=== PATIENT | female | born 1965 ===

== ENCOUNTER 2016-11-16 22:43 | Inpatient (IN) | payer OTHER ==
[2016-11-16 23:54] LABS: VENOUS BLOOD GAS BASE EXCESS -1.5 mmol/L (0.0-2.0); VENOUS BLOOD GAS PCO2 37 mmHg (40-60)
[2016-11-16 23:55] LABS: INR 1.4
[2016-11-16 23:57] LABS: CHLORIDE 93 mmol/L (98-107); POTASSIUM 3.7 mmol/L (3.6-5.2); SODIUM 127 mmol/L (132-148)
[2016-11-17] LABS: ALB/GLOB RATIO 0.8 (1.0-2.1); ALKALINE PHOSPHATASE 114 U/L (38-126); ALT/SGPT 117 U/L (9-52); AST/SGOT 178 U/L (14-36); BILIRUBIN,TOTAL 1.2 mg/dL (0.2-1.3); BLOOD UREA NITROGEN 22 mg/dL (7-17); CARBON DIOXIDE 22 mmol/L (22-30); GFR AFRICAN-AMERICAN > 60; GLUCOSE,RANDOM 195 mg/dL (65-105); TOTAL PROTEIN 6.8 g/dL (6.3-8.3)
[2016-11-17 00:01] LABS: BASO % 1.4 % (0.0-2.0); CALCIUM 7.9 mg/dl (8.6-10.4); EOS % 0.2 % (0.0-4.0); HEMATOCRIT 24.9 % (34.0-47.0); LYMPH # 1.5 K/uL (1.0-4.3); LYMPH % 53.3 % (20.0-40.0); MEAN CELL VOLUME 80.4 fL (81.0-99.0); MEAN CORPUSCULAR HEMOGLOBIN 26.8 pg (27.0-31.0); MEAN CORPUSCULAR HGB CONC 33.3 g/dL (33.0-37.0); MEAN PLATELET VOLUME 9.7 fL (7.2-11.7); MONO # 0.4 K/uL (0.0-0.8); MONO % 12.8 % (0.0-10.0); NRBC % 0.2 % (0.0-2.0); RED CELL DISTRIBUTION WIDTH 20.4 % (11.5-14.5); WHITE BLOOD COUNT 2.9 K/uL (4.8-10.8)
[2016-11-17 00:11] LABS: PLATELET COUNT 46 K/uL (130-400)
[2016-11-17 01:04] LABS: RBC URINE 4 /hpf (0-3); URINE BILIRUBIN NEGATIVE (NEGATIVE); URINE BLOOD 2+ (NEGATIVE); URINE COLOR Straw (YELLOW); URINE GLUCOSE (UA) NORMAL (Normal); URINE KETONE NEGATIVE (NEGATIVE); URINE LEUKOCYTE ESTERASE NEG Leu/uL (Negative); URINE PROTEIN NEGATIVE (NEGATIVE); URINE UROBILINOGEN NORMAL mg/dL (0.2-1.0); WBC URINE 1 /hpf (0-5)
[2016-11-17] MEDS ORDERED: Sodium Chloride 0.9% 1,000 ML IV ONE ×2 (02:33→03:16)
--- NOTE | 2016-11-17 02:43 | C.PDOC ---
History Of Present Illness Patient presents to the emergency room with for complaints of generalized weakness and poor appetite for 2 weeks. reports patient was last seen in [facility] (Former[facility]) 2 weeks ago. says patient was told that she had a UTI and was discharged home with Cipro. notes patient used Cipro for a few days and developed abdominal pain. Patient contacted her PMD and was told to stop using those meds. states that patient continued to experience poor appetite and weakness. Patient denies any fever, chills, diarrhea, cough, shortness of breath, or any other complaints. Time Seen by Provider: 11/16/16 23:16 Chief Complaint (Nursing): Weakness/Neurological Deficit History Per: Patient, Family () History/Exam Limitations: no limitations Onset/Duration Of Symptoms: Other (2 weeks) Current Symptoms Are (Timing): Still Present Associated Symptoms Preceding Syncopal Episode: No Predromal Symptoms (Sudden Onset) Seizure Or Post-ictal Symptoms: None Possible Causative Factor(s): New Medications (Used Cipro a few weeks ago. ) Fall Associated With With Symptoms: No Past Medical History Reviewed: Historical Data, Nursing Documentation, Vital Signs Vital Signs: Last Vital Signs Temp 97.1 F L 11/19/16 15:46 Pulse 67 11/19/16 15:46 Resp 20 11/19/16 15:46 BP 117/76 11/19/16 15:46 Pulse Ox 98 11/19/16 15:46 - Medical History PMH: No Chronic Diseases Surgical History: No Surg Hx Family History: States: Unknown Family Hx - Social History Hx Tobacco Use: No Hx Alcohol Use: No Hx Substance Use: No Review Of Systems Constitutional: Positive for: Weakness (Generalized weakness), Other (Poor appetite). Negative for: Fever, Chills Respiratory: Negative for: Cough, Shortness of Breath Gastrointestinal: Negative for: Diarrhea Physical Exam - Physical Exam Appears: Well, Non-toxic Skin: Normal Color, Warm, Dry Head: Atraumatic, Normacephalic Chest: Symmetrical Cardiovascular: Rhythm Regular, No Murmur Respiratory: Normal Breath Sounds, No Rales, No Rhonchi, No Wheezing Gastrointestinal/Abdominal: Soft, No Tenderness, No Guarding, No Rebound Extremity: Normal ROM, No Pedal Edema Neurological/Psych: Oriented x3, Normal Speech, Normal Cognition ED Course And Treatment - Laboratory Results Result Diagrams: 11/19/16 07:49 11/19/16 07:49 O2 Sat by Pulse Oximetry: 99 Medical Decision Making Medical Decision Making: Plan: -- Head CT -- CXR -- EKG -- Labs Pt stable in the ED however, labs markedly abnormal Pt will need admission for further evaluation and treatment Case discussed with dr Zhong agrees with plan Disposition - Disposition Disposition: HOSPITALIZED Disposition Time: 00:00 Condition: SERIOUS - Clinical Impression Clinical Impression: Pancytopenia, Weakness generalized, Coagulopathy - Scribe Statement The provider has reviewed the documentation as recorded by the Erinnibe Carlos Garcia All medical record entries made by the Erinnibe were at my direction and personally dictated by me. I have reviewed the chart and agree that the record accurately reflects my personal performance of the history, physical exam, medical decision making, and the department course for this patient. I have also personally directed, reviewed, and agree with the discharge instructions and disposition. Decision To Admit - Pt Status Changed To: Hospital Disposition Of: Inpatient - Admit Certification Admit to Inpatient:: After my assessment, the patient will require hospitalization for at least two midnights. This is because of the severity of symptoms shown, intensity of services needed, and/or the medical risk in this patient being treated as an outpatient. - InPatient: Physician Admission Certification: I certify that this patient requires 2 or more midnights of care for the following reason:: see note - . Bed Request Type: Regular Admitting Physician: Ross Ramos Patient Diagnosis: Pancytopenia, Weakness generalized, Coagulopathy
[2016-11-17 04:26] LABS: CHLORIDE 101 mmol/L (98-107); POTASSIUM 3.4 mmol/L (3.6-5.2); SODIUM 133 mmol/L (132-148)
[2016-11-17 04:28] LABS: BILIRUBIN,TOTAL 0.8 mg/dL (0.2-1.3); CARBON DIOXIDE 21 mmol/L (22-30); GFR AFRICAN-AMERICAN > 60
--- NOTE | 2016-11-17 04:28 | CP.PCM.HP ---
<Jennifer Glass - Last Filed: 11/17/16 04:35> History of Present Illness - History of Present Illness History of Present Illness: Internal medicine H & P for Dr. Farheen Glass, PGY-1 Pt S & E at bedside. 51 yo Green[place]ic speaking only F w/PMH sig for constipation admitted to hospital for weakness x 2-3 weeks. Per family- patient went to [facility] approx 3 wks ago- dx w/UTI, d/c'd on Cipro- took a few days of medication, then discontinued it due to abdominal pain per PMD recommendation. Patient has been very weak, talking and moving slower, talking lower than usual, very tired, has been in bed the majority of the days, sleeping a lot, not acting like herself Admits to nausea, fevers Q2 days (Tmax 101.5), chills/whole body shaking, feels cold, dysuria, urinary urgency, suprapubic abdominal pain, cough, dry throat, blurry vision, poor appetite, generalized weakness, fatigue, lethargy, constipation (chronic- last BM 2 days [employer]- eats fiber), cramping of feet, dizziness. Denies emesis, SOB, CP, headache, rhinorrhea, hematuria, urinary frequency, sick contacts, hematochezia, numbness or tingling of extremities. PMH: Constipation PSH: All: NKA SH: Admits to 1/2ppd x 20 yrs tobacco use, denies ETOH or illicit drug use. Is a home school teacher, usually very energetic. FH: Denies Present on Admission - Present on Admission Any Indicators Present on Admission: No History of DVT/PE: No History of Uncontrolled Diabetes: No Urinary Catheter: No Decubitus Ulcer Present: No Review of Systems - Review of Systems All systems: reviewed and no additional remarkable complaints except - Constitutional Constitutional: Chills, Fatigue, Fever, Lethargy, Malaise, Weakness. absent: Headache - EENT Eyes: Blurred Vision. absent: Diplopia Ears: Dizziness Nose/Mouth/Throat: Dry Mouth. absent: Nasal Congestion, Odynophagia, Sore Throat - Cardiovascular Cardiovascular: absent: Chest Pain, Leg Edema, Palpitations - Respiratory Respiratory: Cough. absent: Wheezing - Gastrointestinal Gastrointestinal: Abdominal Pain, Constipation, Nausea. absent: Diarrhea, Hematemesis, Hematochezia, Vomiting - Genitourinary Genitourinary: Dysuria, Urinary Urgency. absent: Hematuria, Urinary Frequency - Musculoskeletal Musculoskeletal: Muscle Cramps (feet). absent: Numbness, Tingling - Integumentary Integumentary: absent: Rash - Neurological Neurological: Dizziness, Weakness. absent: Headaches, Tingling - Psychiatric Psychiatric: Abnormal Sleep Pattern (increased), Change in Appetite (decreased) - Endocrine Endocrine: Polydipsia Past Patient History - Past Social History Smoking Status: Heavy Smoker > 10 Cigarettes Daily - PSYCHIATRIC Hx Substance Use: No - SURGICAL HISTORY Hx Surgeries: No Meds Allergies/Adverse Reactions: Allergies Allergy/AdvReac Type Severity Reaction Status Date / Time No Known Allergies Allergy Unverified 11/16/16 23:03 Physical Exam - Constitutional Appears: No Acute Distress, Other (tired) - Head Exam Head Exam: ATRAUMATIC, NORMAL INSPECTION, NORMOCEPHALIC - Eye Exam Eye Exam: EOMI, Normal appearance, PERRL Pupil Exam: NORMAL ACCOMODATION, PERRL - ENT Exam ENT Exam: Mucous Membranes Moist, Normal Exam Additional comments: lips appear dry - Neck Exam Neck exam: Positive for: Full Rom, Normal Inspection. Negative for: Lymphadenopathy, Tenderness - Respiratory Exam Respiratory Exam: Clear to Auscultation Bilateral, NORMAL BREATHING PATTERN. absent: Rales, Rhonchi, Wheezes - Cardiovascular Exam Cardiovascular Exam: REGULAR RHYTHM, +S1, +S2 - GI/Abdominal Exam GI & Abdominal Exam: Normal Bowel Sounds, Soft, Tenderness (suprapubic). absent : Distended, Firm, Guarding - Extremities Exam Extremities exam: Positive for: normal inspection. Negative for: pedal edema, tenderness - Neurological Exam Neurological exam: Alert, CN II-XII Intact, Oriented x3 Additional comments: speaks slowly, movements are slow - Psychiatric Exam Psychiatric exam: Normal Affect, Normal Mood - Skin Skin Exam: Dry, Intact, Normal Color, Warm Results - Vital Signs Recent Vital Signs: Last Vital Signs Temp 94.7 F L 11/16/16 22:56 Pulse 67 11/16/16 22:56 Resp 17 11/16/16 22:56 BP 115/61 11/16/16 22:56 Pulse Ox 99 11/17/16 02:43 - Labs Result Diagrams: 11/17/16 04:15 11/17/16 04:15 Assessment & Plan - Assessment and Plan (Free Text) Assessment: Weakness Admit to med-surg Fall precautions FU CT brain Abdominal pain U/A neg for leukocyte esterase, ketones, glucose, or nitrates, 2+ blood Morphine Colace Zofran Pancytopenia WBC 2.9 Hgb 8.3, repeat was 7.3 Type and cross FU FOB test Plts 46 FU procalcitonin Monitor for bleeding Heme consult 2/2 pancytopenia- M [place] Hyponatremia Na 127 Monitor Hypokalemia K 3.4 Replaced 20mEq K-Dur Monitor GI/DVT ppx SCDs Contraindications for VTE 2/2 thrombocytopenia Holding GI ppx at this time, avoiding agents that cause thrombocytopenia Dispo Vitals Q4H HHD Consider blood transfusion Consent patient for blood DW attending - Date & Time Date: 11/17/16 Time: 03:45 <Bryant Zhong - Last Filed: 11/17/16 06:33> Results - Vital Signs Recent Vital Signs: Last Vital Signs Temp 94.7 F L 11/16/16 22:56 Pulse 66 11/17/16 04:35 Resp 19 11/17/16 04:35 BP 99/59 L 11/17/16 04:35 Pulse Ox 100 11/17/16 04:35 - Labs Result Diagrams: 11/17/16 04:15 11/17/16 04:15 Labs: Laboratory Results - last 24 hr 11/17/16 04:15 WBC 3.0 L RBC 2.63 L Hgb 7.3 L Hct 21.3 L MCV 80.9 L MCH 27.8 MCHC 34.4 RDW 19.9 H Plt Count 45 L MPV 9.4 Neut % (Auto) 49.2 L Lymph % (Auto) 10.6 L [place] % (Auto) 38.4 H Eos % (Auto) 1.4 Baso % (Auto) 0.4 Neut # 1.5 L Lymph # 0.3 L [place] # 1.2 H Eos # 0.0 Baso # 0.0 Sodium 133 Potassium 3.4 L Chloride 101 Carbon Dioxide 21 L Anion Gap 14 BUN 18 H Creatinine 0.8 Est GFR ( Amer) > 60 Est GFR (Non-Af Amer) > 60 Random Glucose 110 H Calcium 7.6 L Total Bilirubin 0.8 AST 142 H D ALT 103 H Alkaline Phosphatase 105 Total Protein 6.3 Albumin 2.8 L Globulin 3.5 Albumin/Globulin Ratio 0.8 L Assessment & Plan - Date & Time Date: 11/17/16 (I have seen and examined the patient. I agree with the findings and plan of care as documented by Dr. Glass. Patient with hyponatremia. IVF with NS. Recheck in AM. If further decreased, will fluid restrict. For pancytopenia, consult to heme/onc. Denies any alcohol abuse. Check CT abdomen for for abdominal pain. Monitor for acute changes.) Time: 06:31 Attending/Attestation - Attestation I have personally seen and examined this patient.: Yes I have fully participated in the care of the patient.: Yes I have reviewed all pertinent clinical information: Yes
[2016-11-17 04:29] LABS: ALB/GLOB RATIO 0.8 (1.0-2.1); ALKALINE PHOSPHATASE 105 U/L (38-126); ALT/SGPT 103 U/L (9-52); BASO % 0.4 % (0.0-2.0); BLOOD UREA NITROGEN 18 mg/dL (7-17); CALCIUM 7.6 mg/dl (8.6-10.4); EOS % 1.4 % (0.0-4.0); GLUCOSE,RANDOM 110 mg/dL (65-105); HEMATOCRIT 21.3 % (34.0-47.0); LYMPH # 0.3 K/uL (1.0-4.3); LYMPH % 10.6 % (20.0-40.0); MEAN CELL VOLUME 80.9 fL (81.0-99.0); MEAN CORPUSCULAR HEMOGLOBIN 27.8 pg (27.0-31.0); MEAN CORPUSCULAR HGB CONC 34.4 g/dL (33.0-37.0); MEAN PLATELET VOLUME 9.4 fL (7.2-11.7); MONO # 1.2 K/uL (0.0-0.8); MONO % 38.4 % (0.0-10.0); NRBC % 0.2 % (0.0-2.0); RED CELL DISTRIBUTION WIDTH 19.9 % (11.5-14.5); TOTAL PROTEIN 6.3 g/dL (6.3-8.3)
[2016-11-17 04:31] LABS: PLATELET COUNT 45 K/uL (130-400)
[2016-11-17 04:36] LABS: EOSINOPHIL 1 % (0-4); NEUTROPHIL 51 % (50-75); NUCLEATED RED BLOOD CELL 2 % (0-0); REACTIVE LYMPHOCYTES 20 % (0-0); TOTAL CELLS COUNTED 100
[2016-11-17 04:37] LABS: LARGE PLATELETS PRESENT
[2016-11-17 04:58] LABS: AST/SGOT 142 U/L (14-36)
[2016-11-17] MEDS ORDERED: Potassium Chloride 20 mEq ER Tab PO ONE ×3 (05:00→09:45)
[2016-11-17 09:11] LABS: EOSINOPHIL 1 % (0-4); REACTIVE LYMPHOCYTES 1 % (0-0); TOTAL CELLS COUNTED 100
[2016-11-17 09:12] LABS: NEUTROPHIL 57 % (50-75)
[2016-11-17 09:14] LABS: SPHEROCYTES SLIGHT
[2016-11-17 09:15] LABS: LARGE PLATELETS PRESENT
--- NOTE | 2016-11-17 09:28 | CT ---
PROCEDURE: CT HEAD WITHOUT CONTRAST. HISTORY: Weakness COMPARISON: None available. TECHNIQUE: Axial computed tomography images were obtained through the head/brain without intravenous contrast. Radiation dose: Total exam DLP = 747.41 mGy-cm. FINDINGS: HEMORRHAGE: No intracranial hemorrhage. BRAIN: . No evidence large infarct. Mild generalized volume loss. Minor vascular calcifications are present. VENTRICLES: Unremarkable. No hydrocephalus. CALVARIUM: Unremarkable. PARANASAL SINUSES: Frontal sinuses are hypoplastic. The remaining visualized paranasal sinuses are well-developed. . No significant inflammatory changes. MASTOID AIR CELLS: Unremarkable as visualized. No inflammatory changes. OTHER FINDINGS: None. IMPRESSION: No acute intracranial hemorrhage.
--- NOTE | 2016-11-17 10:21 | CT ---
PROCEDURE: CT Abdomen and Pelvis dated 11/17/2016. HISTORY: abdominal pain COMPARISON: None. TECHNIQUE: Contiguous axial images of the abdomen and pelvis performed in standard fashion without oral or intravenous contrast material. . Coronal and Sagittal reformats generated. Radiation dose: Total exam DLP = 266.83 mGy-cm. FINDINGS: LOWER THORAX: Lung bases are clear. No infiltrate effusion or basilar pneumothorax. Small hiatal hernia. Heart size within range of normal. The cardiac chambers exhibit slight low attenuation suggesting anemia. Clinical correlation recommended. LIVER: Liver exhibits normal size measuring approximately 14.7 cm in CC dimension. There is a well-circumscribed round/elliptical the shaped low-attenuation focus left lobe liver bordering anterior margin and measures 22.5 x 16.6 mm most likely representing a hepatic cyst with Hounsfield units in the low single digits. GALLBLADDER AND BILE DUCTS: Gallbladder is physiologically distended. No evidence of intraluminal gallbladder calculi. PANCREAS: The pancreatic head is the poorly delineated with what appears to represent infiltration changes in the adjacent peripancreatic fat. In addition, infiltration changes extend at along the retroperitoneum with multiple on small to medium size retroperitoneal lymph nodes however due to the lack of circulating intravenous contrast material on the study is somewhat limited. . This finding nonspecific. Findings could represent pancreatitis however malignancy or retroperitoneal fibrosis not excluded. . Correlation with serum amylase and lipase recommended SPLEEN: Spleen is upper limits of normal/borderline enlarged measuring approximately 12.5 cm. No splenic mass collection or calcification. ADRENALS: Right adrenal gland appears unremarkable. What appears represent left adrenal gland is also normal however given the aforementioned retroperitoneal adenopathy evaluation of the left adrenal gland is somewhat limited KIDNEYS AND URETERS: Kidneys demonstrate relatively symmetric size. No evidence of nephrolithiasis or hydronephrosis. BLADDER: The urinary bladder is physiologically distended. No evidence of intraluminal urinary bladder calculi. REPRODUCTIVE: The uterus is enlarged and somewhat bulky in appearance suggesting uterine fibroids. Pelvic ultrasound could confirm APPENDIX: Unremarkable. BOWEL: Evaluation of the bowel is limited due to the lack of oral contrast material. The stomach is incompletely distended which presumably accounts for slight thick-walled appearance. Possibility of a gastritis not excluded. Visualized loops of small bowel exhibit normal contour and caliber. No evidence acute mechanical small bowel obstruction. Moderate amount of stool seen within the cecum, ascending and to a lesser degree transverse colon. PERITONEUM: Unremarkable. No fluid collection. No free air. LYMPH NODES: As above. VASCULATURE: No evidence of abdominal aortic aneurysm. BONES: The osseous structures intact. OTHER FINDINGS: None. IMPRESSION: Limited study as above. The pancreatic head is poorly delineated though appears slightly increased in size with infiltration changes in the adjacent peripancreatic fat and infiltration also noted along most a good portion of the retroperitoneum. Mi in addition, there also appears to be large retroperitoneal lymph nodes. Findings could represent pancreatitis and therefore followup serum lipase and amylase suggested. Malignant adenopathy not excluded; rule out lymphoma and/or leukemia. Rule out retroperitoneal fibrosis. . Enlarged bulky uterus likely due to uterine fibroids however nonemergent pelvic ultrasound could confirm. Small hepatic cyst.
--- NOTE | 2016-11-17 10:53 | RAD ---
HISTORY: weakness COMPARISON: No prior. FINDINGS: LUNGS: No active pulmonary disease. PLEURA: No significant pleural effusion identified, no pneumothorax apparent. CARDIOVASCULAR: Normal. OSSEOUS STRUCTURES: No significant abnormalities. VISUALIZED UPPER ABDOMEN: Normal. OTHER FINDINGS: None. IMPRESSION: No active disease.
[2016-11-17] MEDS ORDERED: Sodium Chloride 0.9% 1,000 ML IV SCH (11:45)
[2016-11-17] MEDS: Sodium Chloride 0.9% 1,000 ML IV SCH (12:23)
--- NOTE | 2016-11-17 12:26 | CP.PCM.PN ---
Subjective - Date & Time of Evaluation Date of Evaluation: 11/17/16 Time of Evaluation: 11:30 - Subjective Subjective: Medical Attending Note Follow-up: Weakness, Pancytopenia, Transaminitis, Lack of Appetite, Unintentional weight loss, Abnormal CT Abdomen Patient seen and examined in Bed [facility]. Patient reports she has been feeling weakness over the past month. Patient reports unintentional weight loss of 13 lbs. Patient reports lack of appetite. Denies dysphagia, denies odonophagia. Patient reports visited [place] about a month ago, completed Ciprofloxin for about one week for urinary tract infection. Patient denies black stools. Denies BPBPR. Patient denies cough. Patient reports she has had mammography about 2 years ago which she reports was normal. Denies history of HIV. Patient at bedside has barely touched her food. Patient denies nausea, denies vomitting. Spoke with heme-onc (Dr. Kenyon chavarria covering Dr Shasha Chavarria) will come by and see the patient. Recommending for CT chest given smoking history and patient may need bone marrow but will assess the patient first. Objective - Vital Signs/Intake and Output Vital Signs (last 24 hours): Temp Pulse Resp BP Pulse Ox 97.4 F L 76 16 98/70 L 100 11/17/16 11:05 11/17/16 12:05 11/17/16 12:05 11/17/16 12:05 11/17/16 12:05 - Medications Medications: Current Medications Docusate Sodium (Colace) 100 mg PO DAILY [facility] Last Admin: 11/17/16 12:05 Dose: 100 mg Sodium Chloride (Sodium Chloride 0.9%) 1,000 mls @ 100 mls/hr IV .Q10H [facility] Ceftriaxone Sodium (Rocephin Iv 1 Gm Duplex) 50 mls @ 50 mls/30 min IVPB DAILY [facility] Ondansetron HCl (Zofran Inj) 4 mg IVP Q6H PRN PRN Reason: Nausea/Vomiting - Labs Labs: 11/17/16 04:15 11/17/16 04:15 PT 16.0 SECONDS (9.7-12.2) H 11/16/16 23:44 INR 1.4 11/16/16 23:44 APTT 29 SECONDS (21-34) 11/16/16 23:44 - Constitutional Appears: Non-toxic, No Acute Distress, Chronically Ill - Head Exam Head Exam: NORMAL INSPECTION - Eye Exam Eye Exam: EOMI Pupil Exam: PERRL - ENT Exam ENT Exam: Mucous Membranes Dry - Respiratory Exam Respiratory Exam: Clear to Ausculation Bilateral, NORMAL BREATHING PATTERN. absent: Rales, Rhonchi, Wheezes - Cardiovascular Exam Cardiovascular Exam: REGULAR RHYTHM, +S1, +S2. absent: Tachycardia, RRR - GI/Abdominal Exam GI & Abdominal Exam: Soft, Normal Bowel Sounds. absent: Distended, Firm, Guarding, Rigid, Tenderness, Rebound - Extremities Exam Extremities Exam: Normal Capillary Refill. absent: Pedal Edema, Tenderness - Back Exam Back Exam: absent: CVA tenderness (L), CVA tenderness (R), rash noted - Neurological Exam Neurological Exam: Alert, Awake, Oriented x3 Neuro motor strength exam: Left Upper Extremity: 4, Right Upper Extremity: 4, Left Lower Extremity: 4, Right Lower Extremity: 4 - Psychiatric Exam Psychiatric exam: Normal Affect, Normal Mood - Skin Skin Exam: Dry, Intact, Pallor, Warm. absent: Erythema, Mottled, Petechiae, Rash, Vesicles Assessment and Plan (1) Sepsis Assessment & Plan: High suspicion for sepsis Criteria: T<96.8 (94.7), WBC< 4 on admission; hypotension (on IV fluids), pancytopenia, transaminitis Procalcitonin: 0.57 Unknown source Blood cultures collected Urine culture collected Started on Rocephin 1 gram IV q daily heme-onc (Dr. Shasha Chavarria): pancytopenia, unknown origin-->recommended for CT Chest , and possible bone marrow ICU consult given possible sepsis Status: Acute (2) Pancytopenia Assessment & Plan: Heme-onc (Dr. Shasha Chavarria): Dr. Kenyon Chavarria covering; will come and see the patient today; may need bone marrow Ordered for iron studies, B12, folate, haptoglobin, occult blood, reticulocyte count, HIV, hepatitis panel, uds Ct abdomen (w/o contrast): pancreatic head is poorly delienated though appears slightly increased in size and infiltration changes in the adjacent peripancreatic fat and infiltration aslo noted most good portion of retroperitoneal lymph nodes. Could repeats pancreatitis, serum lipase and amylase. malignant adenopathy not excluded, rule out lymphona, and /or leukemia. rule retroperitoneal fibriosis. enalrged bulky uterus likely due to uterine fibroids. small hepatitic cysts Status: Acute (3) Weakness generalized Assessment & Plan: see sepsis and pancytopenia workup also ordered for CPK, TSH, UDS Status: Acute (4) Transaminitis Assessment & Plan: hepatitis panel Abdominal US possible sign of sepsis Status: Acute (5) Prophylactic measure Assessment & Plan: VTE contraindication secondary to anemia GI ppx contraindication secondary to thrombocytopenia Status: Acute
[2016-11-17 12:44] LABS: DRAW SITE RBA
[2016-11-17 13:41] LABS: RETIC% 0.4 % (0.5-1.5)
[2016-11-17 14:20] LABS: THYROID STIMULATING HORMONE 1.09 mIU/L (0.46-4.68)
--- NOTE | 2016-11-17 14:45 | CP.PCM.CON ---
History of Present Illness - History of Present Illness History of Present Illness: 51-year-old female with the only significant past medical history of long-time smoking, 3-4 cigarettes a day for most of her lifetime. presents with several weeks of weakness and difficulty ambulating. Patient also states that she has had several months with lack of appetite, with unintentional 13 pound weight loss. Patient denies any significant family history, parents are still alive. Review of Systems - Review of Systems All systems: reviewed and no additional remarkable complaints except - Constitutional Constitutional: Weight Loss, Weakness Past Patient History - Past Social History Smoking Status: Light Smoker < 10 Cigarettes Daily - PSYCHIATRIC Hx Substance Use: No - SURGICAL HISTORY Hx Surgeries: No Meds Allergies/Adverse Reactions: Allergies Allergy/AdvReac Type Severity Reaction Status Date / Time No Known Allergies Allergy Unverified 11/16/16 23:03 - Medications Medications: Current Medications Docusate Sodium (Colace) 100 mg PO DAILY [facility] Last Admin: 11/17/16 12:05 Dose: 100 mg Sodium Chloride (Sodium Chloride 0.9%) 1,000 mls @ 100 mls/hr IV .Q10H [facility] Last Admin: 11/17/16 12:23 Dose: 100 mls/hr Ceftriaxone Sodium (Rocephin Iv 1 Gm Duplex) 50 mls @ 50 mls/30 min IVPB DAILY [facility] Ondansetron HCl (Zofran Inj) 4 mg IVP Q6H PRN PRN Reason: Nausea/Vomiting Physical Exam - Constitutional Appears: Chronically Ill - Head Exam Head Exam: ATRAUMATIC, NORMAL INSPECTION, NORMOCEPHALIC - Eye Exam Eye Exam: EOMI, Normal appearance, PERRL - ENT Exam ENT Exam: Mucous Membranes Moist, Normal Exam - Respiratory Exam Respiratory Exam: Clear to Auscultation Bilateral, NORMAL BREATHING PATTERN - Cardiovascular Exam Cardiovascular Exam: REGULAR RHYTHM - GI/Abdominal Exam GI & Abdominal Exam: Normal Bowel Sounds, Soft. absent: Tenderness - Extremities Exam Extremities exam: Positive for: normal inspection - Neurological Exam Neurological exam: Alert, CN II-XII Intact, Oriented x3, Reflexes Normal - Psychiatric Exam Psychiatric exam: Depressed Results - Vital Signs Recent Vital Signs: Last Vital Signs Temp 97.4 F L 11/17/16 11:05 Pulse 75 11/17/16 14:21 Resp 16 11/17/16 14:21 BP 107/71 11/17/16 14:21 Pulse Ox 100 11/17/16 14:21 - Labs Result Diagrams: 11/17/16 04:15 11/17/16 04:15 Labs: Laboratory Results - last 24 hr 11/17/16 11/17/16 11/17/16 04:15 05:21 12:35 WBC 3.0 L RBC 2.63 L Hgb 7.3 L Hct 21.3 L MCV 80.9 L MCH 27.8 MCHC 34.4 RDW 19.9 H Plt Count 45 L MPV 9.4 Neut % (Auto) 49.2 L Lymph % (Auto) 10.6 L [place] % (Auto) 38.4 H Eos % (Auto) 1.4 Baso % (Auto) 0.4 Neut # 1.5 L Lymph # 0.3 L [place] # 1.2 H Eos # 0.0 Baso # 0.0 Neutrophils % (Manual) 57 Band Neutrophils % 2 Lymphocytes % (Manual) 17 L Reactive Lymphs % 1 H Monocytes % (Manual) 22 H Eosinophils % (Manual) 1 Platelet Estimate Markedly decreased L Large Platelets Present Hypochromasia (manual) Slight Poikilocytosis (manual Slight Anisocytosis (manual) Slight Microcytosis (manual) Slight Macrocytosis (manual) Slight Spherocytes Slight Target Cells Slight Tear Drop Cells Slight Ovalocytes Slight Retic Count Puncture Site Rba pCO2 29 L pO2 101 H HCO3 22.9 ABG pH 7.45 ABG Total CO2 21.1 L ABG O2 Saturation 100.3 H ABG Base Excess -2.6 L Sravan Test N/a ABG Potassium 4.0 Glucose 118 H Lactate 0.6 L Sodium 133 136.0 Potassium 3.4 L Chloride 101 113.0 H Carbon Dioxide 21 L Anion Gap 14 BUN 18 H Creatinine 0.8 Est GFR ( Amer) > 60 Est GFR (Non-Af Amer) > 60 Random Glucose 110 H Calcium 7.6 L TIBC % Saturation Total Bilirubin 0.8 GGT AST 142 H D ALT 103 H Alkaline Phosphatase 105 Lactate Dehydrogenase Total Creatine Kinase C-React Prot High Sens Total Protein 6.3 Albumin 2.8 L Globulin 3.5 Albumin/Globulin Ratio 0.8 L Procalcitonin 0.57 H TSH 3rd Generation Arterial Blood Potassium 4.0 Urine HCG, Qual Stool Occult Blood Blood Type A POSITIVE Antibody Screen Negative 11/17/16 11/17/16 13:07 13:29 WBC RBC Hgb Hct MCV MCH MCHC RDW Plt Count MPV Neut % (Auto) Lymph % (Auto) [place] % (Auto) Eos % (Auto) Baso % (Auto) Neut # Lymph # [place] # Eos # Baso # Neutrophils % (Manual) Band Neutrophils % Lymphocytes % (Manual) Reactive Lymphs % Monocytes % (Manual) Eosinophils % (Manual) Platelet Estimate Large Platelets Hypochromasia (manual) Poikilocytosis (manual Anisocytosis (manual) Microcytosis (manual) Macrocytosis (manual) Spherocytes Target Cells Tear Drop Cells Ovalocytes Retic Count 0.4 L Puncture Site pCO2 pO2 HCO3 ABG pH ABG Total CO2 ABG O2 Saturation ABG Base Excess Sravan Test ABG Potassium Glucose Lactate Sodium Potassium Chloride Carbon Dioxide Anion Gap BUN Creatinine Est GFR ( Amer) Est GFR (Non-Af Amer) Random Glucose Calcium TIBC 201 L % Saturation 45 Total Bilirubin GGT 65 AST ALT Alkaline Phosphatase Lactate Dehydrogenase 772 H Total Creatine Kinase 60 C-React Prot High Sens > 15.00 H Total Protein Albumin Globulin Albumin/Globulin Ratio Procalcitonin TSH 3rd Generation 1.09 Arterial Blood Potassium Urine HCG, Qual Negative Stool Occult Blood Positive H Blood Type Antibody Screen Assessment & Plan (1) Pancytopenia Assessment and Plan: 51-year-old female with significant history of smoking. Presents with generalized weakness, lack of appetite, difficulty ambulating. Neuro: Alert and oriented 3, no focal neurologic deficits. Pulm: No acute issues, breathing spontaneously on room air. CV: Mildly hypotensive, patient does not know her home baseline blood pressure. Continue fluid resuscitation. Hem: Pancytopenia, etiology uncertain. I suspicion for underlying carcinoma. Patient is guaiac positive with retroperitoneal lymph nodes on CT abdomen, we' ll have to rule out colon cancer or ovarian cancer. Will obtain CT chest abdomen and pelvis with contrast. Renal: Would continue normal saline at 125. Endo: No acute issues GI: Regular diet, transaminitis, can obtain hepatitis panel, CT abdomen with contrast to rule out Hepatic metastasis. ID: No obvious source of infection, lactate is within normal range, pancytopenia could be secondary to sepsis versus underlying malignancy. Follow- up blood cultures, can start empiric broad-spectrum antibiotics but necessity is questionable currently. DVT proph - Lovenox GI proph - not currently indicated Code status - full code Patient appears ill and weak. Patient should be hospitalized, but no indication to admit to ICU currently. Can continue current management on the floors on the hospitalist care, please reconsult ICU if patient's clinical status changes. Crtical Care Time spent 35 minutes The documented time is cumulative and includes review of patient data/exams/labs /chart review and examination of the patient on rounds and throughout the day; time is exclusive of any procedures or teaching time. Status: Acute
[2016-11-17 14:54] LABS: FOLATE 14.2 ng/mL
[2016-11-17] MEDS: cefTRIAXone IV 1 gm in Dextros 50 ML IVPB SCH (18:04)
--- NOTE | 2016-11-17 18:07 | US ---
Pelvic ultrasound dated 11/17/2016. History: Assess pelvic mass. Sonographic evaluation of the pelvis performed. Findings: The uterus is anteverted measuring approximately 8.6 x 6.7 x 8.0 cm. . Multiple large fibroids are present the largest measuring 6.5 x 5.6 x 5.3 cm and the next largest 3.0 x2.7 x 2.8 Endometrial stripe measures approximately 1.0 cm. This could be due to oil painter phase of the endometrial cycle if this patient is still undergoing menstruation however this would be abnormally thickened in a postmenopausal patient. Consider followup ultrasound in 6 weeks to assess for catholic of normal endometrial thickness however consider additional endometrial studies to exclude other endometrial pathology including endometrial hyperplasia, polyps or endometrial carcinoma. . Small amount of fluid is also felt to be present within the endometrial cavity. Neither adnexa visualized. Impression: . Uterine fibroids. Endometrial stripe measures approximate 1 cm which could be due to oil painter phase of the endometrial cycle if this patient is still undergoing menstruation however of this would be abnormally thickened in a postmenopausal patient. Clinic correlation recommended. Small amount of fluid in the endometrial canal is also present. Recommend repeat ultrasound 6 weeks to assess for catholic of normal endometrial thickness however consider additional studies if this patient is postmenopausal to exclude endometrial pathology vented above Neither adnexa visualized.
[2016-11-17] MEDS ORDERED: cefTRIAXone IV 1 gm in Dextros 50 ML IVPB ONE (18:08)
--- NOTE | 2016-11-17 19:54 | US ---
Abdominal ultrasound dated 11/17/2016 Sonographic evaluation of the abdomen performed. Comparison made with prior CT scan abdomen pelvis earlier same day Liver exhibits normal size measuring nearly 14 cm in CC dimension. Liver did demonstrates smooth contour and normal echotexture. Again seen is a hepatic cyst left lobe liver measuring 2.4 x 2.2 x 2.8 cm. Gallbladder is physiologically distended. No evidence of intraluminal gallbladder calculi. No pericholecystic fluid collections or sonographic Garcia sign. Common bile duct measures 4.2 mm. Spleen exhibits normal size and attenuation pattern without mass collection or calcification. Pancreas exhibits normal appearance as well with no mass collection or calcification. Both kidneys exhibit symmetric size. No evidence of nephrolithiasis or hydronephrosis Impression: Small hepatic cyst left lobe liver. No other abnormalities. .
--- NOTE | 2016-11-17 21:18 | CP.PCM.CON ---
History of Present Illness - History of Present Illness History of Present Illness: 51 year old female with no past medical history, admitted with subjective fevers , weightloss, and failure to thrive, found to be pancytopenic. The patient reports to being treated for a UTI at [facility] about 2 weeks ago. Her symptoms have not resolved and she sought care here. She denies abnormal bleeding and bruising. She is unaware of ever having blood problems in the past but has not seen a doctor for several years. Past medical history: None Past surgical history: None Family history: Denies hematologic and oncologic problems Social history: Smokes 1 pack - 2 cigs daily x 20 yeras, denies alcohol, and illicit drug use. Allergies: NKA Review of systems: All remaining review of systems including HEENT, cardiovascular, respiratory, gastrointestinal, genitourinary, musculoskeletal, dermatologic, neurologic, and psychiatric are negative unless mentioned in the HPI. Past Patient History - Past Social History Smoking Status: Light Smoker < 10 Cigarettes Daily - PSYCHIATRIC Hx Substance Use: No - SURGICAL HISTORY Hx Surgeries: No Meds Allergies/Adverse Reactions: Allergies Allergy/AdvReac Type Severity Reaction Status Date / Time No Known Allergies Allergy Unverified 11/16/16 23:03 - Medications Medications: Current Medications Docusate Sodium (Colace) 100 mg PO DAILY [facility] Last Admin: 11/17/16 12:05 Dose: 100 mg Sodium Chloride (Sodium Chloride 0.9%) 1,000 mls @ 100 mls/hr IV .Q10H [facility] Last Admin: 11/17/16 12:23 Dose: 100 mls/hr Ceftriaxone Sodium (Rocephin Iv 1 Gm Duplex) 50 mls @ 50 mls/30 min IVPB DAILY [facility] Last Admin: 11/17/16 18:04 Dose: 50 mls/30 min Ondansetron HCl (Zofran Inj) 4 mg IVP Q6H PRN PRN Reason: Nausea/Vomiting Physical Exam - Head Exam Head Exam: ATRAUMATIC - Eye Exam Eye Exam: Normal appearance - ENT Exam ENT Exam: Mucous Membranes Dry - Respiratory Exam Respiratory Exam: NORMAL BREATHING PATTERN - Cardiovascular Exam Cardiovascular Exam: +S1, +S2 - GI/Abdominal Exam GI & Abdominal Exam: Normal Bowel Sounds - Extremities Exam Extremities exam: Positive for: normal inspection - Neurological Exam Neurological exam: Oriented x3 - Psychiatric Exam Psychiatric exam: Normal Affect, Normal Mood - Skin Skin Exam: Warm Results - Vital Signs Recent Vital Signs: Last Vital Signs Temp 97.3 F L 11/17/16 20:01 Pulse 71 11/17/16 20:01 Resp 18 11/17/16 20:01 BP 98/64 L 11/17/16 20:01 Pulse Ox 99 11/17/16 20:01 - Labs Result Diagrams: 11/17/16 04:15 11/17/16 04:15 Labs: Laboratory Results - last 24 hr 11/17/16 11/17/16 11/17/16 04:15 05:21 12:35 WBC 3.0 L RBC 2.63 L Hgb 7.3 L Hct 21.3 L MCV 80.9 L MCH 27.8 MCHC 34.4 RDW 19.9 H Plt Count 45 L MPV 9.4 Neut % (Auto) 49.2 L Lymph % (Auto) 10.6 L [place] % (Auto) 38.4 H Eos % (Auto) 1.4 Baso % (Auto) 0.4 Neut # 1.5 L Lymph # 0.3 L [place] # 1.2 H Eos # 0.0 Baso # 0.0 Neutrophils % (Manual) 57 Band Neutrophils % 2 Lymphocytes % (Manual) 17 L Reactive Lymphs % 1 H Monocytes % (Manual) 22 H Eosinophils % (Manual) 1 Platelet Estimate Markedly decreased L Large Platelets Present Hypochromasia (manual) Slight Poikilocytosis (manual Slight Anisocytosis (manual) Slight Microcytosis (manual) Slight Macrocytosis (manual) Slight Spherocytes Slight Target Cells Slight Tear Drop Cells Slight Ovalocytes Slight ESR Retic Count Puncture Site Rba pCO2 29 L pO2 101 H HCO3 22.9 ABG pH 7.45 ABG Total CO2 21.1 L ABG O2 Saturation 100.3 H ABG Base Excess -2.6 L Sravan Test N/a ABG Potassium 4.0 Glucose 118 H Lactate 0.6 L Sodium 133 136.0 Potassium 3.4 L Chloride 101 113.0 H Carbon Dioxide 21 L Anion Gap 14 BUN 18 H Creatinine 0.8 Est GFR ( Amer) > 60 Est GFR (Non-Af Amer) > 60 Random Glucose 110 H Calcium 7.6 L TIBC % Saturation Ferritin Total Bilirubin 0.8 GGT AST 142 H D ALT 103 H Alkaline Phosphatase 105 Lactate Dehydrogenase Total Creatine Kinase C-React Prot High Sens Total Protein 6.3 Albumin 2.8 L Globulin 3.5 Albumin/Globulin Ratio 0.8 L Vitamin B12 Folate Procalcitonin 0.57 H TSH 3rd Generation Arterial Blood Potassium 4.0 Urine HCG, Qual Stool Occult Blood Urine Opiates Screen Urine Methadone Screen Ur Barbiturates Screen Ur Phencyclidine Scrn Ur Amphetamines Screen U Benzodiazepines Scrn U Oth Cocaine Metabols U Cannabinoids Screen Blood Type A POSITIVE Antibody Screen Negative 11/17/16 11/17/16 11/17/16 13:07 13:29 19:15 WBC RBC Hgb Hct MCV MCH MCHC RDW Plt Count MPV Neut % (Auto) Lymph % (Auto) [place] % (Auto) Eos % (Auto) Baso % (Auto) Neut # Lymph # [place] # Eos # Baso # Neutrophils % (Manual) Band Neutrophils % Lymphocytes % (Manual) Reactive Lymphs % Monocytes % (Manual) Eosinophils % (Manual) Platelet Estimate Large Platelets Hypochromasia (manual) Poikilocytosis (manual Anisocytosis (manual) Microcytosis (manual) Macrocytosis (manual) Spherocytes Target Cells Tear Drop Cells Ovalocytes ESR 103 H Retic Count 0.4 L Puncture Site pCO2 pO2 HCO3 ABG pH ABG Total CO2 ABG O2 Saturation ABG Base Excess Sravan Test ABG Potassium Glucose Lactate Sodium Potassium Chloride Carbon Dioxide Anion Gap BUN Creatinine Est GFR ( Amer) Est GFR (Non-Af Amer) Random Glucose Calcium TIBC 201 L % Saturation 45 Ferritin 8420.0 Total Bilirubin GGT 65 AST ALT Alkaline Phosphatase Lactate Dehydrogenase 772 H Total Creatine Kinase 60 C-React Prot High Sens > 15.00 H Total Protein Albumin Globulin Albumin/Globulin Ratio Vitamin B12 > 1000 H Folate 14.2 Procalcitonin TSH 3rd Generation 1.09 Arterial Blood Potassium Urine HCG, Qual Negative Stool Occult Blood Positive H Urine Opiates Screen Negative Urine Methadone Screen Negative Ur Barbiturates Screen Negative Ur Phencyclidine Scrn Negative Ur Amphetamines Screen Negative U Benzodiazepines Scrn Negative U Oth Cocaine Metabols Negative U Cannabinoids Screen Negative Blood Type Antibody Screen Assessment & Plan (1) Pancytopenia Assessment and Plan: will need a bone marrow biopsy - pt wants to think about it anemia work up consistent with chronic disease, FOBT positive transfusion support PRN Status: Acute (2) Pancreatic abnormality Assessment and Plan: CT suggests pancreatic head abnormality GI evaluation Status: Acute (3) Coagulopathy Assessment and Plan: likely nutritional add fibrinogen to AM labs Thank you for this interesting consult. Status: Acute
[2016-11-18] MEDS: Sodium Chloride 0.9% 1,000 ML IV SCH ×2 (05:17→17:46)
[2016-11-18 08:22] LABS: CHLORIDE 108 mmol/L (98-107); SODIUM 139 mmol/L (132-148)
[2016-11-18 08:23] LABS: POTASSIUM 4.3 mmol/L (3.6-5.2)
[2016-11-18 08:24] LABS: BILIRUBIN,TOTAL 0.2 mg/dL (0.2-1.3); GFR AFRICAN-AMERICAN > 60
[2016-11-18 08:25] LABS: ALB/GLOB RATIO 0.8 (1.0-2.1); ALKALINE PHOSPHATASE 83 U/L (38-126); ALT/SGPT 67 U/L (9-52); AST/SGOT 68 U/L (14-36); BLOOD UREA NITROGEN 10 mg/dL (7-17); CALCIUM 7.5 mg/dl (8.6-10.4); CARBON DIOXIDE 19 mmol/L (22-30); GLUCOSE,RANDOM 97 mg/dL (65-105); PHOSPHOROUS 3.5 mg/dL (2.5-4.5); TOTAL PROTEIN 5.1 g/dL (6.3-8.3)
[2016-11-18 08:26] LABS: MAGNESIUM 1.9 mg/dL (1.6-2.3)
[2016-11-18 08:34] LABS: MEAN CELL VOLUME 82.4 fL (81.0-99.0); MEAN CORPUSCULAR HEMOGLOBIN 27.1 pg (27.0-31.0); MEAN CORPUSCULAR HGB CONC 32.8 g/dL (33.0-37.0); MEAN PLATELET VOLUME 10.6 fL (7.2-11.7); RED CELL DISTRIBUTION WIDTH 20.5 % (11.5-14.5); WHITE BLOOD COUNT 2.6 K/uL (4.8-10.8)
[2016-11-18] MEDS ORDERED: Iohexol 240 (50 ml) PO ONE (08:45)
[2016-11-18] MEDS: cefTRIAXone IV 1 gm in Dextros 50 ML IVPB SCH (09:23)
[2016-11-18 10:50] LABS: MONO # 0.2 K/uL (0.0-0.8)
[2016-11-18] MEDS ORDERED: Iodixanol 320 MG/ML 100 ML BOTTLE IV ONE (12:46)
--- NOTE | 2016-11-18 14:24 | CP.PCM.PN ---
<Jennifer Glass - Last Filed: 11/18/16 14:21> Subjective - Date & Time of Evaluation Date of Evaluation: 11/18/16 Time of Evaluation: 14:21 - Subjective Subjective: Internal medicine progress note for Dr. Jones-Jennifer Glass, PGY-1 Pt S & E at bedside. Pt reports suprapubic abdominal pain, still with weakness. Denies N/V/F/C, SOB , CP. Is not interested in eating/appetite poor. Objective - Vital Signs/Intake and Output Vital Signs (last 24 hours): Temp Pulse Resp BP Pulse Ox 97.7 F 58 L 18 97/62 L 98 11/18/16 07:50 11/18/16 14:00 11/18/16 07:50 11/18/16 07:50 11/18/16 07:50 Intake and Output: 11/18/16 11/18/16 06:59 18:59 Intake Total 900 Balance 900 - Medications Medications: Current Medications Docusate Sodium (Colace) 100 mg PO DAILY [facility] Last Admin: 11/18/16 09:22 Dose: 100 mg Sodium Chloride (Sodium Chloride 0.9%) 1,000 mls @ 100 mls/hr IV .Q10H [facility] Last Admin: 11/18/16 05:17 Dose: 100 mls/hr Ceftriaxone Sodium (Rocephin Iv 1 Gm Duplex) 50 mls @ 50 mls/30 min IVPB DAILY [facility] Last Admin: 11/18/16 09:23 Dose: 50 mls/30 min Ondansetron HCl (Zofran Inj) 4 mg IVP Q6H PRN PRN Reason: Nausea/Vomiting - Labs Labs: 11/18/16 07:52 11/18/16 07:52 PT 16.0 SECONDS (9.7-12.2) H 11/16/16 23:44 INR 1.4 11/16/16 23:44 APTT 29 SECONDS (21-34) 11/16/16 23:44 - Constitutional Appears: Non-toxic, No Acute Distress, Other (ill appearing) - Head Exam Head Exam: ATRAUMATIC, NORMAL INSPECTION, NORMOCEPHALIC - Eye Exam Eye Exam: EOMI, Normal appearance, PERRL Pupil Exam: NORMAL ACCOMODATION, PERRL - ENT Exam ENT Exam: Mucous Membranes Moist, Normal Exam - Neck Exam Neck Exam: Full ROM, Normal Inspection - Respiratory Exam Respiratory Exam: Clear to Ausculation Bilateral, NORMAL BREATHING PATTERN. absent: Accessory Muscle Use, Rales, Rhonchi, Wheezes - Cardiovascular Exam Cardiovascular Exam: REGULAR RHYTHM, +S1, +S2 - GI/Abdominal Exam GI & Abdominal Exam: Soft, Tenderness (suprapubic- mild), Normal Bowel Sounds. absent: Distended, Firm, Guarding - Extremities Exam Extremities Exam: Normal Inspection. absent: Tenderness - Neurological Exam Neurological Exam: Alert, Awake, CN II-XII Intact, Oriented x3 - Psychiatric Exam Psychiatric exam: Normal Affect, Normal Mood - Skin Skin Exam: Dry, Intact, Normal Color, Warm Assessment and Plan - Assessment and Plan (Free Text) Assessment: Weakness Fall precautions CT brain neg for intracranial bleed UDS neg Sepsis WBC 2.6 from 2.9 Afebrile over last 24H Blood cxr neg x 24H FU urine cx Cont Rocephin 1gm IV daily Abdominal pain U/A neg for leukocyte esterase, ketones, glucose, or nitrates, 2+ blood Morphine Colace Zofran CT ab w/o cont w/findings of pancreatic head poorly delineated -appears slightly increased in size w/infiltration changes in adj peripancreatic fat & infiltration also noted along most a good portion of the retroperitoneum. Also appears to be large retroperitoneal lymph nodes. Findings could rep pancreatitis - rec serum lipase, amylase. Malignant adenopathy not excluded; R/O lymphoma and/or leukemia. R/O retroperitoneal fibrosis. Enlarged bulky uterus likely due to uterine fibroids however nonemergent pelvic U/S rec Pelvis U/S + for uterine fibroids Ab U/S - Small hepatic cyst left lobe liver. No other abnormalities FU CT ab/pelvis w/Cont GI consulted - FU recs Pancytopenia WBC 2.6 from 2.9 Hgb 7.2 Transfuse 2 units pRBCs FOB pos for blood Plts 76 from 45 Procalcitonin 0.57 CRP >[address] 0[address]4 LDH 722 HIV neg Monitor for bleeding Heme recs- Bone marrow bw- pt states she will consent to have it done Hypokalemia -resolved K 4.3 Monitor Hyponatremia- resolved Na 139 Monitor GI/DVT ppx SCDs Contraindications for VTE 2/2 thrombocytopenia Holding GI ppx at this time, avoiding agents that cause thrombocytopenia Dispo FU GI recs Bone marrow bx as per Heme/onc Will transfuse blood Consented patient for blood DW attending <Deny Jones - Last Filed: 11/18/16 16:35> Objective - Vital Signs/Intake and Output Vital Signs (last 24 hours): Temp Pulse Resp BP Pulse Ox 97.7 F 58 L 18 97/62 L 98 11/18/16 07:50 11/18/16 14:00 11/18/16 07:50 11/18/16 07:50 11/18/16 07:50 Intake and Output: 11/18/16 11/18/16 06:59 18:59 Intake Total 900 Balance 900 - Medications Medications: Current Medications Docusate Sodium (Colace) 100 mg PO DAILY [facility] Last Admin: 11/18/16 09:22 Dose: 100 mg Sodium Chloride (Sodium Chloride 0.9%) 1,000 mls @ 100 mls/hr IV .Q10H [facility] Last Admin: 11/18/16 05:17 Dose: 100 mls/hr Ceftriaxone Sodium (Rocephin Iv 1 Gm Duplex) 50 mls @ 50 mls/30 min IVPB DAILY [facility] Last Admin: 11/18/16 09:23 Dose: 50 mls/30 min Ondansetron HCl (Zofran Inj) 4 mg IVP Q6H PRN PRN Reason: Nausea/Vomiting - Labs Labs: 11/18/16 07:52 11/18/16 07:52 PT 16.0 SECONDS (9.7-12.2) H 11/16/16 23:44 INR 1.4 11/16/16 23:44 APTT 29 SECONDS (21-34) 11/16/16 23:44 Attending/Attestation - Attestation I have personally seen and examined this patient.: Yes I have fully participated in the care of the patient.: Yes I have reviewed all pertinent clinical information, including history, physical exam and plan: Yes Notes (Text): Medical attending: Patient was seen and examined by me, agree with the above note by the resident. The patient appears to be very very depressed when we saw her today. We had a bottom polisher help as well. Her Hgb continued to decrease - and she does appear to have a pancytopenia. Will give PRBCs today. Patient, with the help of bottom polisher, also agreed to have a bone marror biopsy as had been suggested by Hematology. GI evaluation as well, there is a heme positive stool thank you Deny Jones
--- NOTE | 2016-11-18 16:19 | CT ---
PROCEDURE: CT Chest, Abdomen and Pelvis with intravenous contrast HISTORY: abnormal CT abdomen/pelvis COMPARISON: 11/15/16. TECHNIQUE: IV dose administered: Radiation dose: Total exam DLP = mGy-cm. FINDINGS: CT CHEST WITH CONTRAST: LUNGS: Clear. No nodule, mass or consolidation. MEDIASTINUM: Unremarkable. Normal caliber aorta and pulmonary arterial trunk. No aortic dissection. Normal size heart. LYMPH NODES: Unremarkable. PLEURA: Small left pleural effusion. BONES: Unremarkable. OTHER FINDINGS: None. CT ABDOMEN AND PELVIS: LIVER: Scattered hepatic cysts as well as numerous hypodense masses most likely representing metastatic disease. The largest is in the medial segment measuring 18 millimeters. GALLBLADDER AND BILE DUCTS: Unremarkable. PANCREAS: Unremarkable. No gross lesion or ductal dilatation. SPLEEN: Unremarkable. ADRENALS: Unremarkable. No mass. KIDNEYS AND URETERS: Unremarkable. No hydronephrosis. No solid mass. VASCULATURE: Unremarkable. No aortic aneurysm. BOWEL: Unremarkable. No obstruction. No gross mural thickening. APPENDIX: Normal appendix. PERITONEUM: Unremarkable. No free fluid. No free air. LYMPH NODES: Extensive retroperitoneal lymphadenopathy with the largest lymph node measuring roughly 1 centimeter in the periaortic region. Extensive retroperitoneal fat infiltration. BLADDER: Unremarkable. REPRODUCTIVE: Enlarged presumably leiomyomatous uterus.. BONES: No acute fracture. OTHER FINDINGS: None. IMPRESSION: Numerous hepatic hypodense lesions compatible with metastatic disease. Multiple retroperitoneal lymph nodes with retroperitoneal fat infiltration; correlate clinically for a primary malignancy.
--- NOTE | 2016-11-18 16:46 | CP.PCM.CON ---
<Lae Lino - Last Filed: 11/18/16 16:41> History of Present Illness - History of Present Illness History of Present Illness: Gastroenterology Fellow/PGY4 Consult Note 51 year old female with no prior medical history presenting with weakness. Patient describes loss of energy with associated loss of appetite for one month. She notes eighteen pound weight loss over the last three months. Associated bloating and indigestion. Denies nausea, vomiting, hematemesis, hematochezia, melena, abdominal pain, diarrhea, constipation, acid reflux, heartburn, fever, chills, sweats, shortness of breath, chest pain, dysphagia, odynophagia, or globus sensation. Rare use of NSAIDs and denies alcohol use. No prior EGD or colonoscopy. Family-denies colon cancer Social-2 cigarettes/day x 20 years, denies alcohol or illicit drug use [id number] Review of Systems - Review of Systems Review of Systems: A 12-point review of systems negative except for as above Past Patient History - Past Medical History & Family History Past Medical History?: Yes - Past Social History Smoking Status: Light Smoker < 10 Cigarettes Daily - CARDIAC Hx Cardiac Disorders: No - PULMONARY Hx Respiratory Disorders: No - NEUROLOGICAL Hx Neurological Disorder: No - HEENT Hx HEENT Problems: No - RENAL Hx Chronic Kidney Disease: No - ENDOCRINE/METABOLIC Hx Endocrine Disorders: Yes Hx Diabetes Mellitus Type 2: Yes (UNSURE WHEN DIAGNOSED, NO PRESCRPIT.) - HEMATOLOGICAL/ONCOLOGICAL Hx Blood Disorders: No - INTEGUMENTARY Hx Dermatological Problems: No - MUSCULOSKELETAL/RHEUMATOLOGICAL Hx Musculoskeletal Disorders: No Hx Falls: No - GASTROINTESTINAL Hx Gastrointestinal Disorders: No - GENITOURINARY/GYNECOLOGICAL Hx Genitourinary Disorders: No - PSYCHIATRIC Hx Substance Use: No - SURGICAL HISTORY Hx Surgeries: No - ANESTHESIA Hx Anesthesia: No Meds Allergies/Adverse Reactions: Allergies Allergy/AdvReac Type Severity Reaction Status Date / Time No Known Allergies Allergy Unverified 11/16/16 23:03 - Medications Medications: Current Medications Docusate Sodium (Colace) 100 mg PO DAILY [facility] Last Admin: 11/18/16 09:22 Dose: 100 mg Sodium Chloride (Sodium Chloride 0.9%) 1,000 mls @ 100 mls/hr IV .Q10H [facility] Last Admin: 11/18/16 05:17 Dose: 100 mls/hr Ceftriaxone Sodium (Rocephin Iv 1 Gm Duplex) 50 mls @ 50 mls/30 min IVPB DAILY [facility] Last Admin: 11/18/16 09:23 Dose: 50 mls/30 min Ondansetron HCl (Zofran Inj) 4 mg IVP Q6H PRN PRN Reason: Nausea/Vomiting Physical Exam - Constitutional Appears: Non-toxic, No Acute Distress - Head Exam Head Exam: ATRAUMATIC, NORMOCEPHALIC - Eye Exam Eye Exam: EOMI, PERRL Pupil Exam: PERRL. absent: Miosis, Mydriatic - ENT Exam ENT Exam: Mucous Membranes Moist, Normal Oropharynx - Neck Exam Neck exam: Positive for: Full Rom, Normal Inspection - Respiratory Exam Respiratory Exam: Clear to Auscultation Bilateral. absent: Rales, Rhonchi, Wheezes - Cardiovascular Exam Cardiovascular Exam: RRR, +S1, +S2. absent: Gallop, Rubs - GI/Abdominal Exam GI & Abdominal Exam: Normal Bowel Sounds, Soft. absent: Distended, Firm, Guarding, Organomegaly, Rebound, Rigid, Tenderness - Extremities Exam Extremities exam: Positive for: full ROM. Negative for: pedal edema - Neurological Exam Neurological exam: Alert - Psychiatric Exam Psychiatric exam: Normal Affect, Normal Mood - Skin Skin Exam: Dry, Intact, Normal Color, Warm Results - Vital Signs Recent Vital Signs: Last Vital Signs Temp 97.1 F L 11/18/16 16:00 Pulse 69 11/18/16 16:00 Resp 20 11/18/16 16:00 BP 101/67 11/18/16 16:00 Pulse Ox 99 11/18/16 16:00 - Labs Result Diagrams: 11/18/16 07:52 11/18/16 07:52 Labs: Laboratory Results - last 24 hr 11/17/16 11/17/16 11/17/16 13:29 19:15 21:47 WBC RBC Hgb Hct MCV MCH MCHC RDW Plt Count MPV Neut % (Auto) Lymph % (Auto) Quay % (Auto) Eos % (Auto) Baso % (Auto) Neut # Lymph # Quay # Eos # Baso # Sodium Potassium Chloride Carbon Dioxide Anion Gap BUN Creatinine Est GFR ( Amer) Est GFR (Non-Af Amer) POC Glucose (mg/dL) 130 H Random Glucose Calcium Phosphorus Magnesium Total Bilirubin AST ALT Alkaline Phosphatase Total Protein Albumin Globulin Albumin/Globulin Ratio Urine Opiates Screen Negative Urine Methadone Screen Negative Ur Barbiturates Screen Negative Ur Phencyclidine Scrn Negative Ur Amphetamines Screen Negative U Benzodiazepines Scrn Negative U Oth Cocaine Metabols Negative U Cannabinoids Screen Negative Hepatitis A IgM Ab Negative Hep Bs Antigen Negative Hep B Core IgM Ab Negative Hepatitis C Antibody Negative HIV 1&2 Antibody Screen Negative 11/18/16 11/18/16 11/18/16 06:17 07:52 11:49 WBC 2.6 L RBC 2.67 L Hgb 7.2 L Hct 22.0 L MCV 82.4 MCH 27.1 MCHC 32.8 L RDW 20.5 H Plt Count 76 L D MPV 10.6 Neut % (Auto) 50.0 Lymph % (Auto) 38.0 Quay % (Auto) 9.0 Eos % (Auto) 3.0 Baso % (Auto) 0.0 Neut # 1.3 L Lymph # 1.0 Quay # 0.2 Eos # 0.0 Baso # 0.0 Sodium 139 Potassium 4.3 Chloride 108 H Carbon Dioxide 19 L Anion Gap 16 BUN 10 Creatinine 0.6 L Est GFR ( Amer) > 60 Est GFR (Non-Af Amer) > 60 POC Glucose (mg/dL) 108 196 H Random Glucose 97 Calcium 7.5 L Phosphorus 3.5 Magnesium 1.9 Total Bilirubin 0.2 AST 68 H D ALT 67 H D Alkaline Phosphatase 83 Total Protein 5.1 L Albumin 2.3 L Globulin 2.8 Albumin/Globulin Ratio 0.8 L Urine Opiates Screen Urine Methadone Screen Ur Barbiturates Screen Ur Phencyclidine Scrn Ur Amphetamines Screen U Benzodiazepines Scrn U Oth Cocaine Metabols U Cannabinoids Screen Hepatitis A IgM Ab Hep Bs Antigen Hep B Core IgM Ab Hepatitis C Antibody HIV 1&2 Antibody Screen Assessment & Plan - Assessment and Plan (Free Text) Assessment: 51 year old female with no prior medical history presenting with weakness. CT A/ P without contrast showing infiltrative changes of pancreatic head with lymphadenopathy. Ultrasound showed 2.6x2.2x2.8cm left hepatic cyst. No prior EGD or colonoscopy. Plan: >pending CT Chest/Abdomen/pelvis with contrast >follow up results and renal function prior to likely need for CT pancreas protocol >Hematology managing- recommend bone marrow biopsy, patient to think and decide if to proceed >receiving 1 unit pRBC >will coordinate with Hematology timing for bowel prep for inpatient EGD/ colonoscopy evaluation after bone marrow biopsy <Albert Lockhart MD - Last Filed: 11/18/16 19:55> Meds - Medications Medications: Current Medications Docusate Sodium (Colace) 100 mg PO DAILY [facility] Last Admin: 11/18/16 09:22 Dose: 100 mg Sodium Chloride (Sodium Chloride 0.9%) 1,000 mls @ 100 mls/hr IV .Q10H [facility] Last Admin: 11/18/16 17:46 Dose: 100 mls/hr Ceftriaxone Sodium (Rocephin Iv 1 Gm Duplex) 50 mls @ 50 mls/30 min IVPB DAILY [facility] Last Admin: 11/18/16 09:23 Dose: 50 mls/30 min Ondansetron HCl (Zofran Inj) 4 mg IVP Q6H PRN PRN Reason: Nausea/Vomiting Results - Vital Signs Recent Vital Signs: Last Vital Signs Temp 97.0 F L 11/18/16 19:27 Pulse 71 11/18/16 19:27 Resp 20 11/18/16 19:27 BP 104/67 11/18/16 19:27 Pulse Ox 99 11/18/16 16:00 - Labs Result Diagrams: 11/18/16 07:52 11/18/16 07:52 Labs: Laboratory Results - last 24 hr 11/17/16 11/17/16 11/17/16 05:21 13:29 21:47 WBC RBC Hgb Hct MCV MCH MCHC RDW Plt Count MPV Neut % (Auto) Lymph % (Auto) Quay % (Auto) Eos % (Auto) Baso % (Auto) Neut # Lymph # Quay # Eos # Baso # Sodium Potassium Chloride Carbon Dioxide Anion Gap BUN Creatinine Est GFR ( Amer) Est GFR (Non-Af Amer) POC Glucose (mg/dL) 130 H Random Glucose Calcium Phosphorus Magnesium Total Bilirubin AST ALT Alkaline Phosphatase Total Protein Albumin Globulin Albumin/Globulin Ratio Hepatitis A IgM Ab Negative Hep Bs Antigen Negative Hep B Core IgM Ab Negative Hepatitis C Antibody Negative HIV 1&2 Antibody Screen Negative Blood Type A POSITIVE Antibody Screen Negative 11/18/16 11/18/16 11/18/16 06:17 07:52 11:49 WBC 2.6 L RBC 2.67 L Hgb 7.2 L Hct 22.0 L MCV 82.4 MCH 27.1 MCHC 32.8 L RDW 20.5 H Plt Count 76 L D MPV 10.6 Neut % (Auto) 50.0 Lymph % (Auto) 38.0 Quay % (Auto) 9.0 Eos % (Auto) 3.0 Baso % (Auto) 0.0 Neut # 1.3 L Lymph # 1.0 Quay # 0.2 Eos # 0.0 Baso # 0.0 Sodium 139 Potassium 4.3 Chloride 108 H Carbon Dioxide 19 L Anion Gap 16 BUN 10 Creatinine 0.6 L Est GFR ( Amer) > 60 Est GFR (Non-Af Amer) > 60 POC Glucose (mg/dL) 108 196 H Random Glucose 97 Calcium 7.5 L Phosphorus 3.5 Magnesium 1.9 Total Bilirubin 0.2 AST 68 H D ALT 67 H D Alkaline Phosphatase 83 Total Protein 5.1 L Albumin 2.3 L Globulin 2.8 Albumin/Globulin Ratio 0.8 L Hepatitis A IgM Ab Hep Bs Antigen Hep B Core IgM Ab Hepatitis C Antibody HIV 1&2 Antibody Screen Blood Type Antibody Screen 11/18/16 16:59 WBC RBC Hgb Hct MCV MCH MCHC RDW Plt Count MPV Neut % (Auto) Lymph % (Auto) Quay % (Auto) Eos % (Auto) Baso % (Auto) Neut # Lymph # Quay # Eos # Baso # Sodium Potassium Chloride Carbon Dioxide Anion Gap BUN Creatinine Est GFR ( Amer) Est GFR (Non-Af Amer) POC Glucose (mg/dL) 96 Random Glucose Calcium Phosphorus Magnesium Total Bilirubin AST ALT Alkaline Phosphatase Total Protein Albumin Globulin Albumin/Globulin Ratio Hepatitis A IgM Ab Hep Bs Antigen Hep B Core IgM Ab Hepatitis C Antibody HIV 1&2 Antibody Screen Blood Type Antibody Screen Attending/Attestation - Attestation I have personally seen and examined this patient.: Yes I have fully participated in the care of the patient.: Yes I have reviewed all pertinent clinical information: Yes Notes (Text): 11/18/16 19:53 Patient seen and examined with GI fellow on rounds this am. This is a 51 year old female with no prior medical history presenting with weakness. CT A/P without contrast showing infiltrative changes of pancreatic head with lymphadenopathy and 2.6 cm left hepatic cyst. Concern for pancytopenia. TV sonogram with fibroids. Pending CT chest/ abdomen/ pelvis with IV contrast. Will benefit from BM biopsy. Will coordinate and schedule EGD/ colonoscopy with hematology
[2016-11-19 04:59] LABS: HEMATOCRIT 24.9 % (35.0-45.0); HEMOGLOBIN 8.1 g/dL (11.7-15.5); RDW 21.9 % (11.0-15.0)
[2016-11-19] MEDS: Sodium Chloride 0.9% 1,000 ML IV SCH ×2 (05:11→08:35)
[2016-11-19 08:02] LABS: EOS # 0.1 K/uL (0.0-0.7); MONO # 0.5 K/uL (0.0-0.8)
[2016-11-19 08:14] LABS: EOS % 2.2 % (0.0-4.0); HEMATOCRIT 27.9 % (34.0-47.0); LYMPH # 1.4 K/uL (1.0-4.3); LYMPH % 41.6 % (20.0-40.0); MEAN CELL VOLUME 81.9 fL (81.0-99.0); MEAN CORPUSCULAR HEMOGLOBIN 27.5 pg (27.0-31.0); MEAN CORPUSCULAR HGB CONC 33.6 g/dL (33.0-37.0); MEAN PLATELET VOLUME 9.7 fL (7.2-11.7); MONO % 13.7 % (0.0-10.0); NRBC % 0.1 % (0.0-2.0); RED CELL DISTRIBUTION WIDTH 18.2 % (11.5-14.5); WHITE BLOOD COUNT 3.4 K/uL (4.8-10.8)
[2016-11-19 08:36] LABS: CHLORIDE 108 mmol/L (98-107)
[2016-11-19 08:37] LABS: POTASSIUM 4.3 mmol/L (3.6-5.2); SODIUM 142 mmol/L (132-148)
[2016-11-19 08:39] LABS: ALB/GLOB RATIO 0.9 (1.0-2.1); ALKALINE PHOSPHATASE 79 U/L (38-126); AST/SGOT 57 U/L (14-36); BILIRUBIN,TOTAL 0.5 mg/dL (0.2-1.3); BLOOD UREA NITROGEN 4 mg/dL (7-17); CARBON DIOXIDE 23 mmol/L (22-30); GFR AFRICAN-AMERICAN > 60; GLUCOSE,RANDOM 85 mg/dL (65-105); TOTAL PROTEIN 5.3 g/dL (6.3-8.3)
[2016-11-19 08:40] LABS: ALT/SGPT 64 U/L (9-52); CALCIUM 7.9 mg/dl (8.6-10.4); MAGNESIUM 1.7 mg/dL (1.6-2.3); PHOSPHOROUS 4.3 mg/dL (2.5-4.5)
[2016-11-19] MEDS: cefTRIAXone IV 1 gm in Dextros 50 ML IVPB SCH (09:11)
--- NOTE | 2016-11-19 09:36 | CP.PCM.PN ---
<Lea Lino - Last Filed: 11/19/16 09:33> Subjective - Date & Time of Evaluation Date of Evaluation: 11/19/16 Time of Evaluation: 09:34 - Subjective Subjective: Gastroenterology Fellow/PGY4 Progress Note Patient continues to feel weak. She admits to nausea today. Tolerating clear liquids without vomiting. Denies bowel movement. A 12-point review of systems negative except for as above. Objective - Vital Signs/Intake and Output Vital Signs (last 24 hours): Temp Pulse Resp BP Pulse Ox 98.1 F 71 20 110/72 98 11/19/16 07:20 11/19/16 08:01 11/19/16 07:20 11/19/16 07:20 11/19/16 07:20 Intake and Output: 11/19/16 11/19/16 06:59 18:59 Intake Total 2009 Output Total 650 Balance 1360 - Medications Medications: Current Medications Docusate Sodium (Colace) 100 mg PO DAILY [facility] Last Admin: 11/19/16 09:12 Dose: 100 mg Sodium Chloride (Sodium Chloride 0.9%) 1,000 mls @ 100 mls/hr IV .Q10H [facility] Last Admin: 11/19/16 08:35 Dose: 100 mls/hr Ceftriaxone Sodium (Rocephin Iv 1 Gm Duplex) 50 mls @ 50 mls/30 min IVPB DAILY [facility] Last Admin: 11/19/16 09:11 Dose: 50 mls/30 min Ondansetron HCl (Zofran Inj) 4 mg IVP Q6H PRN PRN Reason: Nausea/Vomiting Last Admin: 11/19/16 07:30 Dose: 4 mg - Labs Labs: 11/19/16 07:49 11/19/16 07:49 PT 16.0 SECONDS (9.7-12.2) H 11/16/16 23:44 INR 1.4 11/16/16 23:44 APTT 29 SECONDS (21-34) 11/16/16 23:44 - Constitutional Appears: Non-toxic, No Acute Distress - Head Exam Head Exam: ATRAUMATIC, NORMOCEPHALIC - Eye Exam Eye Exam: EOMI, PERRL Pupil Exam: PERRL. absent: Miosis, Mydriatic - ENT Exam ENT Exam: Mucous Membranes Moist, Normal Oropharynx - Neck Exam Neck Exam: Full ROM, Normal Inspection - Respiratory Exam Respiratory Exam: Clear to Ausculation Bilateral. absent: Rales, Rhonchi, Wheezes, Stridor - Cardiovascular Exam Cardiovascular Exam: RRR, +S1, +S2. absent: Gallop, Rubs - GI/Abdominal Exam GI & Abdominal Exam: Soft, Tenderness, Normal Bowel Sounds. absent: Distended, Firm, Guarding, Rigid, Organomegaly, Rebound Additional comments: LLQ tenderness to palpation - Neurological Exam Neurological Exam: Alert, Awake - Psychiatric Exam Psychiatric exam: Normal Affect, Normal Mood - Skin Skin Exam: Dry, Intact, Normal Color, Warm Assessment and Plan - Assessment and Plan (Free Text) Assessment: 51 year old female with no prior medical history presenting with weakness. CT A/ P without contrast showing infiltrative changes of pancreatic head with lymphadenopathy. Ultrasound showed 2.6x2.2x2.8cm left hepatic cyst. No prior EGD or colonoscopy. Plan: >CT Chest/Abdomen/pelvis with contrast shows hepatic lesions concerning for metastatic disease and fibroids >discussed with Hematology- Dr. Chavarria, plan for bone marrow biopsy today >received 1 unit pRBC yesterday >GoLytely bowel prep today >clear liquid diet, NPO after midnight >EGD and colonoscopy Friday for further evaluation of mass lesion with underlying pancytopenia and concern for hepatic metastases <Darren Jasmine - Last Filed: 11/19/16 10:50> Objective - Vital Signs/Intake and Output Vital Signs (last 24 hours): Temp Pulse Resp BP Pulse Ox 98.1 F 71 20 110/72 98 11/19/16 07:20 11/19/16 08:01 11/19/16 07:20 11/19/16 07:20 11/19/16 07:20 Intake and Output: 11/19/16 11/19/16 06:59 18:59 Intake Total 2009 Output Total 650 Balance 1360 - Medications Medications: Current Medications Bisacodyl (Dulcolax) 5 mg PO ONCE ONE Stop: 11/19/16 19:01 Docusate Sodium (Colace) 100 mg PO DAILY [facility] Last Admin: 11/19/16 09:12 Dose: 100 mg Sodium Chloride (Sodium Chloride 0.9%) 1,000 mls @ 100 mls/hr IV .Q10H [facility] Last Admin: 11/19/16 08:35 Dose: 100 mls/hr Ceftriaxone Sodium (Rocephin Iv 1 Gm Duplex) 50 mls @ 50 mls/30 min IVPB DAILY [facility] Last Admin: 11/19/16 09:11 Dose: 50 mls/30 min Ondansetron HCl (Zofran Inj) 4 mg IVP Q6H PRN PRN Reason: Nausea/Vomiting Last Admin: 11/19/16 07:30 Dose: 4 mg Polyethylene Glycol/Electrolytes (Golytely) 4,000 ml PO ONCE ONE Stop: 11/19/16 14:01 - Labs Labs: 11/19/16 07:49 11/19/16 07:49 PT 16.0 SECONDS (9.7-12.2) H 11/16/16 23:44 INR 1.4 11/16/16 23:44 APTT 29 SECONDS (21-34) 11/16/16 23:44 Attending/Attestation - Attestation I have personally seen and examined this patient.: Yes I have fully participated in the care of the patient.: Yes I have reviewed all pertinent clinical information, including history, physical exam and plan: Yes Notes (Text): 11/19/16 10:46 I have seen and examined patient with GI fellow. No acute events overnight. She continues to endorse fatigue though denies nausea, vomiting, diarrhea, fever /chills. Tolerating liquid diet without difficulty. Anemia, pancytopenia Weakness Unexplained weight loss CT imaging reviewed by me showing hypodense liver lesions concerning for metastatic disease - H/H stable s/p PRBC transfusion, continue to monitor - Hematology planning bone marrow biopsy today for further evaluation, follow up results - Given appearance of liver lesions along with unexplained weight loss, would plan for EGD/colonoscopy evaluation tomorrow to rule out malignant lesion. Clear liquid diet and bowel preparation today. NPO after midnight.
--- NOTE | 2016-11-19 13:18 | CP.PCM.PN ---
<Jennifer Glass - Last Filed: 11/19/16 15:10> Subjective - Date & Time of Evaluation Date of Evaluation: 11/19/16 Time of Evaluation: 09:45 - Subjective Subjective: Internal Medicine Progress note for Dr. Jones- Jennifer Glass, PGY-1 Pt S & E at bedside. Pt continues to report weakness/fatigue, has nausea, poor appetite. Is sleeping ok, urinating ok. Reports her scalp is a little itchy. Denies emesis, F/C, SOB, CP, VIEIRA, abdominal pain. Objective - Vital Signs/Intake and Output Vital Signs (last 24 hours): Temp Pulse Resp BP Pulse Ox 98.1 F 83 20 110/72 99 11/19/16 07:20 11/19/16 12:30 11/19/16 07:20 11/19/16 07:20 11/19/16 12:30 Intake and Output: 11/19/16 11/19/16 06:59 18:59 Intake Total 2010 Output Total 650 Balance 1360 - Medications Medications: Current Medications Bisacodyl (Dulcolax) 5 mg PO ONCE ONE Stop: 11/19/16 19:01 Docusate Sodium (Colace) 100 mg PO DAILY [facility] Last Admin: 11/19/16 09:12 Dose: 100 mg Sodium Chloride (Sodium Chloride 0.9%) 1,000 mls @ 100 mls/hr IV .Q10H [facility] Last Admin: 11/19/16 08:35 Dose: 100 mls/hr Ceftriaxone Sodium (Rocephin Iv 1 Gm Duplex) 50 mls @ 50 mls/30 min IVPB DAILY [facility] Last Admin: 11/19/16 09:11 Dose: 50 mls/30 min Ondansetron HCl (Zofran Inj) 4 mg IVP Q6H PRN PRN Reason: Nausea/Vomiting Last Admin: 11/19/16 07:30 Dose: 4 mg Polyethylene Glycol/Electrolytes (Golytely) 4,000 ml PO ONCE ONE Stop: 11/19/16 14:01 - Labs Labs: 11/19/16 07:49 11/19/16 07:49 PT 16.0 SECONDS (9.7-12.2) H 11/16/16 23:44 INR 1.4 11/16/16 23:44 APTT 29 SECONDS (21-34) 11/16/16 23:44 - Constitutional Appears: Non-toxic, No Acute Distress, Other (appears tired) - Head Exam Head Exam: ATRAUMATIC, NORMAL INSPECTION, NORMOCEPHALIC - Eye Exam Eye Exam: EOMI, Normal appearance, PERRL Pupil Exam: NORMAL ACCOMODATION, PERRL - ENT Exam ENT Exam: Mucous Membranes Moist, Normal Exam - Neck Exam Neck Exam: Full ROM, Normal Inspection - Respiratory Exam Respiratory Exam: Clear to Ausculation Bilateral, NORMAL BREATHING PATTERN. absent: Rales, Rhonchi, Wheezes, Stridor - Cardiovascular Exam Cardiovascular Exam: REGULAR RHYTHM, +S1, +S2 - GI/Abdominal Exam GI & Abdominal Exam: Soft, Normal Bowel Sounds. absent: Distended, Firm, Guarding, Rigid, Tenderness - Extremities Exam Extremities Exam: Full ROM, Normal Inspection - Neurological Exam Neurological Exam: Alert, Awake, CN II-XII Intact, Oriented x3 - Psychiatric Exam Psychiatric exam: Normal Affect, Normal Mood - Skin Skin Exam: Dry, Intact, Normal Color, Warm Assessment and Plan - Assessment and Plan (Free Text) Assessment: Weakness Fall precautions CT brain neg for intracranial bleed UDS neg Sepsis WBC 2.6 from 2.9 Afebrile over last 24H Blood cxr neg x 248H Urine cx neg Cont Rocephin 1gm IV daily Abdominal pain U/A neg for leukocyte esterase, ketones, glucose, or nitrates, 2+ blood Morphine Colace Zofran CT ab w/o cont w/findings of pancreatic head poorly delineated -appears slightly increased in size w/infiltration changes in adj peripancreatic fat & infiltration also noted along most a good portion of the retroperitoneum. Also appears to be large retroperitoneal lymph nodes. Findings could rep pancreatitis - rec serum lipase, amylase. Malignant adenopathy not excluded; R/O lymphoma and/or leukemia. R/O retroperitoneal fibrosis. Enlarged bulky uterus likely due to uterine fibroids however nonemergent pelvic U/S rec Pelvis U/S + for uterine fibroids Ab U/S - Small hepatic cyst left lobe liver. No other abnormalities CT ab/pelvis w/Cont- Numerous hepatic hypodense lesions compatible with metastatic disease. Multiple retroperitoneal lymph nodes with retroperitoneal fat infiltration; correlate clinically for a primary malignancy. GI recs- EGD/Colonoscopy 11/20, CLD until MN, then NPO. Bowel prep today. Pancytopenia WBC 3.4 from 2.6 Hgb 9.4 from 7.2 FOB pos for blood Plts 118 from 76 Procalcitonin 0.57 CRP >[address] 0[address]4 LDH 722 HIV neg Monitor for bleeding Heme recs- Bone marrow bx - planned for today GI/DVT ppx SCDs Contraindications for VTE 2/2 thrombocytopenia Holding GI ppx at this time, avoiding agents that cause thrombocytopenia Dispo For EGD/Colonoscopy 11/20 w/GI Bone marrow bx as per Heme/onc OOB to chair with assistance PT/OT DW attending <Deny Jones - Last Filed: 11/19/16 16:00> Objective - Vital Signs/Intake and Output Vital Signs (last 24 hours): Temp Pulse Resp BP Pulse Ox 98.1 F 83 20 110/72 99 11/19/16 07:20 11/19/16 14:23 11/19/16 07:20 11/19/16 07:20 11/19/16 12:30 Intake and Output: 11/19/16 11/19/16 06:59 18:59 Intake Total 2009 Output Total 650 Balance 1360 - Medications Medications: Current Medications Bisacodyl (Dulcolax) 5 mg PO ONCE ONE Stop: 11/19/16 19:01 Docusate Sodium (Colace) 100 mg PO DAILY [facility] Last Admin: 11/19/16 09:12 Dose: 100 mg Sodium Chloride (Sodium Chloride 0.9%) 1,000 mls @ 100 mls/hr IV .Q10H [facility] Last Admin: 11/19/16 08:35 Dose: 100 mls/hr Ceftriaxone Sodium (Rocephin Iv 1 Gm Duplex) 50 mls @ 50 mls/30 min IVPB DAILY [facility] Last Admin: 11/19/16 09:11 Dose: 50 mls/30 min Ondansetron HCl (Zofran Inj) 4 mg IVP Q6H PRN PRN Reason: Nausea/Vomiting Last Admin: 11/19/16 07:30 Dose: 4 mg - Labs Labs: 11/19/16 07:49 11/19/16 07:49 PT 16.0 SECONDS (9.7-12.2) H 11/16/16 23:44 INR 1.4 11/16/16 23:44 APTT 29 SECONDS (21-34) 11/16/16 23:44 Attending/Attestation - Attestation I have personally seen and examined this patient.: Yes I have fully participated in the care of the patient.: Yes I have reviewed all pertinent clinical information, including history, physical exam and plan: Yes Notes (Text): Medical Attending: Patient was seen and examined by me. Agree with the above note by the resident. The patient The patient had family members present today at bedside. We had translation service with us as well. We explained to the patient the need for further testing since the CT scan of the abd and pelvis was very concerning for potential malignancy - this is probably why she has pancytopenia. She had a blood transfusion yesterday as well. We also encouraged the patient to be out of bed as much as possible as well. thank you Deny Jones
[2016-11-19] MEDS ORDERED: Peg-Electrolyte Oral Soln 4L (Golytely) PO ONE (14:00)
[2016-11-19 15:01] LABS: HEMOGLOBIN F <1.0 Percent (<2.0)
[2016-11-19] MEDS ORDERED: Bisacodyl 5mg EC Tab PO ONE (19:00)
--- NOTE | 2016-11-20 02:31 | CP.PCM.PN ---
Subjective - Date & Time of Evaluation Date of Evaluation: 11/19/16 Time of Evaluation: 15:35 - Subjective Subjective: Feeling better Objective - Vital Signs/Intake and Output Vital Signs (last 24 hours): Temp Pulse Resp BP Pulse Ox 97.2 F L 64 20 120/80 99 11/19/16 23:50 11/19/16 23:50 11/19/16 23:50 11/19/16 23:50 11/19/16 23:50 Intake and Output: 11/19/16 11/20/16 18:59 06:59 Intake Total 4800 Output Total 800 Balance 4000 - Medications Medications: Current Medications Docusate Sodium (Colace) 100 mg PO DAILY [facility] Last Admin: 11/19/16 09:12 Dose: 100 mg Sodium Chloride (Sodium Chloride 0.9%) 1,000 mls @ 100 mls/hr IV .Q10H [facility] Last Admin: 11/19/16 08:35 Dose: 100 mls/hr Ceftriaxone Sodium (Rocephin Iv 1 Gm Duplex) 50 mls @ 50 mls/30 min IVPB DAILY [facility] Last Admin: 11/19/16 09:11 Dose: 50 mls/30 min Ondansetron HCl (Zofran Inj) 4 mg IVP Q6H PRN PRN Reason: Nausea/Vomiting Last Admin: 11/19/16 07:30 Dose: 4 mg - Labs Labs: 11/19/16 07:49 11/19/16 07:49 PT 16.0 SECONDS (9.7-12.2) H 11/16/16 23:44 INR 1.4 11/16/16 23:44 APTT 29 SECONDS (21-34) 11/16/16 23:44 - Head Exam Head Exam: ATRAUMATIC - Eye Exam Eye Exam: Normal appearance - ENT Exam ENT Exam: Mucous Membranes Dry - Respiratory Exam Respiratory Exam: NORMAL BREATHING PATTERN - Cardiovascular Exam Cardiovascular Exam: +S1, +S2 - GI/Abdominal Exam GI & Abdominal Exam: Normal Bowel Sounds - Extremities Exam Extremities Exam: Normal Inspection Assessment and Plan (1) Pancytopenia Assessment & Plan: counts improving - will hold off on bone marrow evaluation s/p PRBC transfusion; anemia of chronic disease plt improved Status: Acute (2) Pancreatic abnormality Status: Acute (3) Coagulopathy Status: Acute
[2016-11-20 06:27] LABS: BASO % 0.5 % (0.0-2.0); EOS # 0.1 K/uL (0.0-0.7); EOS % 2.6 % (0.0-4.0); HEMATOCRIT 26.4 % (34.0-47.0); LYMPH # 1.6 K/uL (1.0-4.3); LYMPH % 45.3 % (20.0-40.0); MEAN CELL VOLUME 82.3 fL (81.0-99.0); MEAN CORPUSCULAR HEMOGLOBIN 27.6 pg (27.0-31.0); MEAN CORPUSCULAR HGB CONC 33.6 g/dL (33.0-37.0); MEAN PLATELET VOLUME 8.4 fL (7.2-11.7); MONO # 0.4 K/uL (0.0-0.8); MONO % 11.4 % (0.0-10.0); NRBC % 0.2 % (0.0-2.0); RED CELL DISTRIBUTION WIDTH 18.5 % (11.5-14.5); WHITE BLOOD COUNT 3.6 K/uL (4.8-10.8)
[2016-11-20 06:32] LABS: CHLORIDE 111 mmol/L (98-107); POTASSIUM 3.6 mmol/L (3.6-5.2); SODIUM 144 mmol/L (132-148)
[2016-11-20 06:34] LABS: GFR AFRICAN-AMERICAN > 60
[2016-11-20 06:35] LABS: ALB/GLOB RATIO 0.9 (1.0-2.1); ALKALINE PHOSPHATASE 81 U/L (38-126); ALT/SGPT 61 U/L (9-52); AST/SGOT 75 U/L (14-36); BILIRUBIN,TOTAL 0.3 mg/dL (0.2-1.3); CARBON DIOXIDE 21 mmol/L (22-30); GLUCOSE,RANDOM 91 mg/dL (65-105); INR 1.3; PHOSPHOROUS 3.6 mg/dL (2.5-4.5); TOTAL PROTEIN 5.1 g/dL (6.3-8.3)
[2016-11-20 06:36] LABS: CALCIUM 7.6 mg/dl (8.6-10.4); MAGNESIUM 1.6 mg/dL (1.6-2.3)
[2016-11-20 06:41] LABS: BLOOD UREA NITROGEN < 2 mg/dL (7-17)
--- NOTE | 2016-11-20 08:07 | CARD ---
APPROVED REPORT EKG Measurement Heart [id number] <Conclusion> Normal sinus rhythm Normal ECG
--- NOTE | 2016-11-20 09:37 | CP.PCM.PN ---
<Jennifer Glass - Last Filed: 11/20/16 11:45> Subjective - Date & Time of Evaluation Date of Evaluation: 11/20/16 Time of Evaluation: 07:00 - Subjective Subjective: Internal Medicine Progress note for Dr. Jones- Jennifer Glass, PGY-1 Pt S & E at bedside. Pt w/diarrhea today- has been doing bowel prep for colonoscopy. Admits to nausea, tolerating liquid bowel prep, no appetite, a little emesis. Denies F/C , SOB, CP, abdominal pain, headache. Sleeping ok. Objective - Vital Signs/Intake and Output Vital Signs (last 24 hours): Temp Pulse Resp BP Pulse Ox 97.1 F L 68 18 109/67 96 11/20/16 07:52 11/20/16 07:52 11/20/16 07:52 11/20/16 07:52 11/20/16 07:52 Intake and Output: 11/20/16 11/20/16 06:59 18:59 Intake Total 5600 Output Total 800 Balance 4800 - Medications Medications: Current Medications Docusate Sodium (Colace) 100 mg PO DAILY [facility] Last Admin: 11/19/16 09:12 Dose: 100 mg Sodium Chloride (Sodium Chloride 0.9%) 1,000 mls @ 100 mls/hr IV .Q10H [facility] Last Admin: 11/19/16 08:35 Dose: 100 mls/hr Ceftriaxone Sodium (Rocephin Iv 1 Gm Duplex) 50 mls @ 50 mls/30 min IVPB DAILY [facility] Last Admin: 11/19/16 09:11 Dose: 50 mls/30 min Ondansetron HCl (Zofran Inj) 4 mg IVP Q6H PRN PRN Reason: Nausea/Vomiting Last Admin: 11/20/16 05:16 Dose: 4 mg - Labs Labs: 11/20/16 06:00 11/20/16 06:00 PT 14.1 SECONDS (9.7-12.2) H 11/20/16 06:00 INR 1.3 11/20/16 06:00 APTT 29 SECONDS (21-34) 11/16/16 23:44 - Constitutional Appears: Non-toxic, No Acute Distress, Other (Tired appearing) - Head Exam Head Exam: ATRAUMATIC, NORMAL INSPECTION, NORMOCEPHALIC - Eye Exam Eye Exam: EOMI, Normal appearance, PERRL Pupil Exam: NORMAL ACCOMODATION, PERRL - ENT Exam ENT Exam: Mucous Membranes Moist, Normal Exam - Neck Exam Neck Exam: Full ROM, Normal Inspection - Respiratory Exam Respiratory Exam: Clear to Ausculation Bilateral, NORMAL BREATHING PATTERN. absent: Rales, Rhonchi, Wheezes - Cardiovascular Exam Cardiovascular Exam: REGULAR RHYTHM, +S1, +S2 - GI/Abdominal Exam GI & Abdominal Exam: Soft, Normal Bowel Sounds. absent: Distended, Firm, Guarding, Rigid, Tenderness - Extremities Exam Extremities Exam: Normal Inspection. absent: Pedal Edema - Neurological Exam Neurological Exam: Alert, Awake, Oriented x3 - Psychiatric Exam Psychiatric exam: Normal Affect, Normal Mood - Skin Skin Exam: Dry, Intact, Normal Color, Warm Assessment and Plan - Assessment and Plan (Free Text) Assessment: Weakness Fall precautions CT brain neg for intracranial bleed UDS neg Sepsis WBC 3.6 from 2.6 Afebrile over last 24H Blood cxr neg x 3D Urine cx neg Cont Rocephin 1gm IV daily Abdominal pain U/A neg for leukocyte esterase, ketones, glucose, or nitrates, 2+ blood Morphine Colace Zofran PRN CT ab w/o cont w/findings of pancreatic head poorly delineated -appears slightly increased in size w/infiltration changes in adj peripancreatic fat & infiltration also noted along most a good portion of the retroperitoneum. Also appears to be large retroperitoneal lymph nodes. Findings could rep pancreatitis - rec serum lipase, amylase. Malignant adenopathy not excluded; R/O lymphoma and/or leukemia. R/O retroperitoneal fibrosis. Enlarged bulky uterus likely due to uterine fibroids however nonemergent pelvic U/S rec Pelvis U/S + for uterine fibroids Ab U/S - Small hepatic cyst left lobe liver. No other abnormalities CT ab/pelvis w/Cont- Numerous hepatic hypodense lesions compatible with metastatic disease. Multiple retroperitoneal lymph nodes with retroperitoneal fat infiltration; correlate clinically for a primary malignancy. GI recs- EGD/Colonoscopy 11/20 Pancytopenia WBC 3.6 from 3.4- improving Hgb 8.9 from 9.4 FOB pos for blood Plts 154 from 118- improving Procalcitonin 0.57 CRP >[address] 0[address]4 Haptoglobin 496 LDH 722 HIV neg Monitor for bleeding Heme recs- Holding off on bone marrow bx at this time GI/DVT ppx SCDs Contraindications for VTE 2/2 thrombocytopenia Holding GI ppx at this time, avoiding agents that cause thrombocytopenia Dispo FU EGD/Colonoscopy 11/20 w/GI Recs as per Heme/onc OOB to chair with assistance PT/OT DW attending <Deny Jones - Last Filed: 11/20/16 15:58> Objective - Vital Signs/Intake and Output Vital Signs (last 24 hours): Temp Pulse Resp BP Pulse Ox 96.8 F L 57 L 18 131/73 100 11/20/16 14:10 11/20/16 14:10 11/20/16 14:10 11/20/16 14:10 11/20/16 14:10 Intake and Output: 11/20/16 11/20/16 06:59 18:59 Intake Total 5600 400 Output Total 800 Balance 4800 400 - Medications Medications: Current Medications Docusate Sodium (Colace) 100 mg PO DAILY [facility] Last Admin: 11/20/16 09:50 Dose: Not Given Sodium Chloride (Sodium Chloride 0.9%) 1,000 mls @ 100 mls/hr IV .Q10H [facility] Last Admin: 11/20/16 10:00 Dose: Not Given Ceftriaxone Sodium (Rocephin Iv 1 Gm Duplex) 50 mls @ 50 mls/30 min IVPB DAILY [facility] Last Admin: 11/20/16 09:54 Dose: 50 mls/30 min Lactated Ringer's (Lactated Ringer's) 1,000 mls @ 100 mls/hr IV .Q10H [facility] Ondansetron HCl (Zofran Inj) 4 mg IVP Q6H PRN PRN Reason: Nausea/Vomiting Last Admin: 11/20/16 05:16 Dose: 4 mg - Labs Labs: 11/20/16 06:00 11/20/16 06:00 PT 14.1 SECONDS (9.7-12.2) H 11/20/16 06:00 INR 1.3 11/20/16 06:00 APTT 29 SECONDS (21-34) 11/16/16 23:44 Attending/Attestation - Attestation I have personally seen and examined this patient.: Yes I have fully participated in the care of the patient.: Yes I have reviewed all pertinent clinical information, including history, physical exam and plan: Yes Notes (Text): 11/20/16 15:56 Medical Attending: Patient was seen and examined by me. Agree with the above note by the resident The patient looked and felt very depressed. When we saw her in the morning was waiting for colonscopy/EGD. Per review of her labwork she had a recent PRBCs and Hgb was better, platelets were higher as well thank you Deny Jones
[2016-11-20] MEDS: Sodium Chloride 0.9% 1,000 ML IV SCH ×3 (09:53→21:00)
[2016-11-20] MEDS: cefTRIAXone IV 1 gm in Dextros 50 ML IVPB SCH (09:54)
[2016-11-20] MEDS ORDERED: Propofol 10 mg/ml Inj (20 ML) ONE ×2 (12:56→12:57)
[2016-11-20] MEDS ORDERED: Lactated Ringer's 1,000 ML IV SCH (13:15)
--- NOTE | 2016-11-20 13:44 | CP.PCM.PN ---
Subjective - Date & Time of Evaluation Date of Evaluation: 11/20/16 Time of Evaluation: 13:42 - Subjective Subjective: Patient s/p EGD and colonoscopy today showing 2 descending colon polyps, gastritis, duodenitis. Objective - Vital Signs/Intake and Output Vital Signs (last 24 hours): Temp Pulse Resp BP Pulse Ox 97.1 F L 68 18 125/76 99 11/20/16 12:57 11/20/16 12:57 11/20/16 12:57 11/20/16 12:57 11/20/16 12:57 Intake and Output: 11/20/16 11/20/16 06:59 18:59 Intake Total 5600 350 Output Total 800 Balance 4800 350 - Medications Medications: Current Medications Docusate Sodium (Colace) 100 mg PO DAILY [facility] Last Admin: 11/20/16 09:50 Dose: Not Given Sodium Chloride (Sodium Chloride 0.9%) 1,000 mls @ 100 mls/hr IV .Q10H [facility] Last Admin: 11/20/16 09:53 Dose: 100 mls/hr Ceftriaxone Sodium (Rocephin Iv 1 Gm Duplex) 50 mls @ 50 mls/30 min IVPB DAILY [facility] Last Admin: 11/20/16 09:54 Dose: 50 mls/30 min Lactated Ringer's (Lactated Ringer's) 1,000 mls @ 100 mls/hr IV .Q10H [facility] Ondansetron HCl (Zofran Inj) 4 mg IVP Q6H PRN PRN Reason: Nausea/Vomiting Last Admin: 11/20/16 05:16 Dose: 4 mg - Labs Labs: 11/20/16 06:00 11/20/16 06:00 PT 14.1 SECONDS (9.7-12.2) H 11/20/16 06:00 INR 1.3 11/20/16 06:00 APTT 29 SECONDS (21-34) 11/16/16 23:44 Assessment and Plan - Assessment and Plan (Free Text) Assessment: Iron deficiency anemia Weakness, unexplained weight loss CT imaging showing liver lesions concerning for metastatic disease s/p EGD and colonoscopy today showing no stigmata of bleeding or worrisome lesions Plan: - Advance diet as tolerated - Follow up EGD/colonoscopy biopsy results - Further workup as per oncology team - No ongoing GI issues, will sign off case. Please reconsult as necessary, thank you.
[2016-11-21] MEDS: Sodium Chloride 0.9% 1,000 ML IV SCH (06:25)
[2016-11-21 07:27] LABS: BASO % 0.4 % (0.0-2.0); EOS # 0.1 K/uL (0.0-0.7); EOS % 2.8 % (0.0-4.0); LYMPH # 1.3 K/uL (1.0-4.3); LYMPH % 35.1 % (20.0-40.0); MEAN CELL VOLUME 82.9 fL (81.0-99.0); MEAN CORPUSCULAR HEMOGLOBIN 27.6 pg (27.0-31.0); MEAN CORPUSCULAR HGB CONC 33.3 g/dL (33.0-37.0); MONO # 0.4 K/uL (0.0-0.8); MONO % 10.3 % (0.0-10.0); NRBC % 0.2 % (0.0-2.0); RED CELL DISTRIBUTION WIDTH 18.9 % (11.5-14.5); WHITE BLOOD COUNT 3.8 K/uL (4.8-10.8)
[2016-11-21 07:41] LABS: CHLORIDE 106 mmol/L (98-107); SODIUM 141 mmol/L (132-148)
[2016-11-21 07:43] LABS: ALB/GLOB RATIO 0.9 (1.0-2.1); ALKALINE PHOSPHATASE 90 U/L (38-126); ALT/SGPT 68 U/L (9-52); AST/SGOT 84 U/L (14-36); BILIRUBIN,TOTAL 0.3 mg/dL (0.2-1.3); BLOOD UREA NITROGEN 4 mg/dL (7-17); CARBON DIOXIDE 26 mmol/L (22-30); GFR AFRICAN-AMERICAN > 60; TOTAL PROTEIN 4.9 g/dL (6.3-8.3)
[2016-11-21 07:44] LABS: CALCIUM 7.8 mg/dl (8.6-10.4); GLUCOSE,RANDOM 86 mg/dL (65-105); MAGNESIUM 1.6 mg/dL (1.6-2.3); PHOSPHOROUS 3.4 mg/dL (2.5-4.5)
[2016-11-21 08:31] VITALS: BP 115/72; PULSE 59; RESP 18; TEMP 97.4; O2SAT 98
--- NOTE | 2016-11-21 08:43 | CP.PCM.PN ---
Subjective - Date & Time of Evaluation Date of Evaluation: 11/21/16 Time of Evaluation: 07:30 - Subjective Subjective: Internal Medicine Progress note for Dr. Damari Glass, PGY-1 Pt S & E at bedside Pt resting comfortably in bed at time of evaluation. Denies N/V/F/C, SOB, CP, Ab pain, no longer having diarrhea. No complaints. Objective - Vital Signs/Intake and Output Vital Signs (last 24 hours): Temp Pulse Resp BP Pulse Ox 97.4 F L 59 L 18 115/72 98 11/21/16 08:30 11/21/16 08:30 11/21/16 08:30 11/21/16 08:30 11/21/16 08:30 Intake and Output: 11/21/16 11/21/16 06:59 18:59 Intake Total 1840 Output Total 600 Balance 1240 - Medications Medications: Current Medications Docusate Sodium (Colace) 100 mg PO DAILY [facility] Last Admin: 11/20/16 09:50 Dose: Not Given Sodium Chloride (Sodium Chloride 0.9%) 1,000 mls @ 100 mls/hr IV .Q10H [facility] Last Admin: 11/21/16 06:25 Dose: Not Given Ceftriaxone Sodium (Rocephin Iv 1 Gm Duplex) 50 mls @ 50 mls/30 min IVPB DAILY [facility] Last Admin: 11/20/16 09:54 Dose: 50 mls/30 min Lactated Ringer's (Lactated Ringer's) 1,000 mls @ 100 mls/hr IV .Q10H [facility] Last Admin: 11/21/16 00:18 Dose: 100 mls/hr Ondansetron HCl (Zofran Inj) 4 mg IVP Q6H PRN PRN Reason: Nausea/Vomiting Last Admin: 11/20/16 05:16 Dose: 4 mg - Labs Labs: 11/21/16 07:09 11/21/16 07:09 PT 14.1 SECONDS (9.7-12.2) H 11/20/16 06:00 INR 1.3 11/20/16 06:00 APTT 29 SECONDS (21-34) 11/16/16 23:44 - Constitutional Appears: Non-toxic, No Acute Distress, Other (Tired appearing) - Head Exam Head Exam: ATRAUMATIC, NORMAL INSPECTION, NORMOCEPHALIC - Eye Exam Eye Exam: EOMI, Normal appearance, PERRL Pupil Exam: NORMAL ACCOMODATION, PERRL - ENT Exam ENT Exam: Mucous Membranes Moist, Normal Exam - Neck Exam Neck Exam: Full ROM, Normal Inspection - Respiratory Exam Respiratory Exam: Clear to Ausculation Bilateral, NORMAL BREATHING PATTERN. absent: Rales, Rhonchi, Wheezes - Cardiovascular Exam Cardiovascular Exam: REGULAR RHYTHM, +S1, +S2 - GI/Abdominal Exam GI & Abdominal Exam: Soft, Normal Bowel Sounds. absent: Tenderness - Extremities Exam Extremities Exam: Full ROM, Normal Inspection - Neurological Exam Neurological Exam: Alert, Awake - Psychiatric Exam Psychiatric exam: Normal Affect, Normal Mood - Skin Skin Exam: Dry, Intact, Normal Color, Warm Assessment and Plan - Assessment and Plan (Free Text) Assessment: Weakness Fall precautions CT brain neg for intracranial bleed UDS neg Sepsis - resolving WBC 3.6 from 2.6 Afebrile over last 24H Blood cxr neg x 3D Urine cx neg Cont Rocephin 1gm IV daily Abdominal pain U/A neg for leukocyte esterase, ketones, glucose, or nitrates, 2+ blood Morphine Colace Zofran PRN CT ab w/o cont w/findings of pancreatic head poorly delineated -appears slightly increased in size w/infiltration changes in adj peripancreatic fat & infiltration also noted along most a good portion of the retroperitoneum. Also appears to be large retroperitoneal lymph nodes. Findings could rep pancreatitis - rec serum lipase, amylase. Malignant adenopathy not excluded; R/O lymphoma and/or leukemia. R/O retroperitoneal fibrosis. Enlarged bulky uterus likely due to uterine fibroids however nonemergent pelvic U/S rec Pelvis U/S + for uterine fibroids Ab U/S - Small hepatic cyst left lobe liver. No other abnormalities CT ab/pelvis w/Cont- Numerous hepatic hypodense lesions compatible with metastatic disease. Multiple retroperitoneal lymph nodes with retroperitoneal fat infiltration; correlate clinically for a primary malignancy. Colonoscopy w/findings of 2 descending colon polyps - awaiting path, internal hemorrhoids EG w/findings of gastritis, duodenitis, gastric ulcer GI - signed off Pancytopenia WBC 3.8 from 3.6- improving Hgb 8.6 from 8.9 FOB pos for blood Plts 203 from 154- improving Procalcitonin 0.57 CRP >[address] 0[address]4 Haptoglobin 496 LDH 722 HIV neg Monitor for bleeding Heme recs- Holding off on bone marrow bx at this time GI/DVT ppx SCDs Contraindications for VTE 2/2 thrombocytopenia Holding GI ppx at this time, avoiding agents that cause thrombocytopenia Dispo Recs as per Heme/onc OOB to chair with assistance PT/OT DW attending
[2016-11-21] MEDS: cefTRIAXone IV 1 gm in Dextros 50 ML IVPB SCH (09:47)
--- NOTE | 2016-11-21 12:45 | CP.PCM.DIS ---
<Maria LuisaJennifer - Last Filed: 11/21/16 12:43> Provider - Provider Date of Admission: 11/17/16 02:31 Attending physician: Deny Jones DO Primary care physician: Krunal Consults: [facility]- [facility] Time Spent in preparation of Discharge (in minutes): 60 Hospital Course - Lab Results Lab Results: Micro Results 11/18/16 Unknown Urine,Clean Catch Urine Culture - Final No Growth (<1,000 CFU/ML) Most Recent Lab Values WBC 3.8 K/uL (4.8-10.8) L 11/21/16 07:09 RBC 3.13 Mil/uL (3.80-5.20) L 11/21/16 07:09 Hgb 8.6 g/dL (11.0-16.0) L 11/21/16 07:09 Hct 26.0 % (34.0-47.0) L 11/21/16 07:09 MCV 82.9 fL (81.0-99.0) 11/21/16 07:09 MCH 27.6 pg (27.0-31.0) 11/21/16 07:09 MCHC 33.3 g/dL (33.0-37.0) 11/21/16 07:09 RDW 18.9 % (11.5-14.5) H 11/21/16 07:09 Plt Count 203 K/uL (130-400) 11/21/16 07:09 MPV 8.0 fL (7.2-11.7) 11/21/16 07:09 Neut % (Auto) 51.4 % (50.0-75.0) 11/21/16 07:09 Lymph % (Auto) 35.1 % (20.0-40.0) 11/21/16 07:09 Pender % (Auto) 10.3 % (0.0-10.0) H 11/21/16 07:09 Eos % (Auto) 2.8 % (0.0-4.0) 11/21/16 07:09 Baso % (Auto) 0.4 % (0.0-2.0) 11/21/16 07:09 Neut # 2.0 K/uL (1.8-7.0) 11/21/16 07:09 Lymph # 1.3 K/uL (1.0-4.3) 11/21/16 07:09 Pender # 0.4 K/uL (0.0-0.8) 11/21/16 07:09 Eos # 0.1 K/uL (0.0-0.7) 11/21/16 07:09 Baso # 0.0 K/uL (0.0-0.2) 11/21/16 07:09 Neutrophils % (Manual) 57 % (50-75) 11/17/16 04:15 Band Neutrophils % 2 % (0-2) 11/17/16 04:15 Lymphocytes % (Manual) 17 % (20-40) L 11/17/16 04:15 Reactive Lymphs % 1 % (0-0) H 11/17/16 04:15 Monocytes % (Manual) 22 % (0-10) H 11/17/16 04:15 Eosinophils % (Manual) 1 % (0-4) 11/17/16 04:15 Nucleated RBC % 2 % (0-0) H 11/16/16 23:44 Platelet Estimate Markedly decreased (NORMAL) L 11/17/16 04:15 Large Platelets Present 11/17/16 04:15 Hypochromasia (manual) Slight 11/17/16 04:15 Poikilocytosis (manual Slight 11/17/16 04:15 Anisocytosis (manual) Slight 11/17/16 04:15 Microcytosis (manual) Slight 11/17/16 04:15 Macrocytosis (manual) Slight 11/17/16 04:15 Spherocytes Slight 11/17/16 04:15 Target Cells Slight 11/17/16 04:15 Tear Drop Cells Slight 11/17/16 04:15 Ovalocytes Slight 11/17/16 04:15 ESR 103 mm/hr (0-20) H 11/17/16 13:29 Retic Count 0.4 % (0.5-1.5) L 11/17/16 13:29 Hemoglobin A 96.6 Percent (>96.0) 11/17/16 13:29 Hemoglobin A2 2.4 Percent (1.8-3.5) 11/17/16 13:29 Hemoglobin C 0.0 Percent (0.0-0.0) 11/17/16 13:29 Hemoglobin F () <1.0 Percent (<2.0) 11/17/16 13: Hemoglobin S 0.0 Percent (0.0-0.0) 11/17/16 13: Variant Hemoglobin 0.0 Percent (0.0-0.0) 11/17/16 13:29 Hemoglobinopathy Red Blood Count 2.94 Mill/mcL (3.80-5.10) L 11/17/16 13:29 Hemoglobinopathy Hct 24.9 % (35.0-45.0) L 11/17/16 13:29 Hemoglobinopathy Hgb 8.1 g/dL (11.7-15.5) L 11/17/16 13: Hemoglobinopathy MCV 84.7 fL (80.0-100.0) 11/17/16 13: Hemoglobinopathy MCH 27.5 pg (27.0-33.0) 11/17/16 13: Hemoglobinopathy RDW 21.9 % (11.0-15.0) H 11/17/16 13:29 Hemoglobinopathy Interp See note (()) 11/17/16 13:29 Haptoglobin 496 mg/dL (43-212) H 11/17/16 13:29 PT 14.1 SECONDS (9.7-12.2) H 11/20/16 06:00 INR 1.3 11/20/16 06:00 APTT 29 SECONDS (21-34) 11/16/16 23:44 Puncture Site Rba 11/17/16 12:35 pCO2 29 mm/Hg (35-45) L 11/17/16 12:35 pO2 101 mm/Hg (80-100) H 11/17/16 12:35 HCO3 22.9 mmol/L (21-28) 11/17/16 12:35 ABG pH 7.45 (7.35-7.45) 11/17/16 12:35 ABG Total CO2 21.1 mmol/L (22-28) L 11/17/16 12:35 ABG O2 Saturation 100.3 % (95-98) H 11/17/16 12:35 ABG Base Excess -2.6 mmol/L (-2.0-3.0) L 11/17/16 12:35 Sravan Test N/a 11/17/16 12:35 ABG Potassium 4.0 mmol/L (3.6-5.2) 11/17/16 12:35 VBG pH 7.40 (7.32-7.43) 11/16/16 23:50 VBG pCO2 37 mmHg (40-60) L 11/16/16 23:50 VBG HCO3 23.2 mmol/L 11/16/16 23:50 VBG Total CO2 24.0 mmol/L (22-28) 11/16/16 23:50 VBG O2 Sat (Calc) 82.1 % (40-65) H 11/16/16 23:50 VBG Base Excess -1.5 mmol/L (0.0-2.0) L 11/16/16 23:50 VBG Potassium 3.4 mmol/L (3.6-5.2) L 11/16/16 23:50 Sodium 136.0 mmol/l (132-148) 11/17/16 12:35 Chloride 113.0 mmol/L (98-107) H 11/17/16 12:35 Glucose 118 mg/dl (65-105) H 11/17/16 12:35 Lactate 0.6 mmol/L (0.7-2.1) L 11/17/16 12:35 Sodium 141 mmol/L (132-148) 11/21/16 07:09 Potassium 4.0 mmol/L (3.6-5.2) 11/21/16 07:09 Chloride 106 mmol/L (98-107) 11/21/16 07:09 Carbon Dioxide 26 mmol/L (22-30) 11/21/16 07:09 Anion Gap 14 (10-20) 11/21/16 07:09 BUN 4 mg/dL (7-17) L 11/21/16 07:09 Creatinine 0.6 MG/DL (0.7-1.2) L 11/21/16 07:09 Est GFR ( Amer) > 60 11/21/16 07:09 Est GFR (Non-Af Amer) > 60 11/21/16 07:09 POC Glucose (mg/dL) 117 mg/dL (65-110) H 11/21/16 11:22 Random Glucose 86 mg/dL (65-105) 11/21/16 07:09 Calcium 7.8 mg/dl (8.6-10.4) L 11/21/16 07:09 Phosphorus 3.4 mg/dL (2.5-4.5) 11/21/16 07:09 Magnesium 1.6 mg/dL (1.6-2.3) 11/21/16 07:09 TIBC 201 ug/dL (250-450) L 11/17/16 13:29 % Saturation 45 (20-55) 11/17/16 13:29 Ferritin 8420.0 ng/mL 11/17/16 13:29 Total Bilirubin 0.3 mg/dL (0.2-1.3) 11/21/16 07:09 GGT 65 U/L (8-78) 11/17/16 13:29 AST 84 U/L (14-36) H 11/21/16 07:09 ALT 68 U/L (9-52) H 11/21/16 07:09 Alkaline Phosphatase 90 U/L (38-126) 11/21/16 07:09 Lactate Dehydrogenase 772 U/L (313-618) H 11/17/16 13:29 Total Creatine Kinase 60 U/L (30-135) 11/17/16 13:29 C-React Prot High Sens > 15.00 mg/L (1.00-3.00) H 11/17/16 13:29 Total Protein 4.9 g/dL (6.3-8.3) L 11/21/16 07:09 Albumin 2.3 g/dL (3.5-5.0) L 11/21/16 07:09 Globulin 2.6 gm/dL (2.2-3.9) 11/21/16 07:09 Albumin/Globulin Ratio 0.9 (1.0-2.1) L 11/21/16 07:09 Vitamin B12 > 1000 pg/mL (239-931) H 11/17/16 13:29 Folate 14.2 ng/mL 11/17/16 13:29 Procalcitonin 0.57 NG/ML (0.19-0.49) H 11/17/16 04:15 TSH 3rd Generation 1.09 mIU/L (0.46-4.68) 11/17/16 13:29 Beta HCG, Quant 4.09 mIU/ML 11/20/16 06:00 Arterial Blood Potassium 4.0 mmol/L (3.6-5.2) 11/17/16 12:35 Venous Blood Potassium 3.4 mmol/L (3.6-5.2) L 11/16/16 23:50 Urine Color Straw (YELLOW) 11/17/16 00:57 Urine Clarity Clear (Clear) 11/17/16 00:57 Urine pH 6.0 (5.0-8.0) 11/17/16 00:57 Ur Specific Ralph 1.004 (1.003-1.030) 11/17/16 00:57 Urine Protein Negative mg/dL (NEGATIVE) 11/17/16 00:57 Urine Glucose (UA) Normal mg/dL (Normal) 11/17/16 00:57 Urine Ketones Negative mg/dL (NEGATIVE) 11/17/16 00:57 Urine Blood 2+ (NEGATIVE) H 11/17/16 00:57 Urine Nitrate Negative (NEGATIVE) 11/17/16 00:57 Urine Bilirubin Negative (NEGATIVE) 11/17/16 00:57 Urine Urobilinogen Normal mg/dL (0.2-1.0) 11/17/16 00:57 Ur Leukocyte Esterase Neg Andrew/uL (Negative) 11/17/16 00:57 Urine WBC (Auto) 1 /hpf (0-5) 11/17/16 00:57 Urine RBC (Auto) 4 /hpf (0-3) H 11/17/16 00:57 Urine HCG, Qual Negative (NEGATIVE) 11/17/16 13:29 Stool Occult Blood Positive (NEGATIVE) H 11/17/16 13:07 Urine Opiates Screen Negative (NEGATIVE) 11/17/16 19:15 Urine Methadone Screen Negative (NEGATIVE) 11/17/16 19:15 Ur Barbiturates Screen Negative (NEGATIVE) 11/17/16 19:15 Ur Phencyclidine Scrn Negative (NEGATIVE) 11/17/16 19:15 Ur Amphetamines Screen Negative (NEGATIVE) 11/17/16 19:15 U Benzodiazepines Scrn Negative (NEGATIVE) 11/17/16 19:15 U Oth Cocaine Metabols Negative (NEGATIVE) 11/17/16 19:15 U Cannabinoids Screen Negative (NEGATIVE) 11/17/16 19:15 Hepatitis A IgM Ab Negative (NEGATIVE) 11/17/16 13:29 Hep Bs Antigen Negative (NEGATIVE) 11/17/16 13:29 Hep B Core IgM Ab Negative (NEGATIVE) 11/17/16 13:29 Hepatitis C Antibody Negative (NEGATIVE) 11/17/16 13:29 HIV 1&2 Antibody Screen Negative (NEGATIVE) 11/17/16 13:29 Blood Type A POSITIVE 11/17/16 05:21 Antibody Screen Negative 11/17/16 05:21 - Hospital Course Hospital Course: 51 yo Finnish speaking only F w/PMH sig for constipation admitted to hospital for weakness x 2-3 weeks. Per family- patient went to [facility] ([facility] approx 3 wks ago- dx w/UTI, d/c'd on Cipro- took a few days of medication, then discontinued it due to abdominal pain per PMD recommendation. 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 Denies emesis, SOB, CP, headache, rhinorrhea, hematuria, urinary frequency, sick contacts, hematochezia, numbness or tingling of extremities. Patient with pancytopenia/hypothermia upon admission, met criteria for sepsis. Patient seen/evaluated by ICU for sepsis- no need for ICU care as per ICU attending. Patient treated for sepsis. Patient given 1 unit pRBCs for acute anemia. Patient seen/evaluated by heme/onc. During hospitalization pancytopenia improved. No intervention as per heme/onc. Patient had transient hypokalemia and hyponatremia- both treated and resolved.Patient seen/evaluated by GI- taken for colonoscopy and endoscopy w/findings of gastritis, duodenitis, gastric ulcer, internal hemorrhoids and polyps x 2 in the ascending colon- removed and sent for pathology. Patient stable, cleared for discharge home as per Dr. Jones with instructions to follow up with her PMD and the [facility] for pathology results from colonoscopy. Diagnoses: pancytopenia, weakness, hypothermia, colon polyps, gastritis, gastric ulcer, duodenitis - Date & Time of H&P Date of H&P: 11/17/16 Time of H&P: 04:26 Discharge Exam - Head Exam Head Exam: ATRAUMATIC, NORMAL INSPECTION, NORMOCEPHALIC - Eye Exam Eye Exam: EOMI, Normal appearance, PERRL Pupil Exam: NORMAL ACCOMODATION, PERRL - ENT Exam ENT Exam: Mucous Membranes Moist, Normal Exam - Neck Exam Neck exam: Full Rom, Normal Inspection - Respiratory Exam Respiratory Exam: Clear to PA & Lateral, NORMAL BREATHING PATTERN, UNREMARKABLE. absent: Rales, Rhonchi, Wheezes, Respiratory Distress - Cardiovascular Exam Cardiovascular Exam: REGULAR RHYTHM, +S1, +S2 - GI/Abdominal Exam GI & Abdominal Exam: Normal Bowel Sounds, Soft, Unremarkable. absent: Distended , Firm, Guarding, Hernia, Tenderness - Extremities Exam Extremities exam: normal inspection - Back Exam Back exam: FULL ROM, NORMAL INSPECTION - Neurological Exam Neurological exam: Alert, CN II-XII Intact, Oriented x3 - Psychiatric Exam Psychiatric exam: Normal Affect, Normal Mood - Skin Skin Exam: Dry, Intact, Normal Color, Warm Discharge Plan - Discharge Medications Prescriptions: Famotidine [Pepcid] 20 mg PO DAILY #30 tab - Follow Up Plan Condition: SERIOUS Disposition: HOME/ ROUTINE Instructions: Famotidine (By mouth), Peptic Ulcer (DC), Gastritis (DC), Colonoscopy (DC), Rectal Bleeding (DC), Hyponatremia (DC), Anemia (DC), Thrombocytopenia (DC) Additional Instructions: Patient stable, cleared for discharge home by Dr. Jones. Please follow up with your primary care doctor within 1 week after hospitalization. If you do not have a primary care doctor, please establish care with the [facility]. Please follow up with the [facility] in the [facility] in 2-3 weeks for the pathology results from your colonoscopy. You are being prescribed a medication for your gastritis, please take it as directed. If you have a recurrence of symptoms, please return to the hospital. Referrals: [facility] at [facility] [Outside] <Deny Jones - Last Filed: 11/21/16 15:18> Provider - Provider Date of Admission: 11/17/16 02:31 Attending physician: Deny Jones, DO Hospital Course - Lab Results Lab Results: Micro Results 11/18/16 Unknown Urine,Clean Catch Urine Culture - Final No Growth (<1,000 CFU/ML) Most Recent Lab Values WBC 3.8 K/uL (4.8-10.8) L 11/21/16 07:09 RBC 3.13 Mil/uL (3.80-5.20) L 11/21/16 07:09 Hgb 8.6 g/dL (11.0-16.0) L 11/21/16 07:09 Hct 26.0 % (34.0-47.0) L 11/21/16 07:09 MCV 82.9 fL (81.0-99.0) 11/21/16 07:09 MCH 27.6 pg (27.0-31.0) 11/21/16 07:09 MCHC 33.3 g/dL (33.0-37.0) 11/21/16 07:09 RDW 18.9 % (11.5-14.5) H 11/21/16 07:09 Plt Count 203 K/uL (130-400) 11/21/16 07:09 MPV 8.0 fL (7.2-11.7) 11/21/16 07:09 Neut % (Auto) 51.4 % (50.0-75.0) 11/21/16 07:09 Lymph % (Auto) 35.1 % (20.0-40.0) 11/21/16 07:09 Pender % (Auto) 10.3 % (0.0-10.0) H 11/21/16 07:09 Eos % (Auto) 2.8 % (0.0-4.0) 11/21/16 07:09 Baso % (Auto) 0.4 % (0.0-2.0) 11/21/16 07:09 Neut # 2.0 K/uL (1.8-7.0) 11/21/16 07:09 Lymph # 1.3 K/uL (1.0-4.3) 11/21/16 07:09 Pender # 0.4 K/uL (0.0-0.8) 11/21/16 07:09 Eos # 0.1 K/uL (0.0-0.7) 11/21/16 07:09 Baso # 0.0 K/uL (0.0-0.2) 11/21/16 07:09 Neutrophils % (Manual) 57 % (50-75) 11/17/16 04:15 Band Neutrophils % 2 % (0-2) 11/17/16 04:15 Lymphocytes % (Manual) 17 % (20-40) L 11/17/16 04:15 Reactive Lymphs % 1 % (0-0) H 11/17/16 04:15 Monocytes % (Manual) 22 % (0-10) H 11/17/16 04:15 Eosinophils % (Manual) 1 % (0-4) 11/17/16 04:15 Nucleated RBC % 2 % (0-0) H 11/16/16 23:44 Platelet Estimate Markedly decreased (NORMAL) L 11/17/16 04:15 Large Platelets Present 11/17/16 04:15 Hypochromasia (manual) Slight 11/17/16 04:15 Poikilocytosis (manual Slight 11/17/16 04:15 Anisocytosis (manual) Slight 11/17/16 04:15 Microcytosis (manual) Slight 11/17/16 04:15 Macrocytosis (manual) Slight 11/17/16 04:15 Spherocytes Slight 11/17/16 04:15 Target Cells Slight 11/17/16 04:15 Tear Drop Cells Slight 11/17/16 04:15 Ovalocytes Slight 11/17/16 04:15 ESR 103 mm/hr (0-20) H 11/17/16 13:29 Retic Count 0.4 % (0.5-1.5) L 11/17/16 13:29 Hemoglobin A 96.6 Percent (>96.0) 11/17/16 13:29 Hemoglobin A2 2.4 Percent (1.8-3.5) 11/17/16 13:29 Hemoglobin C 0.0 Percent (0.0-0.0) 11/17/16 13:29 Hemoglobin F () <1.0 Percent (<2.0) 11/17/16 13:29 Hemoglobin S 0.0 Percent (0.0-0.0) 11/17/16 13:29 Variant Hemoglobin 0.0 Percent (0.0-0.0) 11/17/16 13:29 Hemoglobinopathy Red Blood Count 2.94 Mill/mcL (3.80-5.10) L 11/17/16 13:29 Hemoglobinopathy Hct 24.9 % (35.0-45.0) L 11/17/16 13:29 Hemoglobinopathy Hgb 8.1 g/dL (11.7-15.5) L 11/17/16 13:29 Hemoglobinopathy MCV 84.7 fL (80.0-100.0) 11/17/16 13:29 Hemoglobinopathy MCH 27.5 pg (27.0-33.0) 11/17/16 13:29 Hemoglobinopathy RDW 21.9 % (11.0-15.0) H 11/17/16 13:29 Hemoglobinopathy Interp See note (()) 11/17/16 13:29 Haptoglobin 496 mg/dL (43-212) H 11/17/16 13:29 PT 14.1 SECONDS (9.7-12.2) H 11/20/16 06:00 INR 1.3 11/20/16 06:00 APTT 29 SECONDS (21-34) 11/16/16 23:44 Puncture Site Rba 11/17/16 12:35 pCO2 29 mm/Hg (35-45) L 11/17/16 12:35 pO2 101 mm/Hg (80-100) H 11/17/16 12:35 HCO3 22.9 mmol/L (21-28) 11/17/16 12:35 ABG pH 7.45 (7.35-7.45) 11/17/16 12:35 ABG Total CO2 21.1 mmol/L (22-28) L 11/17/16 12:35 ABG O2 Saturation 100.3 % (95-98) H 11/17/16 12:35 ABG Base Excess -2.6 mmol/L (-2.0-3.0) L 11/17/16 12:35 Sravan Test N/a 11/17/16 12:35 ABG Potassium 4.0 mmol/L (3.6-5.2) 11/17/16 12:35 VBG pH 7.40 (7.32-7.43) 11/16/16 23:50 VBG pCO2 37 mmHg (40-60) L 11/16/16 23:50 VBG HCO3 23.2 mmol/L 11/16/16 23:50 VBG Total CO2 24.0 mmol/L (22-28) 11/16/16 23:50 VBG O2 Sat (Calc) 82.1 % (40-65) H 11/16/16 23:50 VBG Base Excess -1.5 mmol/L (0.0-2.0) L 11/16/16 23:50 VBG Potassium 3.4 mmol/L (3.6-5.2) L 11/16/16 23:50 Sodium 136.0 mmol/l (132-148) 11/17/16 12:35 Chloride 113.0 mmol/L (98-107) H 11/17/16 12:35 Glucose 118 mg/dl (65-105) H 11/17/16 12:35 Lactate 0.6 mmol/L (0.7-2.1) L 11/17/16 12:35 Sodium 141 mmol/L (132-148) 11/21/16 07:09 Potassium 4.0 mmol/L (3.6-5.2) 11/21/16 07:09 Chloride 106 mmol/L (98-107) 11/21/16 07:09 Carbon Dioxide 26 mmol/L (22-30) 11/21/16 07:09 Anion Gap 14 (10-20) 11/21/16 07:09 BUN 4 mg/dL (7-17) L 11/21/16 07:09 Creatinine 0.6 MG/DL (0.7-1.2) L 11/21/16 07:09 Est GFR ( Amer) > 60 11/21/16 07:09 Est GFR (Non-Af Amer) > 60 11/21/16 07:09 POC Glucose (mg/dL) 117 mg/dL (65-110) H 11/21/16 11:22 Random Glucose 86 mg/dL (65-105) 11/21/16 07:09 Calcium 7.8 mg/dl (8.6-10.4) L 11/21/16 07:09 Phosphorus 3.4 mg/dL (2.5-4.5) 11/21/16 07:09 Magnesium 1.6 mg/dL (1.6-2.3) 11/21/16 07:09 TIBC 201 ug/dL (250-450) L 11/17/16 13:29 % Saturation 45 (20-55) 11/17/16 13:29 Ferritin 8420.0 ng/mL 11/17/16 13:29 Total Bilirubin 0.3 mg/dL (0.2-1.3) 11/21/16 07:09 GGT 65 U/L (8-78) 11/17/16 13:29 AST 84 U/L (14-36) H 11/21/16 07:09 ALT 68 U/L (9-52) H 11/21/16 07:09 Alkaline Phosphatase 90 U/L (38-126) 11/21/16 07:09 Lactate Dehydrogenase 772 U/L (313-618) H 11/17/16 13:29 Total Creatine Kinase 60 U/L (30-135) 11/17/16 13:29 C-React Prot High Sens > 15.00 mg/L (1.00-3.00) H 11/17/16 13:29 Total Protein 4.9 g/dL (6.3-8.3) L 11/21/16 07:09 Albumin 2.3 g/dL (3.5-5.0) L 11/21/16 07:09 Globulin 2.6 gm/dL (2.2-3.9) 11/21/16 07:09 Albumin/Globulin Ratio 0.9 (1.0-2.1) L 11/21/16 07:09 Vitamin B12 > 1000 pg/mL (239-931) H 11/17/16 13:29 Folate 14.2 ng/mL 11/17/16 13:29 Procalcitonin 0.57 NG/ML (0.19-0.49) H 11/17/16 04:15 TSH 3rd Generation 1.09 mIU/L (0.46-4.68) 11/17/16 13:29 Beta HCG, Quant 4.09 mIU/ML 11/20/16 06:00 Arterial Blood Potassium 4.0 mmol/L (3.6-5.2) 11/17/16 12:35 Venous Blood Potassium 3.4 mmol/L (3.6-5.2) L 11/16/16 23:50 Urine Color Straw (YELLOW) 11/17/16 00:57 Urine Clarity Clear (Clear) 11/17/16 00:57 Urine pH 6.0 (5.0-8.0) 11/17/16 00:57 Ur Specific Ralph 1.004 (1.003-1.030) 11/17/16 00:57 Urine Protein Negative mg/dL (NEGATIVE) 11/17/16 00:57 Urine Glucose (UA) Normal mg/dL (Normal) 11/17/16 00:57 Urine Ketones Negative mg/dL (NEGATIVE) 11/17/16 00:57 Urine Blood 2+ (NEGATIVE) H 11/17/16 00:57 Urine Nitrate Negative (NEGATIVE) 11/17/16 00:57 Urine Bilirubin Negative (NEGATIVE) 11/17/16 00:57 Urine Urobilinogen Normal mg/dL (0.2-1.0) 11/17/16 00:57 Ur Leukocyte Esterase Neg Andrew/uL (Negative) 11/17/16 00:57 Urine WBC (Auto) 1 /hpf (0-5) 11/17/16 00:57 Urine RBC (Auto) 4 /hpf (0-3) H 11/17/16 00:57 Urine HCG, Qual Negative (NEGATIVE) 11/17/16 13:29 Stool Occult Blood Positive (NEGATIVE) H 11/17/16 13:07 Urine Opiates Screen Negative (NEGATIVE) 11/17/16 19:15 Urine Methadone Screen Negative (NEGATIVE) 11/17/16 19:15 Ur Barbiturates Screen Negative (NEGATIVE) 11/17/16 19:15 Ur Phencyclidine Scrn Negative (NEGATIVE) 11/17/16 19:15 Ur Amphetamines Screen Negative (NEGATIVE) 11/17/16 19:15 U Benzodiazepines Scrn Negative (NEGATIVE) 11/17/16 19:15 U Oth Cocaine Metabols Negative (NEGATIVE) 11/17/16 19:15 U Cannabinoids Screen Negative (NEGATIVE) 11/17/16 19:15 Hepatitis A IgM Ab Negative (NEGATIVE) 11/17/16 13:29 Hep Bs Antigen Negative (NEGATIVE) 11/17/16 13:29 Hep B Core IgM Ab Negative (NEGATIVE) 11/17/16 13:29 Hepatitis C Antibody Negative (NEGATIVE) 11/17/16 13:29 HIV 1&2 Antibody Screen Negative (NEGATIVE) 11/17/16 13:29 Blood Type A POSITIVE 11/17/16 05:21 Antibody Screen Negative 11/17/16 05:21 Attending/Attestation - Attestation I have personally seen and examined this patient.: Yes I have fully participated in the care of the patient.: Yes I have reviewed all pertinent clinical information, including history, physical exam and plan: Yes Notes (Text): 11/21/16 15:16 Medical attending: Patient was seen and examined by me, agrees the above note by medical biller/coder. Family member was present as well, as mentioned above patient has just completed EGD as well as colonoscopy We reviewed her lab work, her hemoglobin is currently stable, her blood pressure was stable as well. As mentioned before we discussed the CAT scan results which then led us to explained to the patient that she needs follow-up for the biopsies that were done during colonoscopy the results of these biopsies may take some time to return so we encouraged her the importance of following up. Because the patient does not have primary care physician she's continued to follow-up at [facility] clinic thank you Deny Jones
== END 2016-11-21 14:00 | disposition home or self-care (01) | DRG 584 ==
LOC: C.ER 22:43 → C.9E 11-17 02:31 → C.6T 11-17 18:52
PROVIDERS: ADMIT Hospitalist; ATTEND Hospitalist
PROC: 0DB68ZX Excision of Stomach, Via Natural or Artificial Opening Endoscopic, Diagnostic (ICD-10-PCS; principal; 2016-11-20 12:55)
PROC: 0DBM8ZX Excision of Descending Colon, Via Natural or Artificial Opening Endoscopic, Diagnostic (ICD-10-PCS; 2016-11-20 12:55)
DX: A41.9 Sepsis, unspecified organism (principal); K85.90 Acute pancreatitis without necrosis or infection, unspecified; D61.818 Other pancytopenia; D68.9 Coagulation defect, unspecified; E87.1 Hypo-osmolality and hyponatremia; E87.6 Hypokalemia; N39.0 Urinary tract infection, site not specified; D12.4 Benign neoplasm of descending colon; D50.9 Iron deficiency anemia, unspecified; E11.9 Type 2 diabetes mellitus without complications; F17.210 Nicotine dependence, cigarettes, uncomplicated; K25.9 Gastric ulcer, unspecified as acute or chronic, without hemorrhage or perforation; K29.70 Gastritis, unspecified, without bleeding; K29.80 Duodenitis without bleeding; K64.8 Other hemorrhoids; K76.89 Other specified diseases of liver; B96.81 Helicobacter pylori [H. pylori] as the cause of diseases classified elsewhere

== ENCOUNTER 2016-12-19 10:43 | Inpatient (IN) | payer OTHER ==
[2016-12-19 11:52] LABS: RBC URINE 2 /hpf (0-3); URINE BILIRUBIN NEGATIVE (NEGATIVE); URINE BLOOD 2+ (NEGATIVE); URINE COLOR Yellow (YELLOW); URINE GLUCOSE (UA) NORMAL (Normal); URINE KETONE NEGATIVE (NEGATIVE); URINE LEUKOCYTE ESTERASE TRACE Leu/uL (Negative); URINE PROTEIN 1+ mg/dL (NEGATIVE); URINE UROBILINOGEN NORMAL mg/dL (0.2-1.0); WBC URINE 3 /hpf (0-5)
[2016-12-19 11:53] LABS: CHLORIDE 95 mmol/L (98-107); INR 1.3
[2016-12-19 11:54] LABS: SODIUM 128 mmol/L (132-148)
[2016-12-19 11:55] LABS: BASO % 0.5 % (0.0-2.0); EOS % 0.3 % (0.0-4.0); HEMATOCRIT 29.9 % (34.0-47.0); LYMPH # 1.4 K/uL (1.0-4.3); LYMPH % 18.8 % (20.0-40.0); MEAN CELL VOLUME 85.3 fL (81.0-99.0); MEAN CORPUSCULAR HEMOGLOBIN 27.6 pg (27.0-31.0); MEAN CORPUSCULAR HGB CONC 32.4 g/dL (33.0-37.0); MEAN PLATELET VOLUME 8.9 fL (7.2-11.7); MONO # 1.3 K/uL (0.0-0.8); MONO % 17.2 % (0.0-10.0); RED CELL DISTRIBUTION WIDTH 19.3 % (11.5-14.5)
[2016-12-19 11:56] LABS: ALB/GLOB RATIO 1.1 (1.0-2.1); ALKALINE PHOSPHATASE 78 U/L (38-126); AST/SGOT 24 U/L (14-36); BILIRUBIN,TOTAL 1.6 mg/dL (0.2-1.3); BLOOD UREA NITROGEN 12 mg/dL (7-17); CARBON DIOXIDE 23 mmol/L (22-30); GFR AFRICAN-AMERICAN > 60; TOTAL PROTEIN 6.6 g/dL (6.3-8.3); WHITE BLOOD COUNT 7.5 K/uL (4.8-10.8)
[2016-12-19 11:57] LABS: ALT/SGPT 23 U/L (9-52); CALCIUM 7.9 mg/dl (8.6-10.4); GLUCOSE,RANDOM 127 mg/dL (65-105)
--- NOTE | 2016-12-19 12:08 | C.PDOC ---
History Of Present Illness 51-year-old female, presents to the emergency department, sent by Dr Prabhakar for liver biopsy. Patient had a CT scan last month that showed multiple hypodense lesions on the liver. Patient notes associated decreased PO intake and malaise. Denies chest pain, shortness of breath, fevers, chest pain or any other associated symptoms. No other complaints at this time. Chief Complaint (Nursing): Abdominal Pain History Per: Patient History/Exam Limitations: no limitations Past Medical History Reviewed: Historical Data, Nursing Documentation, Vital Signs Vital Signs: Last Vital Signs Temp 99.8 F H 12/19/16 10:48 Pulse 101 H 12/19/16 17:25 Resp 18 12/19/16 17:25 BP 106/53 L 12/19/16 17:25 Pulse Ox 100 12/19/16 17:25 - [facility] Procedures EXCISION OF DESCENDING COLON, ENDO, DIAGN (11/17/16) EXCISION OF STOMACH, ENDO, DIAGN (11/17/16) Family History: States: Unknown Family Hx - Social History Hx Tobacco Use: No Hx Alcohol Use: No Hx Substance Use: No - Immunization History Hx Tetanus Toxoid Vaccination: No Hx Influenza Vaccination: No Hx Pneumococcal Vaccination: No Review Of Systems Except As Marked, All Systems Reviewed And Found Negative. Constitutional: Positive for: Malaise Cardiovascular: Negative for: Chest Pain, Palpitations Gastrointestinal: Negative for: Vomiting Skin: Negative for: Rash Physical Exam - Physical Exam Appears: Non-toxic, No Acute Distress Skin: Warm, Dry, No Rash Head: Atraumatic, Normacephalic Eye(s): bilateral: Normal Inspection, PERRL Nose: Normal Oral Mucosa: Moist Lips: Normal Appearing Neck: Normal ROM Respiratory: No Accessory Muscle Use Gastrointestinal/Abdominal: Soft, No Tenderness, No Guarding, No Rebound, Other ((+) hepatomegaly) Extremity: Normal ROM Neurological/Psych: Oriented x3, Normal Speech ED Course And Treatment - Laboratory Results Result Diagrams: 12/19/16 11:39 12/19/16 11:39 O2 Sat by Pulse Oximetry: 99 Medical Decision Making Medical Decision Making: Impression Comes in for liver biopsy, sent by Dr Prabhakar Plan: * Type and Screen * CMP, Lipase * CBC, PTT, PT * Urine Culture * Urinalysis * Reassess and Disposition Disposition - Disposition Disposition Time: 12:00 Condition: STABLE - Clinical Impression Clinical Impression: Metastatic cancer to liver, Weakness generalized - Scribe Statement The provider has reviewed the documentation as recorded by the Erinnibe Melani Rivera All medical record entries made by the Erinnibcherri were at my direction and personally dictated by me. I have reviewed the chart and agree that the record accurately reflects my personal performance of the history, physical exam, medical decision making, and the department course for this patient. I have also personally directed, reviewed, and agree with the discharge instructions and disposition.
[2016-12-19] MEDS ORDERED: Sodium Chloride 0.9% 1,000 ML IV ONE (12:15)
[2016-12-19] MEDS ORDERED: Sodium Chloride 0.9% 1,000 ML ONE (12:36)
--- NOTE | 2016-12-19 14:52 | CP.PCM.HP ---
<Romaine Rivera - Last Filed: 12/19/16 16:09> History of Present Illness - History of Present Illness History of Present Illness: CC: abdominal pain and low back pain. HPI: Patient is a 51 year old female with a history of pancyopenia, uterine fibroids, and H. Pylori is here because she was sent by heme/oncologist Dr. Chavarria for liver biopsy. She was admitted last month and had a CT of the abdomen and pelvis that showed several hypodense lesions in the liver which was consistent with metistatic disease. She was seen in the clinic about 10 days ago. She was referred to Dr. Chavarria from the past admission for pancytopenia and also considered a bone marrow biopsy. She is currently complaining of lower abdominal pain, black pain, body aches, subjective fever and chills, and lower extremities weakness. She reports taking no medication at home. She denies changes in vision, hearing, chest pain, shortness of breath, cough, nausea, vomiting, blood in stool, joint pain, anxiety, or depression. She does complain of urinary urgency and generalized itching for the past several days. PSH: FH: Patient denies any family history of cancer SH: Admits to 12ppd x 20 yrs tobacco use, denies ETOH or illicit drug use, works as a personal care home administrator. Present on Admission - Present on Admission Any Indicators Present on Admission: No History of DVT/PE: No History of Uncontrolled Diabetes: No Urinary Catheter: No Decubitus Ulcer Present: No History Surgical Site Infection Following: None Review of Systems - Review of Systems All systems: reviewed and no additional remarkable complaints except - Constitutional Constitutional: Fatigue, Fever, Malaise, Weakness - EENT Eyes: absent: Change in Vision Ears: absent: Dizziness - Cardiovascular Cardiovascular: absent: Chest Pain, Palpitations - Respiratory Respiratory: absent: Cough, Dyspnea, Dyspnea on Exertion - Gastrointestinal Gastrointestinal: Abdominal Pain. absent: Constipation, Diarrhea, Nausea, Vomiting - Genitourinary Genitourinary: absent: Dysuria - Menstruation Menstruation: Post Menopausal - Musculoskeletal Musculoskeletal: Back Pain, Muscle Weakness. absent: Numbness, Tingling - Integumentary Integumentary: Pruritus (generalized puritis). absent: Jaundice - Neurological Neurological: Weakness. absent: Headaches, Paresthesias - Psychiatric Psychiatric: absent: Anxiety - Endocrine Endocrine: Fatigue. absent: Palpitations Past Patient History - Infectious Disease Hx of Infectious Diseases: None - Past Medical History & Family History Past Medical History?: Yes - Past Social History Smoking Status: Light Smoker < 10 Cigarettes Daily - CARDIAC Hx Cardiac Disorders: No - PULMONARY Hx Respiratory Disorders: No - NEUROLOGICAL Hx Neurological Disorder: No - HEENT Hx HEENT Problems: No - RENAL Hx Chronic Kidney Disease: No - ENDOCRINE/METABOLIC Hx Endocrine Disorders: No Hx Diabetes Mellitus Type 2: (DENIES 12/19) - HEMATOLOGICAL/ONCOLOGICAL Hx Blood Disorders: No - INTEGUMENTARY Hx Dermatological Problems: No - MUSCULOSKELETAL/RHEUMATOLOGICAL Hx Musculoskeletal Disorders: No Hx Falls: No - GASTROINTESTINAL Hx Gastrointestinal Disorders: No - GENITOURINARY/GYNECOLOGICAL Hx Genitourinary Disorders: No - PSYCHIATRIC Hx Substance Use: No - SURGICAL HISTORY Hx Section: Yes - ANESTHESIA Hx Anesthesia: Yes Hx Anesthesia Reactions: No Meds Allergies/Adverse Reactions: Allergies Allergy/AdvReac Type Severity Reaction Status Date / Time No Known Allergies Allergy Verified 12/19/16 10:52 Physical Exam - Constitutional Appears: Non-toxic, No Acute Distress, Other (uncomfortable) - Head Exam Head Exam: ATRAUMATIC, NORMAL INSPECTION - Eye Exam Eye Exam: Normal appearance, PERRL. absent: Nystagmus, Scleral icterus Pupil Exam: NORMAL ACCOMODATION - ENT Exam ENT Exam: Normal Exam - Neck Exam Neck exam: Positive for: Normal Inspection - Respiratory Exam Respiratory Exam: Clear to Auscultation Bilateral. absent: Rales, Rhonchi, Wheezes - Cardiovascular Exam Cardiovascular Exam: REGULAR RHYTHM, RRR, +S1, +S2. absent: Gallop, Rubs - GI/Abdominal Exam GI & Abdominal Exam: Normal Bowel Sounds. absent: Soft, Tenderness - Extremities Exam Extremities exam: Negative for: calf tenderness, pedal edema, tenderness - Back Exam Back exam: paraspinal tenderness, vertebral tenderness. absent: CVA tenderness (L), CVA tenderness (R) - Neurological Exam Neurological exam: Oriented x3 - Psychiatric Exam Psychiatric exam: Normal Affect, Normal Mood - Skin Skin Exam: Dry Additional comments: very warm Results - Vital Signs Recent Vital Signs: Last Vital Signs Temp 99.8 F H 12/19/16 10:48 Pulse 107 H 12/19/16 10:48 Resp 15 12/19/16 10:48 BP 86/58 L 12/19/16 10:48 Pulse Ox 99 12/19/16 13:34 - Labs Result Diagrams: 12/19/16 11:39 12/19/16 11:39 Assessment & Plan (1) Sepsis Status: c Comment: Patient has a low grade fever with hypotension, responding well to IV fluids, VBG shows a lactate of 0.8, consider ICU evaluation if changes in mental status. Started Vanc 1 gram q12h and also Zosyn 3.375gm Q8h IVBP. Even though the patient has urinary urgency complaints the UA only shows +2 protien and +1 blood. Influenza is negative in the ED. (2) Prophylactic measure Status: c Comment: Lovenox 30mg SC daily. pepcid 20mg. SCDs. Tylenol and Ibprofen prn for fever or pain. (3) Metastatic cancer to liver Status: c Comment: CT scan from 11-19 shows several hypodense lesions, was been by Dr. Chavarria yesterday who reccomended to her to have a biopsy. Will consult IR for biopsy. Patient admitted to obs/reg floor. Regular diet, vital signs q4h, <Pool Gillis - Last Filed: 01/22/17 14:54> Results - Vital Signs Recent Vital Signs: Last Vital Signs Temp 99.8 F H 12/24/16 15:00 Pulse 88 12/24/16 15:00 Resp 18 12/24/16 15:00 BP 114/69 12/24/16 15:00 Pulse Ox 99 12/24/16 15:00 - Labs Result Diagrams: 12/24/16 06:30 12/24/16 04:00 Attending/Attestation - Attestation I have personally seen and examined this patient.: Yes I have fully participated in the care of the patient.: Yes I have reviewed all pertinent clinical information: Yes Notes (Text): Patient seen and examined with the resident. Agree with the resident's evaluation, assessment and plan. Metastatic cancer to liver Status: Acute Comment: CT scan from 11-19 shows several hypodense lesions, was been by Dr. Chavarria yesterday who reccomended to her to have a biopsy. Will consult IR for biopsy. Patient admitted to obs/reg floor. Regular diet, vital signs q4h, Sepsis Status: Acute Comment: Patient has a low grade fever with hypotension, responding well to IV fluids, VBG shows a lactate of 0.8, consider ICU evaluation if changes in mental status. Started Vanc 1 gram q12h and also Zosyn 3.375gm Q8h IVBP. Even though the patient has urinary urgency complaints the UA only shows +2 protien and +1 blood. Influenza is negative in the ED.
[2016-12-19] MEDS: Sodium Chloride 0.9% 1,000 ML IV SCH ×2 (14:55→21:26)
[2016-12-19 14:59] LABS: VENOUS BLOOD GAS BASE EXCESS 3.4 mmol/L (0.0-2.0); VENOUS BLOOD GAS PCO2 36 mmHg (40-60); VENOUS BLOOD PH 7.48 (7.32-7.43)
[2016-12-19] MEDS ORDERED: Piperacillin/Tazobact 3.375 gm 100 ML IVPB ONE (16:30)
[2016-12-19] MEDS: Piperacill/Tazo 3.375gm in Dex 50 ML IVPB SCH ×2 (16:37→21:00)
[2016-12-19] MEDS ORDERED: Iodixanol 320 MG/ML 100 ML BOTTLE IV ONE ×2 (17:43→18:58)
[2016-12-19] MEDS ORDERED: Iohexol 240 (50 ml) ONE (17:56)
[2016-12-19] MEDS ORDERED: Iohexol 240 (50 ml) PO ONE (18:12)
[2016-12-19] MEDS ORDERED: Pneumococcal 23-Valent Vaccine IM ONE (20:00)
[2016-12-20] MEDS: Piperacill/Tazo 3.375gm in Dex 50 ML IVPB SCH ×2 (03:13→11:32)
[2016-12-20] MEDS: Sodium Chloride 0.9% 1,000 ML IV SCH ×4 (03:50→21:38)
[2016-12-20] MEDS ORDERED: guaiFENesin DM 200 mg-20 mg/10 ml UD PO STA (06:13)
--- NOTE | 2016-12-20 07:31 | CT ---
PROCEDURE: CT HEAD without and with CONTRAST. HISTORY: Screening exam. Evaluate for metastatic disease. COMPARISON: CT head dated 11/17/2016 TECHNIQUE: Axial computed tomography images were obtained through the head/brain without and with intravenous contrast. 100 cc of Visipaque 320 intravenous contrast was administered. Radiation dose: Total exam DLP = 859 mGy-cm. This CT exam was performed using one or more of the following dose reduction techniques: Automated exposure control, adjustment of the mA and/or kV according to patient size, and/or use of iterative reconstruction technique. FINDINGS: HEMORRHAGE: No intracranial hemorrhage. BRAIN: No mass effect or edema. No atrophy or chronic microvascular ischemic changes. Small focal area of increased enhancement seen within the high posterior right cerebellum on series 8 image 23 measuring 3 millimeters may represent a prominent vessel. This may be better evaluated with a contrast-enhanced MRI. VENTRICLES: Unremarkable. No hydrocephalus. CALVARIUM: Unremarkable. PARANASAL SINUSES: Unremarkable as visualized. No significant inflammatory changes. MASTOID AIR CELLS: Unremarkable as visualized. No inflammatory changes. OTHER FINDINGS: None. IMPRESSION: Small focal area of increased enhancement seen within the high posterior right cerebellum on series 8 image 23 measuring 3 millimeters may represent a prominent vessel. This may be better evaluated with a contrast-enhanced MRI. If there is persistent concern for metastatic disease, consider further evaluation with a contrast-enhanced MRI. These findings were preliminarily reported at 8:36 p.m. on 12/19/[address] Adalberto Batista from [facility].
[2016-12-20 07:36] LABS: CHLORIDE 102 mmol/L (98-107); POTASSIUM 3.4 mmol/L (3.6-5.2); SODIUM 134 mmol/L (132-148)
[2016-12-20 07:38] LABS: AST/SGOT 33 U/L (14-36); BILIRUBIN,TOTAL 1.9 mg/dL (0.2-1.3); CARBON DIOXIDE 23 mmol/L (22-30); GFR AFRICAN-AMERICAN > 60; TOTAL PROTEIN 5.5 g/dL (6.3-8.3)
[2016-12-20 07:39] LABS: ALKALINE PHOSPHATASE 91 U/L (38-126); ALT/SGPT 40 U/L (9-52); BLOOD UREA NITROGEN 11 mg/dL (7-17); CALCIUM 7.3 mg/dl (8.6-10.4); GLUCOSE,RANDOM 123 mg/dL (65-105); MAGNESIUM 1.8 mg/dL (1.6-2.3); PHOSPHOROUS 3.3 mg/dL (2.5-4.5)
[2016-12-20 07:40] LABS: BASO % 0.6 % (0.0-2.0); EOS # 0.2 K/uL (0.0-0.7); EOS % 2.9 % (0.0-4.0); HEMATOCRIT 29.8 % (34.0-47.0); LYMPH # 0.3 K/uL (1.0-4.3); LYMPH % 5.4 % (20.0-40.0); MEAN CELL VOLUME 85.6 fL (81.0-99.0); MEAN CORPUSCULAR HEMOGLOBIN 27.9 pg (27.0-31.0); MEAN CORPUSCULAR HGB CONC 32.6 g/dL (33.0-37.0); MEAN PLATELET VOLUME 9.4 fL (7.2-11.7); MONO # 0.5 K/uL (0.0-0.8); MONO % 7.3 % (0.0-10.0); NRBC % 0.1 % (0.0-2.0); RED CELL DISTRIBUTION WIDTH 19.5 % (11.5-14.5); WHITE BLOOD COUNT 6.3 K/uL (4.8-10.8)
[2016-12-20 07:44] LABS: PLATELET COUNT 112 K/uL (130-400)
[2016-12-20 08:04] LABS: THYROID STIMULATING HORMONE 1.89 mIU/L (0.46-4.68)
--- NOTE | 2016-12-20 08:36 | CT ---
PROCEDURE: CT Abdomen and Pelvis with contrast HISTORY: metistatic disease COMPARISON: Comparison is made to the previous study dated 11/18/2016 TECHNIQUE: Axial and reformatted coronal and sagittal CT images of the abdomen and pelvis were obtained after IV and oral contrast administration. Contrast dose: 100 mL of Visipaque 320 Radiation dose: Total exam DLP = 272.7 mGy-cm. This CT exam was performed using one or more of the following dose reduction techniques: Automated exposure control, adjustment of the mA and/or kV according to patient size, and/or use of iterative reconstruction technique. FINDINGS: LOWER THORAX: Unremarkable. LIVER: Again seen is well defined low-attenuation cystic lesion at the left liver lobe measures 2.6 centimeter. No evidence of a new lesions in the liver compared to the previous exam. The portal vein is patent. GALLBLADDER AND BILE DUCTS: Unremarkable. PANCREAS: Unremarkable. No gross lesion or ductal dilatation. SPLEEN: Unremarkable. ADRENALS: Unremarkable. No mass. KIDNEYS AND URETERS: Unremarkable. No hydronephrosis. No solid mass. VASCULATURE: Unremarkable. No aortic aneurysm. BOWEL: Mildly dilated large bowel lobe contains fluid density stool. Correlate clinically for diarrhea. No definite evidence of colitis. . No obstruction. No gross mural thickening. APPENDIX: No evidence of appendicitis. PERITONEUM: No evidence of significant free fluid or free air in the abdomen and pelvis. LYMPH NODES: Re- demonstration of retroperitoneal lymphadenopathy extending from the upper abdomen to the aortic bifurcation. There are also mildly enlarged bilateral iliac chain lymph nodes right more than left. BLADDER: Unremarkable. REPRODUCTIVE: Mildly enlarged heterogeneous uterus likely contains fibroids or soft tissue lesions. BONES: No acute fracture. OTHER FINDINGS: None. IMPRESSION: Re- demonstration of moderate retroperitoneal lymphadenopathy and bilateral iliac chain [id number] enlarged lymph nodes right more than left. The differential diagnosis includes metastasis disease of unknown primary versus versus lymphoma versus less likely infectious process. Stable low-attenuation cystic lesion at the left liver lobe. If clinically warranted further assessment by ultrasound may be obtained. Mildly enlarged regulated uterus likely contains fibroids. Further assessment by ultrasound also may be obtained. Mildly distended large bowel contains fluid density stool may represent gastroenteritis or diarrhea type illness. Preliminary report was submitted by [facility].
[2016-12-20 09:52] LABS: EOSINOPHIL 6 % (0-4); NEUTROPHIL 66 % (50-75); TOTAL CELLS COUNTED 100
[2016-12-20] MEDS ORDERED: Enoxaparin 40 mg Syringe SC SCH (10:00)
[2016-12-20] MEDS ORDERED: Potassium Chloride 20 mEq ER Tab PO ONE (10:36)
--- NOTE | 2016-12-20 13:44 | US ---
HISTORY: Abdominal and pelvic pain. Uterine enlargement COMPARISON: 11/17/2016. Pelvic ultrasound December 19, 2016. CT abdomen and pelvis. TECHNIQUE: Transvaginal only. Real -time technique with 2D, duplex and color Doppler FINDINGS: UTERUS: Measures 7.6 x 8.7 x 10.0 cm. Mildly enlarged, unchanged compared to the prior study. Multiple (3) uterine fibroids: 1. Fundal fibroid 3.5 x 4.6 cm. 2. Posterior fibroid midline 2.3 x 2.5 cm. 3. Lower uterine segment fibroid to the left of the midline 2.7 x 2.4 cm. ENDOMETRIUM: Measures 2.1 mm in diameter. Unremarkable. CERVIX: No cervical abnormality identified. RIGHT OVARY: Not visualized LEFT OVARY: Not visualized FREE FLUID: No significant free fluid noted. OTHER FINDINGS: None. IMPRESSION: Enlarged uterus with multiple (3) uterine fibroids. Overall examination unchanged compared to the prior study. Limitations of the current examination: Nonvisualization of the adnexa.
[2016-12-20 13:56] LABS: CA 19-9 < 1.4 U/mL (0-37)
[2016-12-20] MEDS ORDERED: Gadodiamide 287 MG/ML VIAL (15ML) IV ONE (14:00)
--- NOTE | 2016-12-20 15:17 | CP.PCM.PN ---
<Tommy Zimmerman - Last Filed: 12/20/16 15:08> Subjective - Date & Time of Evaluation Date of Evaluation: 12/20/16 Time of Evaluation: 09:30 - Subjective Subjective: PGY-1 Medicine Progress Note for Dr. Jones Patient seen and examined at bedside. No acute event overnight. Patient sitting up i nbed comfortably. Patient is complaining of fever/chills. Patient stated that she alternates between being really hot and really cold. Patient will go for MRI of the brain with contrast today and MRI of Liver (metastatic protocol) tomorrow. Patient is tolerating diet and having BMs. She has no other complaint. Objective - Vital Signs/Intake and Output Vital Signs (last 24 hours): Temp Pulse Resp BP Pulse Ox 98.3 F 86 20 99/62 L 100 12/20/16 07:47 12/20/16 07:47 12/20/16 07:47 12/20/16 07:47 12/20/16 07:47 - Medications Medications: Current Medications Acetaminophen (Tylenol 325mg Tab) 650 mg PO Q6 PRN PRN Reason: Fever >100.4 F Acetaminophen (Tylenol 325mg Tab) 650 mg PO Q6 PRN PRN Reason: Fever >100.4 F Last Admin: 12/19/16 18:17 Dose: 650 mg Famotidine (Pepcid) 20 mg PO BID [facility] Last Admin: 12/20/16 11:36 Dose: 20 mg Sodium Chloride (Sodium Chloride 0.9%) 1,000 mls @ 150 mls/hr IV .Q6H40M [facility] Last Admin: 12/20/16 11:36 Dose: Not Given Cefepime HCl 1 gm/ Dextrose 50 mls @ 100 mls/hr IVPB Q8H [facility] Last Admin: 12/20/16 12:54 Dose: 100 mls/hr Vancomycin HCl 1,000 mg/ (Sodium Chloride) 250 mls @ 166.6 mls/hr IVPB Q12H [facility] Last Admin: 12/20/16 13:00 Dose: 166.6 mls/hr Ibuprofen (Motrin Tab) 600 mg PO Q8H PRN PRN Reason: Pain, severe (8-10) Last Admin: 12/19/16 21:31 Dose: 600 mg Ondansetron HCl (Zofran Inj) 4 mg IVP Q6 PRN PRN Reason: Nausea/Vomiting - Labs Labs: PT 14.9 SECONDS (9.7-12.2) H 12/19/16 11:39 INR 1.3 12/19/16 11:39 APTT 47 SECONDS (21-34) H 12/19/16 11:39 - Constitutional Appears: Non-toxic, No Acute Distress - Head Exam Head Exam: ATRAUMATIC, NORMOCEPHALIC - Eye Exam Eye Exam: EOMI, Normal appearance Pupil Exam: PERRL - ENT Exam ENT Exam: Mucous Membranes Moist - Neck Exam Neck Exam: Normal Inspection - Respiratory Exam Respiratory Exam: Clear to Ausculation Bilateral, NORMAL BREATHING PATTERN - Cardiovascular Exam Cardiovascular Exam: RRR, +S1, +S2 - GI/Abdominal Exam GI & Abdominal Exam: Soft, Normal Bowel Sounds. absent: Tenderness - Extremities Exam Extremities Exam: Normal Capillary Refill. absent: Calf Tenderness, Pedal Edema - Back Exam Back Exam: paraspinal tenderness. absent: CVA tenderness (L), CVA tenderness (R ) - Neurological Exam Neurological Exam: Alert, Awake, CN II-XII Intact, Oriented x3 - Psychiatric Exam Psychiatric exam: Normal Affect, Normal Mood - Skin Skin Exam: Dry, Intact, Normal Color, Warm Assessment and Plan - Assessment and Plan (Free Text) Plan: (1) Metastatic cancer to liver CT scan from - shows several hypodense lesions Heme/Onc consult, Dr. Chavarria, james appreciated - saw patient as outpatient yesterday IR consult for CT-guided biopsy of liver MRI Brain with contrast today MRI liver, metastatic protocol tomorrow CA 19-9, CA 125, CA 27.29, CEA, 15-3 (2) Sepsis Patient has a low grade fever with hypotension, responding well to IV fluids VBG shows a lactate of 0.8, consider ICU evaluation if changes in mental status. Vanc 1 gram q12h Discontinue Zosyn 3.375gm Q8h Added Cefepime 1 gm Q8H UA only shows +2 protien and +1 blood Influenza is negative in the ED CXR Procalcitonin NS 150 cc/hr (3) Prophylactic measure Lovenox 30mg SC daily pepcid 20mg SCDs Tylenol and Ibprofen prn for fever or pain. Motrin Prn <Deny Jones - Last Filed: 12/21/16 07:31> Objective - Vital Signs/Intake and Output Vital Signs (last 24 hours): Temp Pulse Resp BP Pulse Ox 97.8 F 84 20 93/59 L 100 12/21/16 00:00 12/21/16 00:00 12/21/16 00:00 12/21/16 00:00 12/21/16 00:00 - Medications Medications: Current Medications Acetaminophen (Tylenol 325mg Tab) 650 mg PO Q6 PRN PRN Reason: Fever >100.4 F Last Admin: 12/21/16 07:09 Dose: 650 mg Acetaminophen (Tylenol 325mg Tab) 650 mg PO Q6 PRN PRN Reason: Fever >100.4 F Last Admin: 12/19/16 18:17 Dose: 650 mg Famotidine (Pepcid) 20 mg PO BID [facility] Last Admin: 12/20/16 17:22 Dose: 20 mg Sodium Chloride (Sodium Chloride 0.9%) 1,000 mls @ 150 mls/hr IV .Q6H40M [facility] Last Admin: 12/21/16 06:58 Dose: Not Given Cefepime HCl 1 gm/ Dextrose 50 mls @ 100 mls/hr IVPB Q8H [facility] Last Admin: 12/21/16 03:48 Dose: 100 mls/hr Vancomycin HCl 1,000 mg/ (Sodium Chloride) 250 mls @ 166.6 mls/hr IVPB Q12H [facility] Last Admin: 12/21/16 00:00 Dose: 166.6 mls/hr Ibuprofen (Motrin Tab) 600 mg PO Q8H PRN PRN Reason: Pain, severe (8-10) Last Admin: 12/20/16 18:54 Dose: 600 mg Ondansetron HCl (Zofran Inj) 4 mg IVP Q6 PRN PRN Reason: Nausea/Vomiting - Labs Labs: PT 14.9 SECONDS (9.7-12.2) H 12/19/16 11:39 INR 1.3 12/19/16 11:39 APTT 47 SECONDS (21-34) H 12/19/16 11:39 Attending/Attestation - Attestation I have personally seen and examined this patient.: Yes I have fully participated in the care of the patient.: Yes I have reviewed all pertinent clinical information, including history, physical exam and plan: Yes Notes (Text): Medical Attending: Patient was seen and examined by me. Family present at bed side. Agree with the above note by the resident. I also spoke with Heme/Oncology as well This is a 51 year old female whom was here 1 month ago with weakness and pancytopenia. She had an EGD as well as colonscopy done at that time due to concerns for potential malignancy. However the biopsy returned and they did not show a carcinoma. She followed up with Hematology Oncology and was sent in to the ER. She had a liver area that is possible for maligancy on CT scan and we had ordered a biospy of this however from were advised to get MRI of the liver with metastatis protocol first. Also there is a very elevated WBC and bademia. She was already on IV abx however we changed it to Vancomycin and Cefepime. MRI of the head with contrast was also ordered as she had a CT scan of the head with concerning findings for malignancy. Patient does not speak [place]ian so I brought a computer translation service and we had a long conversation with patient and thank you Deny Jones
--- NOTE | 2016-12-20 15:22 | MRI ---
PROCEDURE: MRI BRAIN WITH AND WITHOUT CONTRAST HISTORY: suspected malignancy COMPARISON: None. TECHNIQUE: Multiplanar, multisequence MR images of the brain were obtained with and without intravenous contrast enhancement. FINDINGS: HEMORRHAGE: None DWI: No evidence of an acute or early subacute infarction. BRAIN PARENCHYMA: There is hyperintense T2 and FLAIR signal and isointense T1 signal lesion at the white matter of the right frontal lobe measures 12.3 millimeter in the largest diameter. This lesion demonstrates no significant enhancement in the postcontrast images. There is no evidence of adjacent edema or mass effect. There is also questionable hyperintense FLAIR signal lesion at the posterior aspect of the brain adjacent to the right tentorium image 16 series 11 versus prominent vessel. No atrophy or chronic microvascular ischemic changes. ENHANCEMENT: No abnormal intracranial enhancement. VENTRICLES: Unremarkable. No hydrocephalus. CRANIUM: Unremarkable. ORBITS: Grossly unremarkable. PARANASAL SINUSES/MASTOIDS: Clear VASCULAR SYSTEM: Skull base flow voids intact. OTHER FINDINGS: None . IMPRESSION: Right frontal white matter lesion demonstrate hyperintense T2 and FLAIR signal and isointense T1 signal without evidence of significant enhancement. Nonspecific findings. The possibility of brain metastasis is less likely but not totally excluded. No evidence of acute pathology in the brain. No evidence of enhancing mass lesion mass effect or midline shift.
--- NOTE | 2016-12-20 16:10 | RAD ---
HISTORY: cough COMPARISON: 11/16/2016 FINDINGS: LUNGS: No focal airspace opacity. Right paratracheal opacity noted. This was seen in the prior chest radiograph although it is more apparent on the current evaluation. PLEURA: No significant pleural effusion identified, no pneumothorax apparent. CARDIOVASCULAR: Normal. OSSEOUS STRUCTURES: The osseous structures demonstrate degenerative changes. VISUALIZED UPPER ABDOMEN: Upper abdomen is suboptimally evaluated. OTHER FINDINGS: None. IMPRESSION: Focal airspace opacity. Right paratracheal opacity noted. CT chest recommended.
[2016-12-20] MEDS ORDERED: Lidocaine 1% Inj (20ml) INFIL ONE (18:26)
--- NOTE | 2016-12-20 18:56 | PCM.PROC ---
Procedures Attestation:: I certify that I have explained the specified Operation(s) or Procedure(s), risks, benefits and reasonable alternatives to the Patient and/or other person responsible. The opportunity was given to ask questions and all questions answered - Central Line Placement Right Femoral Triple Lumen Catheter Aseptic technique was employed throughout the procedure: Hand Hygiene done prior to procedure, Full sterile barriers (mask, hair cover, sterile gown, sterile gloves), Full body sterile drape, Chloraprep Antiseptic: 2 minute prep for Femoral CVP Time Out Performed: Yes Pt. Placed on Pulse Ox Monitor: Yes Central Line Prep: Chlorhexidine-Alcohol Combination Local Anesthesia Used: Lidocaine 1% Amount of Anesthesia Used (mls): 6 Ultrasound Used for Placement: Yes Central Line Lumen Inserted: triple Central Line Length: 20 cm Post Procedure: Sutured in Place, Good Blood Return, All Ports Aspirated, Flushed, Capped, Sterile Dressing Applied Secured by: Suture Post procedure dressing: Clear vapor permeable, Chlorhexidine disc (Biopatch) Patient Tolerated Procedure: No Complications
[2016-12-21] MEDS: Sodium Chloride 0.9% 1,000 ML IV SCH ×4 (00:50→16:28)
[2016-12-21 07:54] LABS: BASO % 0.4 % (0.0-2.0); EOS # 0.2 K/uL (0.0-0.7); HEMATOCRIT 28.2 % (34.0-47.0); LYMPH # 0.9 K/uL (1.0-4.3); LYMPH % 13.9 % (20.0-40.0); MEAN CORPUSCULAR HEMOGLOBIN 27.7 pg (27.0-31.0); MEAN CORPUSCULAR HGB CONC 32.5 g/dL (33.0-37.0); MEAN PLATELET VOLUME 9.7 fL (7.2-11.7); MONO # 0.5 K/uL (0.0-0.8); MONO % 8.6 % (0.0-10.0); NRBC % 0.1 % (0.0-2.0); RED CELL DISTRIBUTION WIDTH 19.5 % (11.5-14.5); WHITE BLOOD COUNT 6.4 K/uL (4.8-10.8)
[2016-12-21 08:22] LABS: CHLORIDE 104 mmol/L (98-107)
[2016-12-21 08:23] LABS: POTASSIUM 3.8 mmol/L (3.6-5.2); SODIUM 137 mmol/L (132-148)
[2016-12-21 08:25] LABS: ALB/GLOB RATIO 0.9 (1.0-2.1); ALKALINE PHOSPHATASE 104 U/L (38-126); ALT/SGPT 43 U/L (9-52); AST/SGOT 48 U/L (14-36); BLOOD UREA NITROGEN 7 mg/dL (7-17); CARBON DIOXIDE 20 mmol/L (22-30); GFR AFRICAN-AMERICAN > 60; TOTAL PROTEIN 5.7 g/dL (6.3-8.3)
[2016-12-21 08:26] LABS: CALCIUM 8.1 mg/dl (8.6-10.4); GLUCOSE,RANDOM 156 mg/dL (65-105)
--- NOTE | 2016-12-21 10:53 | CP.PCM.PN ---
Subjective - Date & Time of Evaluation Date of Evaluation: 12/21/16 Time of Evaluation: 10:00 - Subjective Subjective: Patient was seen and examined by me with medical team helping with translation. Patient looked and felt depressed today. As mentioned previously, the patient is here due to concerns of malignancy of unclear origin. Previously had EGD and colonscopy and the biopy was negative. So far the tumor markers CA 15-3, CA 19-9, CA 125 and CEA are all in normal range. There was a liver area that we asked for biopsy - however per advice of IR to get a MRI of the liver with metastatic protocol - we are currently pending this test. Also the MRI of the brain returned and suggested a right side frontal hyperdense area that was non specific. They say brain metastasis is less likely but not excluded. They did not see acute findings. Continue on IV abx at this time. There was a fever last night. Today denied shortness of breath, denied chest pain. Reports +headache and + abdominal pain Objective - Vital Signs/Intake and Output Vital Signs (last 24 hours): Temp Pulse Resp BP Pulse Ox 98.7 F 60 20 149/70 98 12/21/16 08:00 12/21/16 08:00 12/21/16 08:00 12/21/16 08:00 12/21/16 08:00 Intake and Output: 12/21/16 12/21/16 06:59 18:59 Intake Total 1320 Balance 1320 - Medications Medications: Current Medications Acetaminophen (Tylenol 325mg Tab) 650 mg PO Q6 PRN PRN Reason: Fever >100.4 F Last Admin: 12/21/16 07:09 Dose: 650 mg Acetaminophen (Tylenol 325mg Tab) 650 mg PO Q6 PRN PRN Reason: Fever >100.4 F Last Admin: 12/19/16 18:17 Dose: 650 mg Famotidine (Pepcid) 20 mg PO BID [facility] Last Admin: 12/21/16 10:45 Dose: 20 mg Sodium Chloride (Sodium Chloride 0.9%) 1,000 mls @ 150 mls/hr IV .Q6H40M [facility] Last Admin: 12/21/16 06:58 Dose: Not Given Cefepime HCl 1 gm/ Dextrose 50 mls @ 100 mls/hr IVPB Q8H [facility] Last Admin: 12/21/16 10:45 Dose: 100 mls/hr Vancomycin HCl 1,000 mg/ (Sodium Chloride) 250 mls @ 166.6 mls/hr IVPB Q12H [facility] Last Admin: 12/21/16 10:49 Dose: 166.6 mls/hr Ibuprofen (Motrin Tab) 600 mg PO Q8H PRN PRN Reason: Pain, severe (8-10) Last Admin: 12/20/16 18:54 Dose: 600 mg Ondansetron HCl (Zofran Inj) 4 mg IVP Q6 PRN PRN Reason: Nausea/Vomiting - Labs Labs: 12/21/16 07:45 12/21/16 07:45 PT 14.9 SECONDS (9.7-12.2) H 12/19/16 11:39 INR 1.3 12/19/16 11:39 APTT 47 SECONDS (21-34) H 12/19/16 11:39 Assessment and Plan - Assessment and Plan (Free Text) Assessment: (1) Suspect metastatic cancer, unclear origin at this time. 12/21: MRI of the brain returned and did not show acute findings, however nonspecific ones. CA 125, CEA, CA19-9, CA15 returned and were negative. Pending MRI of the liver with metstatic protocol CT scan from - shows several hypodense lesions Heme/Onc consult, Dr. Chavarria, help appreciated - saw patient as outpatient yesterday MRI Brain with contrast today MRI liver, metastatic protocol tomorrow (2) Sepsis 12/21: Today there was not a differential, yesterday had bandemia and IV abx where changed. Procalcitonin is low. Day 2 of IV Vancomycin as well as Cefepime Patient has a low grade fever with hypotension, responding well to IV fluids VBG shows a lactate of 0.8, consider ICU evaluation if changes in mental status. UA only shows +2 protien and +1 blood Influenza is negative in the ED CXR Procalcitonin NS 150 cc/hr (3) Prophylactic measure Lovenox 30mg SC daily pepcid 20mg SCDs Tylenol and Ibprofen prn for fever or pain. Motrin Prn
[2016-12-21] MEDS ORDERED: Gadodiamide 287 MG/ML VIAL (15ML) IV ONE (14:58)
--- NOTE | 2016-12-21 18:31 | CP.PCM.CON ---
History of Present Illness - History of Present Illness History of Present Illness: 51 year old female with a history of uterine fibroids, pancytopenia, admitted with abdominal pain. The patient was sent to the hospital by me after seeing her for the first time in the office. She was referred to me for bone marrow consideration given her pancytopenia. She was extremely uncomfortable and reports to worsening abdominal pain, mainly radiating to the pelvis. She did admit to increasing fatigue and poor appetite. A CT scan in 10/2016 showed liver lesions concerning for metastatic disease. Past medical history: H.Pylori Past surgical history: None Family history: Denies hematologic and oncologic problems Social history: Denies tobacco, alcohol and illicit drug use. Allergies: NKA Review of systems: All remaining review of systems including HEENT, cardiovascular, respiratory, gastrointestinal, genitourinary, musculoskeletal, dermatologic, neurologic, and psychiatric are negative unless mentioned in the HPI. Past Patient History - Infectious Disease Hx of Infectious Diseases: None - Past Medical History & Family History Past Medical History?: Yes - Past Social History Smoking Status: Light Smoker < 10 Cigarettes Daily - CARDIAC Hx Cardiac Disorders: No - PULMONARY Hx Respiratory Disorders: No - NEUROLOGICAL Hx Neurological Disorder: No - HEENT Hx HEENT Problems: No - RENAL Hx Chronic Kidney Disease: No - ENDOCRINE/METABOLIC Hx Endocrine Disorders: No Hx Diabetes Mellitus Type 2: (DENIES 12/19) - HEMATOLOGICAL/ONCOLOGICAL Hx Blood Disorders: No - INTEGUMENTARY Hx Dermatological Problems: No - MUSCULOSKELETAL/RHEUMATOLOGICAL Hx Falls: No - GASTROINTESTINAL Hx Gastrointestinal Disorders: No - GENITOURINARY/GYNECOLOGICAL Hx Genitourinary Disorders: No - PSYCHIATRIC Hx Substance Use: No - SURGICAL HISTORY Hx Section: Yes - ANESTHESIA Hx Anesthesia: Yes Hx Anesthesia Reactions: No Meds Allergies/Adverse Reactions: Allergies Allergy/AdvReac Type Severity Reaction Status Date / Time No Known Allergies Allergy Verified 12/19/16 10:52 - Medications Medications: Current Medications Acetaminophen (Tylenol 325mg Tab) 650 mg PO Q6 PRN PRN Reason: Fever >100.4 F Last Admin: 12/21/16 16:27 Dose: 650 mg Acetaminophen (Tylenol 325mg Tab) 650 mg PO Q6 PRN PRN Reason: Fever >100.4 F Last Admin: 12/19/16 18:17 Dose: 650 mg Famotidine (Pepcid) 20 mg PO BID [facility] Last Admin: 12/21/16 18:09 Dose: 20 mg Cefepime HCl 1 gm/ Dextrose 50 mls @ 100 mls/hr IVPB Q8H [facility] Last Admin: 12/21/16 18:09 Dose: 100 mls/hr Vancomycin HCl 1,000 mg/ (Sodium Chloride) 250 mls @ 166.6 mls/hr IVPB Q12H [facility] Last Admin: 12/21/16 10:49 Dose: 166.6 mls/hr Sodium Chloride (Sodium Chloride 0.9%) 1,000 mls @ 100 mls/hr IV .Q10H [facility] Last Admin: 12/21/16 16:28 Dose: 100 mls/hr Ibuprofen (Motrin Tab) 600 mg PO Q8H PRN PRN Reason: Pain, severe (8-10) Last Admin: 12/20/16 18:54 Dose: 600 mg Ondansetron HCl (Zofran Inj) 4 mg IVP Q6 PRN PRN Reason: Nausea/Vomiting Physical Exam - Head Exam Head Exam: ATRAUMATIC - Eye Exam Eye Exam: Normal appearance - ENT Exam ENT Exam: Mucous Membranes Dry - Respiratory Exam Respiratory Exam: NORMAL BREATHING PATTERN - Cardiovascular Exam Cardiovascular Exam: +S1, +S2 - GI/Abdominal Exam GI & Abdominal Exam: Normal Bowel Sounds - Extremities Exam Extremities exam: Positive for: normal inspection - Neurological Exam Neurological exam: Oriented x3 - Psychiatric Exam Psychiatric exam: Normal Affect, Normal Mood - Skin Skin Exam: Warm Results - Vital Signs Recent Vital Signs: Last Vital Signs Temp 99 F 12/21/16 17:45 Pulse 101 H 12/21/16 15:00 Resp 21 12/21/16 15:00 BP 132/74 12/21/16 15:00 Pulse Ox 99 12/21/16 15:00 - Labs Result Diagrams: 12/21/16 07:45 12/21/16 07:45 Labs: Laboratory Results - last 24 hr 12/21/16 07:45 WBC 6.4 RBC 3.32 L Hgb 9.2 L Hct 28.2 L MCV 85.0 MCH 27.7 MCHC 32.5 L RDW 19.5 H Plt Count 116 L MPV 9.7 Neut % (Auto) 74.1 Lymph % (Auto) 13.9 L [place] % (Auto) 8.6 Eos % (Auto) 3.0 Baso % (Auto) 0.4 Neut # 4.7 Lymph # 0.9 L [place] # 0.5 Eos # 0.2 Baso # 0.0 Sodium 137 Potassium 3.8 Chloride 104 Carbon Dioxide 20 L Anion Gap 17 BUN 7 Creatinine 0.6 L Est GFR ( Amer) > 60 Est GFR (Non-Af Amer) > 60 Random Glucose 156 H Calcium 8.1 L Total Bilirubin 1.0 AST 48 H D ALT 43 Alkaline Phosphatase 104 Total Protein 5.7 L Albumin 2.7 L Globulin 2.9 Albumin/Globulin Ratio 0.9 L Assessment & Plan (1) Liver lesion Assessment and Plan: recommend biopsy ?malignancy Status: Acute (2) Anemia Assessment and Plan: prior work up consistent with chronic disease Status: Acute (3) Thrombocytopenia Assessment and Plan: mild HIV and hepatitis panel negative Thank you for this interesting consult. Status: Acute
[2016-12-22] MEDS: Sodium Chloride 0.9% 1,000 ML IV SCH ×4 (02:13→22:00)
[2016-12-22] MEDS ORDERED: guaiFENesin DM 100 mg-10 mg/5 ml UD PO PRN (02:15)
[2016-12-22 07:09] LABS: EOS # 0.1 K/uL (0.0-0.7); EOS % 1.2 % (0.0-4.0); HEMATOCRIT 25.7 % (34.0-47.0); LYMPH # 1.2 K/uL (1.0-4.3); LYMPH % 26.2 % (20.0-40.0); MEAN CELL VOLUME 83.9 fL (81.0-99.0); MEAN CORPUSCULAR HEMOGLOBIN 27.5 pg (27.0-31.0); MEAN CORPUSCULAR HGB CONC 32.8 g/dL (33.0-37.0); MONO # 0.7 K/uL (0.0-0.8); MONO % 14.9 % (0.0-10.0); NRBC % 0.1 % (0.0-2.0); RED CELL DISTRIBUTION WIDTH 19.2 % (11.5-14.5); WHITE BLOOD COUNT 4.7 K/uL (4.8-10.8)
[2016-12-22 07:20] LABS: CHLORIDE 103 mmol/L (98-107); POTASSIUM 3.4 mmol/L (3.6-5.2); SODIUM 136 mmol/L (132-148)
[2016-12-22 07:22] LABS: BILIRUBIN,TOTAL 0.8 mg/dL (0.2-1.3); GFR AFRICAN-AMERICAN > 60
[2016-12-22 07:23] LABS: ALB/GLOB RATIO 0.9 (1.0-2.1); ALKALINE PHOSPHATASE 96 U/L (38-126); ALT/SGPT 45 U/L (9-52); AST/SGOT 32 U/L (14-36); BLOOD UREA NITROGEN 6 mg/dL (7-17); CARBON DIOXIDE 23 mmol/L (22-30); GLUCOSE,RANDOM 108 mg/dL (65-105); PHOSPHOROUS 3.6 mg/dL (2.5-4.5); TOTAL PROTEIN 5.6 g/dL (6.3-8.3)
[2016-12-22 07:24] LABS: CALCIUM 7.9 mg/dl (8.6-10.4); MAGNESIUM 1.6 mg/dL (1.6-2.3)
--- NOTE | 2016-12-22 11:13 | CP.PCM.PN ---
Subjective - Date & Time of Evaluation Date of Evaluation: 12/22/16 Time of Evaluation: 11:00 - Subjective Subjective: Patient was seen and examined by me Her Tmax was very high 103.3 and then later 101 with tylenol and it decreased more. Blood culture microbiology is currently negative for 24hrs, she is now day 3 of IV Vancomycin and IV Cefepime. The only positive is from a urine culture but it was <10,000 CFU She had the MRI of the liver with metastatic protocol yesterday. Currently pending official read. The patient reports no chest pain today, no abdominal pain. She does report mild headache, also reports fever as well. She explains she is walking in the hallway whenever is here. Objective - Vital Signs/Intake and Output Vital Signs (last 24 hours): Temp Pulse Resp BP Pulse Ox 99 F 69 20 115/70 97 12/22/16 08:00 12/22/16 08:00 12/22/16 08:00 12/22/16 08:00 12/22/16 08:00 Intake and Output: 12/22/16 12/22/16 06:59 18:59 Intake Total 1200 Output Total 600 Balance 600 - Medications Medications: Current Medications Acetaminophen (Tylenol 325mg Tab) 650 mg PO Q6 PRN PRN Reason: Fever >100.4 F Last Admin: 12/22/16 00:20 Dose: 650 mg Acetaminophen (Tylenol 325mg Tab) 650 mg PO Q6 PRN PRN Reason: Fever >100.4 F Last Admin: 12/19/16 18:17 Dose: 650 mg Famotidine (Pepcid) 20 mg PO BID [facility] Last Admin: 12/22/16 10:59 Dose: 20 mg Guaifenesin/Dextromethorphan (Robitussin Dm) 5 ml PO Q4H PRN PRN Reason: Cough Cefepime HCl 1 gm/ Dextrose 50 mls @ 100 mls/hr IVPB Q8H [facility] Last Admin: 12/22/16 02:09 Dose: 100 mls/hr Vancomycin HCl 1,000 mg/ (Sodium Chloride) 250 mls @ 166.6 mls/hr IVPB Q12H [facility] Last Admin: 12/22/16 00:23 Dose: 166.6 mls/hr Sodium Chloride (Sodium Chloride 0.9%) 1,000 mls @ 100 mls/hr IV .Q10H [facility] Last Admin: 12/22/16 02:13 Dose: 100 mls/hr Ibuprofen (Motrin Tab) 600 mg PO Q8H PRN PRN Reason: Pain, severe (8-10) Last Admin: 12/20/16 18:54 Dose: 600 mg Ondansetron HCl (Zofran Inj) 4 mg IVP Q6 PRN PRN Reason: Nausea/Vomiting - Labs Labs: 12/22/16 07:01 12/22/16 07:01 PT 14.9 SECONDS (9.7-12.2) H 12/19/16 11:39 INR 1.3 12/19/16 11:39 APTT 47 SECONDS (21-34) H 12/19/16 11:39 - Constitutional Appears: No Acute Distress - Head Exam Head Exam: NORMAL INSPECTION - Eye Exam Eye Exam: EOMI, Normal appearance - ENT Exam ENT Exam: Mucous Membranes Moist - Respiratory Exam Respiratory Exam: Clear to Ausculation Bilateral, NORMAL BREATHING PATTERN - Cardiovascular Exam Cardiovascular Exam: REGULAR RHYTHM - GI/Abdominal Exam GI & Abdominal Exam: Soft, Normal Bowel Sounds - Neurological Exam Neurological Exam: Alert, Awake, Oriented x3 - Psychiatric Exam Psychiatric exam: Depressed, Normal Affect - Skin Skin Exam: Normal Color, Warm Assessment and Plan - Assessment and Plan (Free Text) Assessment: (1) Suspect metastatic cancer, unclear origin at this time. 12/22: Patient completed MRI of liver with metastatic protocol, still waiting for official read at the moment. Previously had blood transfusion due to anemia , the Hgb did decrease again. If need to transfuse. 12/21: MRI of the brain returned and did not show acute findings, however nonspecific ones. CA 125, CEA, CA19-9, CA15 returned and were negative. Pending MRI of the liver with metastatic protocol CT scan from - shows several hypodense lesions not clear origins Heme/Onc consult, Dr. Chavarria, help appreciated - saw patient as outpatient yesterday MRI Brain with contrast today (2) Sepsis 12/22: Patient is still spiking signifigant temperatures of 103, 101. Day 3 of IV abx now, WBC is low, but her intial CBC had a large bandemia count. We need to get CBC with differentials. Continue on IVF. 12/21: Today there was not a differential, yesterday had bandemia and IV abx where changed. Procalcitonin is low. Day 2 of IV Vancomycin as well as Cefepime Patient has a low grade fever with hypotension, responding well to IV fluids VBG shows a lactate of 0.8, consider ICU evaluation if changes in mental status. UA only shows +2 protien and +1 blood Influenza is negative in the ED CXR Procalcitonin NS 150 cc/hr (3) Prophylactic measure Lovenox 30mg SC daily pepcid 20mg SCDs Tylenol and Ibprofen prn for fever or pain. Motrin Prn
[2016-12-22] MEDS: Potassium Chloride 20 mEq ER Tab PO SCH (11:54)
[2016-12-23] MEDS: Sodium Chloride 0.9% 1,000 ML IV SCH ×3 (05:58→17:27)
[2016-12-23 07:30] LABS: BASO % 0.6 % (0.0-2.0); CHLORIDE 104 mmol/L (98-107); EOS # 0.1 K/uL (0.0-0.7); EOS % 2.1 % (0.0-4.0); HEMATOCRIT 24.3 % (34.0-47.0); LYMPH # 1.3 K/uL (1.0-4.3); LYMPH % 37.4 % (20.0-40.0); MEAN CELL VOLUME 83.3 fL (81.0-99.0); MEAN CORPUSCULAR HEMOGLOBIN 27.6 pg (27.0-31.0); MEAN CORPUSCULAR HGB CONC 33.1 g/dL (33.0-37.0); MEAN PLATELET VOLUME 9.4 fL (7.2-11.7); MONO # 0.6 K/uL (0.0-0.8); MONO % 18.2 % (0.0-10.0); POTASSIUM 3.8 mmol/L (3.6-5.2); RED CELL DISTRIBUTION WIDTH 19.1 % (11.5-14.5); SODIUM 137 mmol/L (132-148); WHITE BLOOD COUNT 3.5 K/uL (4.8-10.8)
[2016-12-23 07:32] LABS: BILIRUBIN,TOTAL 0.7 mg/dL (0.2-1.3); CARBON DIOXIDE 25 mmol/L (22-30); GFR AFRICAN-AMERICAN > 60
[2016-12-23 07:33] LABS: ALKALINE PHOSPHATASE 93 U/L (38-126); ALT/SGPT 46 U/L (9-52); AST/SGOT 35 U/L (14-36); BLOOD UREA NITROGEN 7 mg/dL (7-17); CALCIUM 7.9 mg/dl (8.6-10.4); GLUCOSE,RANDOM 99 mg/dL (65-105); PHOSPHOROUS 3.9 mg/dL (2.5-4.5); TOTAL PROTEIN 5.6 g/dL (6.3-8.3)
[2016-12-23 07:34] LABS: MAGNESIUM 1.8 mg/dL (1.6-2.3)
[2016-12-23] MEDS: Potassium Chloride 20 mEq ER Tab PO SCH (09:35)
--- NOTE | 2016-12-23 10:54 | CP.PCM.PN ---
<Tommy Zimmerman - Last Filed: 12/23/16 10:47> Subjective - Date & Time of Evaluation Date of Evaluation: 12/23/16 Time of Evaluation: 07:20 - Subjective Subjective: PGY-1 Medicine Progress Note for Adele Jones Patient seen and examined at bedside. No acute event overnight. Patient resting in bed comfortably. Patient stated that she feels much better today than previous days. She is tolerating diet and having BMs. Awainting MRI abdomen liver protocol report. Denied fever/chills, cp, sob, palpitations, abd pain, n/v /d. Objective - Vital Signs/Intake and Output Vital Signs (last 24 hours): Temp Pulse Resp BP Pulse Ox 97.6 F 84 20 106/64 99 12/23/16 07:33 12/23/16 07:33 12/23/16 07:33 12/23/16 07:33 12/23/16 07:33 - Medications Medications: Current Medications Acetaminophen (Tylenol 325mg Tab) 650 mg PO Q6 PRN PRN Reason: Fever >100.4 F Last Admin: 12/22/16 11:55 Dose: 650 mg Acetaminophen (Tylenol 325mg Tab) 650 mg PO Q6 PRN PRN Reason: Fever >100.4 F Last Admin: 12/19/16 18:17 Dose: 650 mg Famotidine (Pepcid) 20 mg PO BID [facility] Last Admin: 12/23/16 09:35 Dose: 20 mg Guaifenesin/Dextromethorphan (Robitussin Dm) 5 ml PO Q4H PRN PRN Reason: Cough Cefepime HCl 1 gm/ Dextrose 50 mls @ 100 mls/hr IVPB Q8H [facility] Last Admin: 12/23/16 02:38 Dose: 100 mls/hr Vancomycin HCl 1,000 mg/ (Sodium Chloride) 250 mls @ 166.6 mls/hr IVPB Q12H [facility] Last Admin: 12/22/16 23:11 Dose: 166.6 mls/hr Sodium Chloride (Sodium Chloride 0.9%) 1,000 mls @ 100 mls/hr IV .Q10H [facility] Last Admin: 12/23/16 08:21 Dose: Not Given Ibuprofen (Motrin Tab) 600 mg PO Q8H PRN PRN Reason: Pain, severe (8-10) Last Admin: 12/20/16 18:54 Dose: 600 mg Ondansetron HCl (Zofran Inj) 4 mg IVP Q6 PRN PRN Reason: Nausea/Vomiting Potassium Chloride (K-Dur 20 Meq Er Tab) 40 meq PO DAILY [facility] Last Admin: 12/23/16 09:35 Dose: 40 meq - Labs Labs: 12/23/16 07:06 12/23/16 07:06 PT 14.9 SECONDS (9.7-12.2) H 12/19/16 11:39 INR 1.3 12/19/16 11:39 APTT 47 SECONDS (21-34) H 12/19/16 11:39 - Constitutional Appears: No Acute Distress - Head Exam Head Exam: ATRAUMATIC, NORMOCEPHALIC - Eye Exam Eye Exam: EOMI, Normal appearance Pupil Exam: PERRL - ENT Exam ENT Exam: Mucous Membranes Moist - Neck Exam Neck Exam: Normal Inspection - Respiratory Exam Respiratory Exam: Clear to Ausculation Bilateral, NORMAL BREATHING PATTERN - Cardiovascular Exam Cardiovascular Exam: RRR, +S1, +S2 - GI/Abdominal Exam GI & Abdominal Exam: Soft, Normal Bowel Sounds. absent: Tenderness - Extremities Exam Extremities Exam: Normal Capillary Refill. absent: Calf Tenderness Additional comments: femoral TLC central line in place, dressing clean/dry/intact - Back Exam Back Exam: absent: CVA tenderness (L), CVA tenderness (R) - Neurological Exam Neurological Exam: Alert, Awake, CN II-XII Intact, Normal Gait, Oriented x3 - Psychiatric Exam Psychiatric exam: Normal Affect, Normal Mood - Skin Skin Exam: Dry, Intact, Normal Color, Warm Assessment and Plan - Assessment and Plan (Free Text) Plan: (1) Suspect metastatic cancer, unclear origin at this time. f/u MRI of liver with metastatic protocol report MRI of the brain returned and did not show acute findings, however nonspecific ones. CA 125, CEA, CA19-9, CA15 returned and were negative CT scan from - shows several hypodense lesions not clear origins Heme/Onc consult, Dr. Chavarria, help appreciated Transvaginal US: 2 uterine fibroids (see full report) (2) Sepsis afebrile IV Vancomycin and Cefepime Responding well to IV fluids VBG showed lactate of 0.8 on admission UA only shows +2 protien and +1 blood Influenza negative CXR: focal airspace opacity (see full report) Procalcitonin low NS 100 cc/hr (3) Anemia Patient is pancytopenic Hgb 8.4 --> 8.1 Transfuse if Hgb is < 8 Heme/Onc consult, Dr. Chavarria, help appreciated Monitor H/H (4) Pancytopenia Hgb 8.1 Platelets 122 WBC 3.5 Heme/Onc consult, Dr. Chavarria, help appreciated (5) Prophylactic measure Lovenox 30mg SC daily pepcid 20mg SCDs Tylenol and Ibprofen prn for fever or pain. Motrin Prn <Deny Jones H - Last Filed: 12/23/16 13:36> Objective - Vital Signs/Intake and Output Vital Signs (last 24 hours): Temp Pulse Resp BP Pulse Ox 97.6 F 84 20 106/64 99 12/23/16 07:33 12/23/16 07:33 12/23/16 07:33 12/23/16 07:33 12/23/16 07:33 - Medications Medications: Current Medications Acetaminophen (Tylenol 325mg Tab) 650 mg PO Q6 PRN PRN Reason: Fever >100.4 F Last Admin: 12/22/16 11:55 Dose: 650 mg Acetaminophen (Tylenol 325mg Tab) 650 mg PO Q6 PRN PRN Reason: Fever >100.4 F Last Admin: 12/19/16 18:17 Dose: 650 mg Famotidine (Pepcid) 20 mg PO BID [facility] Last Admin: 12/23/16 09:35 Dose: 20 mg Guaifenesin/Dextromethorphan (Robitussin Dm) 5 ml PO Q4H PRN PRN Reason: Cough Cefepime HCl 1 gm/ Dextrose 50 mls @ 100 mls/hr IVPB Q8H [facility] Last Admin: 12/23/16 10:57 Dose: 100 mls/hr Vancomycin HCl 1,000 mg/ (Sodium Chloride) 250 mls @ 166.6 mls/hr IVPB Q12H [facility] Last Admin: 12/23/16 11:29 Dose: 166.6 mls/hr Sodium Chloride (Sodium Chloride 0.9%) 1,000 mls @ 100 mls/hr IV .Q10H [facility] Last Admin: 12/23/16 08:21 Dose: Not Given Ibuprofen (Motrin Tab) 600 mg PO Q8H PRN PRN Reason: Pain, severe (8-10) Last Admin: 12/20/16 18:54 Dose: 600 mg Ondansetron HCl (Zofran Inj) 4 mg IVP Q6 PRN PRN Reason: Nausea/Vomiting Potassium Chloride (K-Dur 20 Meq Er Tab) 40 meq PO DAILY [facility] Last Admin: 12/23/16 09:35 Dose: 40 meq - Labs Labs: 12/23/16 07:06 12/23/16 07:06 PT 14.9 SECONDS (9.7-12.2) H 12/19/16 11:39 INR 1.3 12/19/16 11:39 APTT 47 SECONDS (21-34) H 12/19/16 11:39 Attending/Attestation - Attestation I have personally seen and examined this patient.: Yes I have fully participated in the care of the patient.: Yes I have reviewed all pertinent clinical information, including history, physical exam and plan: Yes Notes (Text): Medical attending: Patient was seen and examined by me, agrees the above note by medical service technician. At this moment were still pending the official read of the MRI of the liver, metastatic protocol. The patient's hemoglobin is also decreased to 8.1, at this point we will type and screen. If the hemoglobin should continue to drop tomorrow we will transfuse PRBCs. At this point we'll continue with the antibiotics, the cultures have been negative. Today she is afebrile mostly, however yesterday she had a MAXIMUM TEMPERATURE of 103 As mentioned before the MRI of the brain with contrast, was inconclusive. The patient may or may not need a bone marrow biopsy, however will need to clarify with hematology oncology Thank you very much, Deny Jones
--- NOTE | 2016-12-23 12:07 | MRI ---
PROCEDURE: MRI Abdomen with and without contrast HISTORY: Retroperitoneal lymphadenopathy. Liver lesions seen in the previous CT. COMPARISON: Comparison is made to the previous CT dated 11/18/[address] dated 12/19/2016.. TECHNIQUE: Multisequence, multiplanar MR images of the abdomen with and without gadolinium contrast enhancement. FINDINGS: LIVER: There is heterogeneous enhancement of the liver. The previously seen liver lesions in the previous CT dated 11/18/2016 are not seen in the current study. Again seen is well defined cystic nonenhancing lesion at the anterior medial aspect of the left liver lobe which has not significantly changed compared to the previous study measures 2.6 by 2.3 centimeter. No evidence of discrete mass lesion otherwise in the liver. GALLBLADDER: No evidence of acute cholecystitis or cholelithiasis. SPLEEN: Unremarkable. PANCREAS: Unremarkable. ADRENALS: Unremarkable. KIDNEYS: The kidneys enhance symmetrically. No evidence of hydronephrosis. AORTA: No aneurysm. ASCITES: None. PERITONEUM: Unremarkable. LYMPH NODES: Again seen are retroperitoneal lymphadenopathy. OTHER FINDINGS: None. IMPRESSION: Heterogeneous enhancement of the liver without evidence of discrete enhancing mass. Stable cystic lesion at the left liver lobe. Retroperitoneal/para-aortic lymphadenopathy.
[2016-12-24 06:44] LABS: BASO % 0.4 % (0.0-2.0); EOS # 0.2 K/uL (0.0-0.7); EOS % 4.4 % (0.0-4.0); HEMATOCRIT 24.9 % (34.0-47.0); LYMPH # 1.6 K/uL (1.0-4.3); LYMPH % 36.4 % (20.0-40.0); MEAN CELL VOLUME 83.2 fL (81.0-99.0); MEAN CORPUSCULAR HEMOGLOBIN 27.2 pg (27.0-31.0); MEAN CORPUSCULAR HGB CONC 32.7 g/dL (33.0-37.0); MEAN PLATELET VOLUME 9.2 fL (7.2-11.7); MONO # 0.9 K/uL (0.0-0.8); MONO % 21.3 % (0.0-10.0); NRBC % 0.2 % (0.0-2.0); PLATELET COUNT 154 K/uL (130-400); RED CELL DISTRIBUTION WIDTH 19.6 % (11.5-14.5); WHITE BLOOD COUNT 4.4 K/uL (4.8-10.8)
[2016-12-24 07:58] LABS: CHLORIDE 102 mmol/L (98-107); SODIUM 136 mmol/L (132-148)
[2016-12-24 08:01] LABS: ALKALINE PHOSPHATASE 86 U/L (38-126); ALT/SGPT 58 U/L (9-52); AST/SGOT 49 U/L (14-36); BILIRUBIN,TOTAL 0.6 mg/dL (0.2-1.3); BLOOD UREA NITROGEN 6 mg/dL (7-17); CALCIUM 7.7 mg/dl (8.6-10.4); CARBON DIOXIDE 25 mmol/L (22-30); GFR AFRICAN-AMERICAN > 60; GLUCOSE,RANDOM 97 mg/dL (65-105); TOTAL PROTEIN 5.6 g/dL (6.3-8.3)
[2016-12-24 08:03] VITALS: O2SAT 99
[2016-12-24 08:53] LABS: EOSINOPHIL 4 % (0-4); NEUTROPHIL 32 % (50-75); TOTAL CELLS COUNTED 100
[2016-12-24] MEDS: Potassium Chloride 20 mEq ER Tab PO SCH (09:17)
[2016-12-24 12:58] LABS: INR 1.3
--- NOTE | 2016-12-24 14:35 | CP.PCM.PN ---
<Tommy Zimmerman - Last Filed: 12/24/16 14:35> Subjective - Date & Time of Evaluation Date of Evaluation: 12/24/16 Time of Evaluation: 07:55 - Subjective Subjective: PGY-1 Medicine Progress Note for Dr. Griffith Patient seen and examined at bedside. No acute event overnight. Patient resting in bed comfortably. She has no complaints today. She is tolerating diet and having BMs. Patient will be going for liver biopsy either today or tomorrow. Denied fever/chills, cp, sob, palpitations, abd pain, n/v/d. Objective - Vital Signs/Intake and Output Vital Signs (last 24 hours): Temp Pulse Resp BP Pulse Ox 99.1 F 90 20 103/62 99 12/24/16 08:01 12/24/16 08:01 12/24/16 08:01 12/24/16 08:01 12/24/16 08:01 Intake and Output: 12/24/16 12/24/16 06:59 18:59 Intake Total 2480 Balance 2480 - Medications Medications: Current Medications Acetaminophen (Tylenol 325mg Tab) 650 mg PO Q6 PRN PRN Reason: Fever >100.4 F Last Admin: 12/23/16 19:50 Dose: 650 mg Acetaminophen (Tylenol 325mg Tab) 650 mg PO Q6 PRN PRN Reason: Fever >100.4 F Last Admin: 12/19/16 18:17 Dose: 650 mg Famotidine (Pepcid) 20 mg PO BID JUAN Last Admin: 12/24/16 10:53 Dose: 20 mg Guaifenesin/Dextromethorphan (Robitussin Dm) 5 ml PO Q4H PRN PRN Reason: Cough Last Admin: 12/24/16 12:03 Dose: 5 ml Cefepime HCl 1 gm/ Dextrose 50 mls @ 100 mls/hr IVPB Q8H JUAN Last Admin: 12/24/16 10:53 Dose: 100 mls/hr Vancomycin HCl 1,000 mg/ (Sodium Chloride) 250 mls @ 166.6 mls/hr IVPB Q12H JUAN Last Admin: 12/24/16 12:07 Dose: 166.6 mls/hr Sodium Chloride (Sodium Chloride 0.9%) 1,000 mls @ 100 mls/hr IV .Q10H JUAN Last Admin: 12/23/16 17:27 Dose: 100 mls/hr Ibuprofen (Motrin Tab) 600 mg PO Q8H PRN PRN Reason: Pain, severe (8-10) Last Admin: 12/20/16 18:54 Dose: 600 mg Ondansetron HCl (Zofran Inj) 4 mg IVP Q6 PRN PRN Reason: Nausea/Vomiting Potassium Chloride (K-Dur 20 Meq Er Tab) 40 meq PO DAILY [facility] Last Admin: 12/24/16 09:17 Dose: Not Given - Labs Labs: 12/24/16 06:30 12/24/16 04:00 PT 14.7 SECONDS (9.7-12.2) H 12/24/16 12:44 INR 1.3 12/24/16 12:44 APTT 29 SECONDS (21-34) 12/24/16 12:44 - Constitutional Appears: No Acute Distress - Head Exam Head Exam: ATRAUMATIC, NORMOCEPHALIC - Eye Exam Eye Exam: EOMI, Normal appearance Pupil Exam: PERRL - ENT Exam ENT Exam: Mucous Membranes Moist - Neck Exam Neck Exam: Normal Inspection - Respiratory Exam Respiratory Exam: Clear to Ausculation Bilateral, NORMAL BREATHING PATTERN - Cardiovascular Exam Cardiovascular Exam: REGULAR RHYTHM, +S1, +S2 - GI/Abdominal Exam GI & Abdominal Exam: Soft, Tenderness, Normal Bowel Sounds - Extremities Exam Extremities Exam: Normal Capillary Refill - Back Exam Back Exam: absent: CVA tenderness (L), CVA tenderness (R) - Neurological Exam Neurological Exam: Alert, Awake, CN II-XII Intact, Normal Gait, Oriented x3 - Psychiatric Exam Psychiatric exam: Normal Affect, Normal Mood - Skin Skin Exam: Dry, Intact, Normal Color, Warm Assessment and Plan - Assessment and Plan (Free Text) Plan: (1) Suspect metastatic cancer, unclear origin at this time. Liver biopsy MRI of liver with metastatic protocol report: Heterogeneous enhancement of the liver without evidence of discrete enhancing mass. Stable cystic lesion at the left liver lobe. Retroperitoneal/para-aortic lymphadenopathy (see full report) MRI of the brain returned and did not show acute findings, however nonspecific ones. CA 125, CEA, CA19-9, CA15 returned and were negative CT scan from - shows several hypodense lesions not clear origins Heme/Onc consult, Dr. Chavarria, help appreciated Transvaginal US: 2 uterine fibroids (see full report) (2) Sepsis afebrile IV Vancomycin and Cefepime Responding well to IV fluids VBG showed lactate of 0.8 on admission UA only shows +2 protien and +1 blood Influenza negative CXR: focal airspace opacity (see full report) Procalcitonin low NS 100 cc/hr (3) Anemia Patient is pancytopenic Hgb 8.1 Transfuse if Hgb is < 8 Heme/Onc consult, Dr. Chavarria, help appreciated Monitor H/H (4) Pancytopenia Hgb 8.1 Platelets 154 WBC 4.4 Heme/Onc consult, Dr. Chavarria, help appreciated (5) Prophylactic measure Lovenox 30mg SC daily pepcid 20mg SCDs Tylenol and Ibprofen prn for fever or pain. Motrin Prn <Ginny Griffith V - Last Filed: 12/25/16 09:39> Objective - Vital Signs/Intake and Output Vital Signs (last 24 hours): Temp Pulse Resp BP Pulse Ox 99.8 F H 88 18 114/69 99 12/24/16 15:00 12/24/16 15:00 12/24/16 15:00 12/24/16 15:00 12/24/16 15:00 - Labs Labs: 12/24/16 06:30 12/24/16 04:00 PT 14.7 SECONDS (9.7-12.2) H 12/24/16 12:44 INR 1.3 12/24/16 12:44 APTT 29 SECONDS (21-34) 12/24/16 12:44 Attending/Attestation - Attestation I have personally seen and examined this patient.: Yes I have fully participated in the care of the patient.: Yes I have reviewed all pertinent clinical information, including history, physical exam and plan: Yes Notes (Text): This is a late computer entry for 12/24/16. Patient seen, examined and case discussed with day-time resident. Patient reporting mild productive cough at bedside. Patient scheduled for IR liver biopsy as recommended by heme-onc. Discussed with IR, biospy cancelled because there is no discrete mass to biopsy. Discussed with heme-onc, who spoke with patient today, patient refused bone biopsy at this time, would like to wait. Heme-onc recommended to follow-up with him outpatient in 2-3 weeks for repeat CBC and possible outpatient bone marrow biopsy. Discussed with patient at bedside, who is aware and agrees with the plans. Discharge order and discharge instructions discussed with day-time resident. This is a summary of patient's hospitalization. Please see EMR for further details. Assessment/Plan (1) Suspect metastatic cancer, unclear origin at this time. IR biopsy cancelled lack of definite mass as noted on Abdominal MRI MRI of liver (12/21/16) with metastatic protocol report: Heterogeneous enhancement of the liver without evidence of discrete enhancing mass. Stable cystic lesion at the left liver lobe. Retroperitoneal/para-aortic lymphadenopathy (see full report) MRI Brain (12/20/16): no evidence of acute pathology, no evidence of enhancing mass lesion, mass effect, or midline shift, right frontal white matter lesion demonstrate hyperintense T2 and flair signal and isointense T1 signal without evidence of significanty enhancement. Nonspecific findings. CA 125, CEA, CA19-9, CA15 returned and were negative CT scan from - shows several hypodense lesions not clear origins Heme/Onc consult, Dr. Chavarria, help appreciated Transvaginal US: 2 uterine fibroids (see full report) Discharge planning: will follow-up with heme-onc in 2-3 weeks for repeat CBC and possible bone marrow biopsy; patient refused in patient bone marrow biopsy at this time (2) Sepsis Criteria: febrile, neutropenic, chest xray noted for opacity Patient treated with IV antibiotics for 5 days Blood cultures are negative Urine culture: shows mild growth, and patient asymptomatic of UTI Influenza negative CXR: focal airspace opacity (see full report) Procalcitonin low Discharge planning: completed IV abx; given guafessin OTC for supportive care (3) Pancytopenia Patient is pancytopenic Hgb 8.1 Transfuse if Hgb is < 8 Heme/Onc consult, Dr. Chavarria, help appreciated Monitor H/H Discharge planning: will follow-up with heme-onc for repeat CBC in 2-3 weeks; patient undergoing malignancy workup; may need bone marrow biopsy; refused inpatient (4) Prophylactic measure Lovenox 30mg SC daily pepcid 20mg PO daily SCDs Tylenol and Motrin PRN
--- NOTE | 2016-12-24 15:40 | CP.PCM.DIS ---
<RajeevmichelleTommy fiore - Last Filed: 12/24/16 17:04> Provider - Provider Date of Admission: 12/20/16 10:49 Attending physician: Pool Gillis MD Consults: HEME/ONC: Dr. Chavarria Time Spent in preparation of Discharge (in minutes): 45 Diagnosis - Discharge Diagnosis (1) Sepsis Status: Acute (2) Pancytopenia Status: Acute (3) Anemia Status: Acute (4) Thrombocytopenia Status: Acute Hospital Course - Lab Results Lab Results: Micro Results 12/21/16 18:30 Blood-Venous Blood Culture - Preliminary NO GROWTH AFTER 48 HOURS 12/21/16 19:00 Blood-Venous Blood Culture - Preliminary NO GROWTH AFTER 48 HOURS Most Recent Lab Values WBC 4.4 K/uL (4.8-10.8) L 12/24/16 06:30 RBC 3.00 Mil/uL (3.80-5.20) L 12/24/16 06:30 Hgb 8.1 g/dL (11.0-16.0) L 12/24/16 06:30 Hct 24.9 % (34.0-47.0) L 12/24/16 06:30 MCV 83.2 fL (81.0-99.0) 12/24/16 06:30 MCH 27.2 pg (27.0-31.0) 12/24/16 06:30 MCHC 32.7 g/dL (33.0-37.0) L 12/24/16 06:30 RDW 19.6 % (11.5-14.5) H 12/24/16 06:30 Plt Count 154 K/uL (130-400) 12/24/16 06:30 MPV 9.2 fL (7.2-11.7) 12/24/16 06:30 Neut % (Auto) 37.5 % (50.0-75.0) L 12/24/16 06:30 Lymph % (Auto) 36.4 % (20.0-40.0) 12/24/16 06:30 [place] % (Auto) 21.3 % (0.0-10.0) H 12/24/16 06:30 Eos % (Auto) 4.4 % (0.0-4.0) H 12/24/16 06:30 Baso % (Auto) 0.4 % (0.0-2.0) 12/24/16 06:30 Neut # 1.6 K/uL (1.8-7.0) L 12/24/16 06:30 Lymph # 1.6 K/uL (1.0-4.3) 12/24/16 06:30 [place] # 0.9 K/uL (0.0-0.8) H 12/24/16 06:30 Eos # 0.2 K/uL (0.0-0.7) 12/24/16 06:30 Baso # 0.0 K/uL (0.0-0.2) 12/24/16 06:30 Neutrophils % (Manual) 32 % (50-75) L 12/24/16 06:30 Band Neutrophils % 1 % (0-2) 12/24/16 06:30 Lymphocytes % (Manual) 39 % (20-40) 12/24/16 06:30 Monocytes % (Manual) 24 % (0-10) H 12/24/16 06:30 Eosinophils % (Manual) 4 % (0-4) 12/24/16 06:30 Platelet Estimate Normal (NORMAL) 12/24/16 06:30 Polychromasia Slight 12/20/16 07:13 Hypochromasia (manual) Moderate 12/24/16 06:30 Poikilocytosis (manual Slight 12/24/16 06:30 Anisocytosis (manual) Slight 12/24/16 06:30 Microcytosis (manual) Slight 12/24/16 06:30 Macrocytosis (manual) Slight 12/24/16 06:30 Target Cells Slight 12/24/16 06:30 PT 14.7 SECONDS (9.7-12.2) H 12/24/16 12:44 INR 1.3 12/24/16 12:44 APTT 29 SECONDS (21-34) 12/24/16 12:44 pO2 28 mm/Hg (30-55) L 12/19/16 14:56 VBG pH 7.48 (7.32-7.43) H 12/19/16 14:56 VBG pCO2 36 mmHg (40-60) L 12/19/16 14:56 VBG HCO3 26.5 mmol/L 12/19/16 14:56 VBG Total CO2 27.9 mmol/L (22-28) 12/19/16 14:56 VBG O2 Sat (Calc) 63.2 % (40-65) 12/19/16 14:56 VBG Base Excess 3.4 mmol/L (0.0-2.0) H 12/19/16 14:56 VBG Potassium 4.1 mmol/L (3.6-5.2) 12/19/16 14:56 Sodium 130.0 mmol/l (132-148) L 12/19/16 14:56 Chloride 103.0 mmol/L (98-107) 12/19/16 14:56 Glucose 111 mg/dl (65-105) H 12/19/16 14:56 Lactate 0.8 mmol/L (0.7-2.1) 12/19/16 14:56 Sodium 136 mmol/L (132-148) 12/24/16 04:00 Potassium 4.0 mmol/L (3.6-5.2) 12/24/16 04:00 Chloride 102 mmol/L (98-107) 12/24/16 04:00 Carbon Dioxide 25 mmol/L (22-30) 12/24/16 04:00 Anion Gap 13 (10-20) 12/24/16 04:00 BUN 6 mg/dL (7-17) L 12/24/16 04:00 Creatinine 0.6 MG/DL (0.7-1.2) L 12/24/16 04:00 Est GFR ( Amer) > 60 12/24/16 04:00 Est GFR (Non-Af Amer) > 60 12/24/16 04:00 Random Glucose 97 mg/dL (65-105) 12/24/16 04:00 Calcium 7.7 mg/dl (8.6-10.4) L 12/24/16 04:00 Phosphorus 3.9 mg/dL (2.5-4.5) 12/23/16 07:06 Magnesium 1.8 mg/dL (1.6-2.3) 12/23/16 07:06 Total Bilirubin 0.6 mg/dL (0.2-1.3) 12/24/16 04:00 AST 49 U/L (14-36) H D 12/24/16 04:00 ALT 58 U/L (9-52) H D 12/24/16 04:00 Alkaline Phosphatase 86 U/L (38-126) 12/24/16 04:00 Lactate Dehydrogenase 687 U/L (313-618) H 12/23/16 07:06 Total Protein 5.6 g/dL (6.3-8.3) L 12/24/16 04:00 Albumin 2.8 g/dL (3.5-5.0) L 12/24/16 04:00 Globulin 2.8 gm/dL (2.2-3.9) 12/24/16 04:00 Albumin/Globulin Ratio 1.0 (1.0-2.1) 12/24/16 04:00 Lipase 200 U/L (23-300) 12/19/16 11:39 Carcinoembryonic Ag 1.2 ng/mL (0-3.0) 12/20/16 15:35 CA 15-3 Antigen 19.5 U/mL (0-35) 12/20/16 07:13 CA 19-9 Antigen < 1.4 U/mL (0-37) 12/20/16 07:13 CA 27-29 22 U/mL (<38) 12/20/16 13:03 CA 125 Antigen 18.5 U/mL (0-35) 12/20/16 07:13 Procalcitonin 0.39 NG/ML (0.19-0.49) 12/20/16 13:00 Free T4 0.83 ng/dL (0.78-2.19) 12/20/16 07:13 TSH 3rd Generation 1.89 mIU/L (0.46-4.68) 12/20/16 07:13 Venous Blood Potassium 4.1 mmol/L (3.6-5.2) 12/19/16 14:56 Urine Color Yellow (YELLOW) 12/19/16 11:39 Urine Clarity Hazy (Clear) 12/19/16 11:39 Urine pH 5.0 (5.0-8.0) 12/19/16 11:39 Ur Specific [place] 1.020 (1.003-1.030) 12/19/16 11:39 Urine Protein 1+ mg/dL (NEGATIVE) H 12/19/16 11:39 Urine Glucose (UA) Normal mg/dL (Normal) 12/19/16 11:39 Urine Ketones Negative mg/dL (NEGATIVE) 12/19/16 11:39 Urine Blood 2+ (NEGATIVE) H 12/19/16 11:39 Urine Nitrate Negative (NEGATIVE) 12/19/16 11:39 Urine Bilirubin Negative (NEGATIVE) 12/19/16 11:39 Urine Urobilinogen Normal mg/dL (0.2-1.0) 12/19/16 11:39 Ur Leukocyte Esterase Trace Andrew/uL (Negative) 12/19/16 11:39 Urine WBC (Auto) 3 /hpf (0-5) 12/19/16 11:39 Urine RBC (Auto) 2 /hpf (0-3) 12/19/16 11:39 Ur Squamous Epith Cells 1 /hpf (0-5) 12/19/16 11:39 Influenza Typ A,B (EIA) Negative for flu a/b (NEGATIVE) 12/19/16 14:38 Blood Type A POSITIVE 12/23/16 13:57 Antibody Screen Negative 12/23/16 13:57 - Hospital Course Hospital Course: 51 year old female with a history of pancyopenia, uterine fibroids, and H. Pylori is here because she was sent by heme/oncologist Dr. Chavarria for liver biopsy. She was admitted last month and had a CT of the abdomen and pelvis that showed several hypodense lesions in the liver which was consistent with metistatic disease. She was seen in the clinic about 10 days ago. She was referred to Dr. Chavarria from the past admission for pancytopenia and also considered a bone marrow biopsy. She is currently complaining of lower abdominal pain, black pain, body aches, subjective fever and chills, and lower extremities weakness. She reports taking no medication at home. She denies changes in vision, hearing, chest pain, shortness of breath, cough, nausea, vomiting, blood in stool, joint pain, anxiety, or depression. She does complain of urinary urgency and generalized itching for the past several days. Patient was admitted for Sepsis. Patient was started on IV fluids and IV antibiotics. CT scan from 11/19 shows several hypodense lesions not clear origins while repeat CT head this admission did not show an interval change ( see full reports). Heme/Onc consulted, Dr. Chavarria, help was appreciated. VBG showed lactate of 0.8 on admission and UA only showed +2 protein and +1 blood. CA 125, CEA, CA19-9, CA15 returned and were negative. MRI of the brain revealed nonspecific findings (see full report). There was a high suspicion for malignancy, so MRI of liver with metastatic protocol report was done. It demonstrated Heterogeneous enhancement of the liver without evidence of discrete enhancing mass. Stable cystic lesion at the left liver lobe. Retroperitoneal/para-aortic lymphadenopathy (see full report). A transvaginal US revealed 2 uterine fibroids (see full report). Influenza A & B were negative , but CXR: focal airspace opacity (see full report). Patient remained on IV fluids and IV antibiotics until 12/24. Since it was determined by IR and Dr. chavarria that there was no liver mass to biopsy, patient was cleared fro discharge. At that time, patient was deemed medically stable for discharge by Dr. Griffith. patient was instructed to follow up with Dr. Chavarria in 2-3 weeks for CBC and Bone marrow biopsy as outpatient. This is a summary of the hospital course. Please refer to EMR for more specific details. Discharge Exam - Head Exam Head Exam: ATRAUMATIC, NORMOCEPHALIC - Eye Exam Eye Exam: EOMI, Normal appearance Pupil Exam: PERRL - ENT Exam ENT Exam: Mucous Membranes Moist - Neck Exam Neck exam: Normal Inspection - Respiratory Exam Respiratory Exam: Clear to PA & Lateral, NORMAL BREATHING PATTERN - Cardiovascular Exam Cardiovascular Exam: REGULAR RHYTHM, +S1, +S2 - GI/Abdominal Exam GI & Abdominal Exam: Normal Bowel Sounds, Soft. absent: Tenderness - Extremities Exam Extremities exam: normal capillary refill, pedal pulses present - Back Exam Back exam: absent: CVA tenderness (L), CVA tenderness (R) - Neurological Exam Neurological exam: Alert, CN II-XII Intact, Oriented x3 - Psychiatric Exam Psychiatric exam: Normal Affect, Normal Mood - Skin Skin Exam: Dry, Intact, Normal Color, Warm Discharge Plan - Discharge Medications Prescriptions: Guaifenesin [Mucinex] 600 mg PO Q12 #14 tab.er.12h - Follow Up Plan Condition: STABLE Disposition: HOME/ ROUTINE Instructions: Guaifenesin (By mouth), Myelodysplastic Syndromes (DC), Myelodysplastic Syndromes (GEN), Weakness (GEN) Additional Instructions: Patient medically stable for discharge by Dr. Griffith. Patient is to take new medications Mucinex and Robitussin for cough as needed. Patient is to follow up with PMD within 1 week of discharge. If no PMD, patietn is to establish care at [facility] in [facility] with Dr. Rebolledo. Patient is to follow up with Dr. Florencio Chavarria in 2 weeks for CBC and to schedule outpatient Bone marrow biopsy. Patient may resume physical activity as tolerated. Please return to ED if symptoms persist or condition worsens. All instructions stated above were discussed with patient in detail. She verbalized understanding and agreement. Referrals: Florencio Chavarria MD [Staff Provider] - Yulissa Rebolledo MD [Staff Provider] - <Ginny Griffith V - Last Filed: 12/25/16 09:40> Provider - Provider Date of Admission: 12/20/16 10:49 Attending physician: Pool Gillis MD Hospital Course - Lab Results Lab Results: Micro Results 12/21/16 18:30 Blood-Venous Blood Culture - Preliminary NO GROWTH AFTER 3 DAYS 12/21/16 19:00 Blood-Venous Blood Culture - Preliminary NO GROWTH AFTER 3 DAYS Most Recent Lab Values WBC 4.4 K/uL (4.8-10.8) L 12/24/16 06:30 RBC 3.00 Mil/uL (3.80-5.20) L 12/24/16 06:30 Hgb 8.1 g/dL (11.0-16.0) L 12/24/16 06:30 Hct 24.9 % (34.0-47.0) L 12/24/16 06:30 MCV 83.2 fL (81.0-99.0) 12/24/16 06:30 MCH 27.2 pg (27.0-31.0) 12/24/16 06:30 MCHC 32.7 g/dL (33.0-37.0) L 12/24/16 06:30 RDW 19.6 % (11.5-14.5) H 12/24/16 06:30 Plt Count 154 K/uL (130-400) 12/24/16 06:30 MPV 9.2 fL (7.2-11.7) 12/24/16 06:30 Neut % (Auto) 37.5 % (50.0-75.0) L 12/24/16 06:30 Lymph % (Auto) 36.4 % (20.0-40.0) 12/24/16 06:30 [place] % (Auto) 21.3 % (0.0-10.0) H 12/24/16 06:30 Eos % (Auto) 4.4 % (0.0-4.0) H 12/24/16 06:30 Baso % (Auto) 0.4 % (0.0-2.0) 12/24/16 06:30 Neut # 1.6 K/uL (1.8-7.0) L 12/24/16 06:30 Lymph # 1.6 K/uL (1.0-4.3) 12/24/16 06:30 [place] # 0.9 K/uL (0.0-0.8) H 12/24/16 06:30 Eos # 0.2 K/uL (0.0-0.7) 12/24/16 06:30 Baso # 0.0 K/uL (0.0-0.2) 12/24/16 06:30 Neutrophils % (Manual) 32 % (50-75) L 12/24/16 06:30 Band Neutrophils % 1 % (0-2) 12/24/16 06:30 Lymphocytes % (Manual) 39 % (20-40) 12/24/16 06:30 Monocytes % (Manual) 24 % (0-10) H 12/24/16 06:30 Eosinophils % (Manual) 4 % (0-4) 12/24/16 06:30 Platelet Estimate Normal (NORMAL) 12/24/16 06:30 Polychromasia Slight 12/20/16 07:13 Hypochromasia (manual) Moderate 12/24/16 06:30 Poikilocytosis (manual Slight 12/24/16 06:30 Anisocytosis (manual) Slight 12/24/16 06:30 Microcytosis (manual) Slight 12/24/16 06:30 Macrocytosis (manual) Slight 12/24/16 06:30 Target Cells Slight 12/24/16 06:30 PT 14.7 SECONDS (9.7-12.2) H 12/24/16 12:44 INR 1.3 12/24/16 12:44 APTT 29 SECONDS (21-34) 12/24/16 12:44 pO2 28 mm/Hg (30-55) L 12/19/16 14:56 VBG pH 7.48 (7.32-7.43) H 12/19/16 14:56 VBG pCO2 36 mmHg (40-60) L 12/19/16 14:56 VBG HCO3 26.5 mmol/L 12/19/16 14:56 VBG Total CO2 27.9 mmol/L (22-28) 12/19/16 14:56 VBG O2 Sat (Calc) 63.2 % (40-65) 12/19/16 14:56 VBG Base Excess 3.4 mmol/L (0.0-2.0) H 12/19/16 14:56 VBG Potassium 4.1 mmol/L (3.6-5.2) 12/19/16 14:56 Sodium 130.0 mmol/l (132-148) L 12/19/16 14:56 Chloride 103.0 mmol/L (98-107) 12/19/16 14:56 Glucose 111 mg/dl (65-105) H 12/19/16 14:56 Lactate 0.8 mmol/L (0.7-2.1) 12/19/16 14:56 Sodium 136 mmol/L (132-148) 12/24/16 04:00 Potassium 4.0 mmol/L (3.6-5.2) 12/24/16 04:00 Chloride 102 mmol/L (98-107) 12/24/16 04:00 Carbon Dioxide 25 mmol/L (22-30) 12/24/16 04:00 Anion Gap 13 (10-20) 12/24/16 04:00 BUN 6 mg/dL (7-17) L 12/24/16 04:00 Creatinine 0.6 MG/DL (0.7-1.2) L 12/24/16 04:00 Est GFR ( Amer) > 60 12/24/16 04:00 Est GFR (Non-Af Amer) > 60 12/24/16 04:00 Random Glucose 97 mg/dL (65-105) 12/24/16 04:00 Calcium 7.7 mg/dl (8.6-10.4) L 12/24/16 04:00 Phosphorus 3.9 mg/dL (2.5-4.5) 12/23/16 07:06 Magnesium 1.8 mg/dL (1.6-2.3) 12/23/16 07:06 Total Bilirubin 0.6 mg/dL (0.2-1.3) 12/24/16 04:00 AST 49 U/L (14-36) H D 12/24/16 04:00 ALT 58 U/L (9-52) H D 12/24/16 04:00 Alkaline Phosphatase 86 U/L (38-126) 12/24/16 04:00 Lactate Dehydrogenase 687 U/L (313-618) H 12/23/16 07:06 Total Protein 5.6 g/dL (6.3-8.3) L 12/24/16 04:00 Albumin 2.8 g/dL (3.5-5.0) L 12/24/16 04:00 Globulin 2.8 gm/dL (2.2-3.9) 12/24/16 04:00 Albumin/Globulin Ratio 1.0 (1.0-2.1) 12/24/16 04:00 Lipase 200 U/L (23-300) 12/19/16 11:39 Carcinoembryonic Ag 1.2 ng/mL (0-3.0) 12/20/16 15:35 CA 15-3 Antigen 19.5 U/mL (0-35) 12/20/16 07:13 CA 19-9 Antigen < 1.4 U/mL (0-37) 12/20/16 07:13 CA 27-29 22 U/mL (<38) 12/20/16 13:03 CA 125 Antigen 18.5 U/mL (0-35) 12/20/16 07:13 Procalcitonin 0.39 NG/ML (0.19-0.49) 12/20/16 13:00 Free T4 0.83 ng/dL (0.78-2.19) 12/20/16 07:13 TSH 3rd Generation 1.89 mIU/L (0.46-4.68) 12/20/16 07:13 Venous Blood Potassium 4.1 mmol/L (3.6-5.2) 12/19/16 14:56 Urine Color Yellow (YELLOW) 12/19/16 11:39 Urine Clarity Hazy (Clear) 12/19/16 11:39 Urine pH 5.0 (5.0-8.0) 12/19/16 11:39 Ur Specific [place] 1.020 (1.003-1.030) 12/19/16 11:39 Urine Protein 1+ mg/dL (NEGATIVE) H 12/19/16 11:39 Urine Glucose (UA) Normal mg/dL (Normal) 12/19/16 11:39 Urine Ketones Negative mg/dL (NEGATIVE) 12/19/16 11:39 Urine Blood 2+ (NEGATIVE) H 12/19/16 11:39 Urine Nitrate Negative (NEGATIVE) 12/19/16 11:39 Urine Bilirubin Negative (NEGATIVE) 12/19/16 11:39 Urine Urobilinogen Normal mg/dL (0.2-1.0) 12/19/16 11:39 Ur Leukocyte Esterase Trace Andrew/uL (Negative) 12/19/16 11:39 Urine WBC (Auto) 3 /hpf (0-5) 12/19/16 11:39 Urine RBC (Auto) 2 /hpf (0-3) 12/19/16 11:39 Ur Squamous Epith Cells 1 /hpf (0-5) 12/19/16 11:39 Influenza Typ A,B (EIA) Negative for flu a/b (NEGATIVE) 12/19/16 14:38 Blood Type A POSITIVE 12/23/16 13:57 Antibody Screen Negative 12/23/16 13:57 Attending/Attestation - Attestation I have personally seen and examined this patient.: Yes I have fully participated in the care of the patient.: Yes I have reviewed all pertinent clinical information, including history, physical exam and plan: Yes Notes (Text): This is a late computer entry for 12/24/16. Patient seen, examined and case discussed with day-time resident. Patient reporting mild productive cough at bedside. Patient scheduled for IR liver biopsy as recommended by heme-onc. Discussed with IR, biospy cancelled because there is no discrete mass to biopsy. Discussed with heme-onc, who spoke with patient today, patient refused bone biopsy at this time, would like to wait. Heme-onc recommended to follow-up with him outpatient in 2-3 weeks for repeat CBC and possible outpatient bone marrow biopsy. Discussed with patient at bedside, who is aware and agrees with the plans. Discharge order and discharge instructions discussed with day-time resident. This is a summary of patient's hospitalization. Please see EMR for further details. Assessment/Plan (1) Suspect metastatic cancer, unclear origin at this time. IR biopsy cancelled lack of definite mass as noted on Abdominal MRI MRI of liver (12/21/16) with metastatic protocol report: Heterogeneous enhancement of the liver without evidence of discrete enhancing mass. Stable cystic lesion at the left liver lobe. Retroperitoneal/para-aortic lymphadenopathy (see full report) MRI Brain (12/20/16): no evidence of acute pathology, no evidence of enhancing mass lesion, mass effect, or midline shift, right frontal white matter lesion demonstrate hyperintense T2 and flair signal and isointense T1 signal without evidence of significanty enhancement. Nonspecific findings. CA 125, CEA, CA19-9, CA15 returned and were negative CT scan from - shows several hypodense lesions not clear origins Heme/Onc consult, Dr. Chavarria, help appreciated Transvaginal US: 2 uterine fibroids (see full report) Discharge planning: will follow-up with heme-onc in 2-3 weeks for repeat CBC and possible bone marrow biopsy; patient refused in patient bone marrow biopsy at this time (2) Sepsis Criteria: febrile, neutropenic, chest xray noted for opacity Patient treated with IV antibiotics for 5 days Blood cultures are negative Urine culture: shows mild growth, and patient asymptomatic of UTI Influenza negative CXR: focal airspace opacity (see full report) Procalcitonin low Discharge planning: completed IV abx; given guafessin OTC for supportive care (3) Pancytopenia Patient is pancytopenic Hgb 8.1 Transfuse if Hgb is < 8 Heme/Onc consult, Dr. Chavarria, help appreciated Monitor H/H Discharge planning: will follow-up with heme-onc for repeat CBC in 2-3 weeks; patient undergoing malignancy workup; may need bone marrow biopsy; refused inpatient (4) Prophylactic measure Lovenox 30mg SC daily pepcid 20mg PO daily SCDs Tylenol and Motrin PRN
[2016-12-24 17:28] VITALS: BP 114/69; PULSE 88; RESP 18; TEMP 99.8
== END 2016-12-24 20:00 | disposition home or self-care (01) | DRG 901 ==
LOC: C.ER 10:43 → C.9E 12:53 → C.3T 18:26 → OBSVTOIN 12-20 10:49 → C.3T 12-22 16:59
PROVIDERS: ADMIT Hospitalist; ATTEND Internal Medicine
PROC: 02HV33Z Insertion of Infusion Device into Superior Vena Cava, Percutaneous Approach (ICD-10-PCS; principal; 2016-12-20)
DX: A41.9 Sepsis, unspecified organism (principal); D61.818 Other pancytopenia; R65.20 Severe sepsis without septic shock; F17.200 Nicotine dependence, unspecified, uncomplicated; K76.9 Liver disease, unspecified; D25.9 Leiomyoma of uterus, unspecified